=== PATIENT | male | born 1930 | race African-American/Black ===

== ENCOUNTER 2016-07-15 13:49 | Emergency (ER) | payer MEDICARE ==
[2016-07-15 15:00] LABS: VENOUS BLOOD BASE EXCESS -4.7 mmol/L; VENOUS BLOOD HCO3 20.7 mmol/L (20-32); VENOUS BLOOD PCO2 39.6 mmHg (35-63); VENOUS BLOOD PH 7.34 (7.30-7.42)
[2016-07-15 15:01] LABS: ABSOLUTE BASOPHILS # (AUTO) 0.1 10^3/uL (0.0-0.2); ABSOLUTE EOSINOPHILS # (AUTO) 0.1 10^3/uL (0.0-0.6); ABSOLUTE LYMPHOCYTES (AUTO) 1.6 10^3/uL (0.5-4.7); ABSOLUTE MONOCYTES (AUTO) 0.9 10^3/uL (0.1-1.4); ABSOLUTE NEUT (AUTO) 9.6 10^3/uL (1.7-8.2); BASOPHILS % (AUTO) 0.9 % (0-2); EOSINOPHILS % (AUTO) 0.7 % (0-6); HEMATOCRIT 24.7 % (37.9-51.0); HEMOGLOBIN 8.2 g/dL (13.5-17.0); HGB HCT DIFFERENCE -0.1; LYMPHOCYTES % (AUTO) 12.8 % (13-45); MEAN CORPUSCULAR HEMOGLOBIN 32.8 pg (27.0-33.4); MEAN CORPUSCULAR HGB CONC 33.2 g/dL (32.0-36.0); MEAN CORPUSCULAR VOLUME 99 fl (80-97); MONOCYTES % (AUTO) 7.7 % (3-13); RED CELL DISTRIBUTION WIDTH 16.5 % (11.5-14.0); SEGMENTED NEUTROPHILS % (AUTO) 77.9 % (42-78); WHITE BLOOD COUNT 12.3 10^3/uL (4.0-10.5)
[2016-07-15] MEDS ORDERED: IPRATROPIUM/ALBUTEROL 0.5-2.5 MG/3 ML AMPUL NEB ONE (15:07)
--- NOTE | 2016-07-15 15:07 | ER Document Report ---
[id number] Mode of Arrival: Medic Information source: Patient, Dr. Office Notes: 85-year-old male presents with complaints of intermittent productive cough over the past 3 days with generalized weakness. Patient denies any fevers or chills nausea vomiting or diarrhea. Patient denies any other concerns. He does note some wheezing which has resolved prior to my evaluation after breathing treatments TRAVEL OUTSIDE OF THE [place] IN LAST 30 DAYS: No - HPI Onset: Other - Three-day duration Onset/Duration: Persistent Quality of pain: No pain Severity: Mild Pain Level: 1 Associated symptoms: Body/muscle aches, Productive cough, Shortness of breath Exacerbated by: Denies Relieved by: Denies Similar symptoms previously: Yes Recently seen / treated by doctor: Yes - Related Data Allergies/Adverse Reactions: No Known Allergies Allergy (Unverified 11/16/15 22:22) Past Medical History - Social History Smoking Status: Never Smoker Cigarette use (# per day): No Chew tobacco use (# tins/day): No Smoking Education Provided: No Family History: CAD, Hyperlipidemia, Hypertension - Past Medical History Cardiac Medical History: Reports: Hx Atrial Fibrillation, Hx Hypertension Pulmonary Medical History: Reports: Hx COPD Endocrine Medical History: Reports: Hx Hypothyroidism Renal/ Medical History: Reports: Hx Benign Prostatic Hyperplasia GI Medical History: Reports: Hx Colonoscopy, Hx Endoscopy Musculoskeltal Medical History: Reports Hx Arthritis, Reports Hx Gout, Reports Hx Musculoskeletal Deformity, Reports Hx Musculoskeletal Trauma Traumatic Medical History: Reports: Hx Fractures - Foot Past Surgical History: Reports: Hx Abdominal Surgery - Hernia Repair, Hx Appendectomy, Hx Inguinal Hernia, Hx Orthopedic Surgery - R foot, Hx Tonsillectomy - Immunizations Hx Diphtheria, Pertussis, Tetanus Vaccination: Yes Hx Pneumococcal Vaccination: 05/20/06 Review of Systems - Review of Systems Notes: PHYSICAL EXAMINATION: GENERAL: Well-appearing, well-nourished and in no acute distress. HEAD: Atraumatic, normocephalic. EYES: Pupils equal round and reactive to light, extraocular movements intact, sclera anicteric, conjunctiva are normal. ENT: Nares patent, oropharynx clear without exudates. Moist mucous membranes. NECK: Normal range of motion, supple without lymphadenopathy LUNGS: Breath sounds clear to auscultation bilaterally and equal. No wheezes rales or rhonchi. No respiratory distress noted viral HEART: Regular rate and rhythm without murmurs ABDOMEN: Soft, nontender, nondistended abdomen. No guarding, no rebound. No masses appreciated. Musculoskeletal: Normal range of motion, no pitting or edema. No cyanosis. NEUROLOGICAL: Cranial nerves grossly intact. Normal speech, normal gait. Normal sensory, motor exams PSYCH: Normal mood, normal affect. SKIN: Warm, Dry, normal turgor, no rashes or lesions noted. Physical Exam - Vital signs Vitals: Temp Pulse Resp BP Pulse Ox 98.3 F 78 16 157/67 H 98 07/15/16 14:17 07/15/16 14:17 07/15/16 14:17 07/15/16 14:17 07/15/16 14:17 Course - Re-evaluation Re-evalutation: 07/15/16 15:07 Patient looks quite well in no respiratory distress, 07/15/16 16:18 pt ambulated in no distress, satting 100% will dc home with agreement of family 07/15/16 16:18 This is an 85-year-old gentleman who presented with concerns for pneumonia. Patient's chest x-ray is consistent with pneumonia, he has had normal vital signs throughout his visit, lab work notes chronic kidney disease mild anemia mild leukocytosis. Patient looks well. He was given breathing treatment prior to my evaluation and notes significant improvement in his breathing brother and [id number]: The room and they state they will return immediately if he does not feel well. I provided them with my card and phone number for the emergency department. Patient otherwise in no distress. Since patient is doing well I will give him the chance to go home as he wishes to be discharged, however if he does not do well I will immediately admit this patient if pain returns 07/15/16 19:54 After performing a Medical Screening Examination, I estimate there is LOW risk for ACUTE CORONARY SYNDROME, RESPIRATORY FAILURE, SEPSIS OR MENINGITIS, thus I consider the discharge disposition reasonable. The patient and I have discussed the diagnosis and risks, and we agree with discharging home with close follow- up. We also discussed returning to the Emergency Department immediately if new or worsening symptoms occur. We have discussed the symptoms which are most concerning (e.g., changing or worsening pain, trouble swallowing or breathing, neck stiffness, fever) that necessitate immediate return. 07/15/16 19:55 07/15/16 19:56 - Vital Signs Vital signs: Temp Pulse Resp BP Pulse Ox 98.3 F 78 15 162/60 H 99 07/15/16 16:47 07/15/16 14:17 07/15/16 16:01 07/15/16 16:47 07/15/16 16:47 - Laboratory Result Diagrams: 07/15/16 14:40 07/15/16 14:40 Laboratory results interpreted by me: 07/15/16 07/15/16 07/15/16 14:40 14:40 14:40 WBC 12.3 H RBC 2.50 L Hgb 8.2 L Hct 24.7 L MCV 99 H RDW 16.5 H Lymphocytes % 12.8 L Absolute Neutrophils 9.6 H PT 36.1 H Potassium 5.3 H Chloride 110 H BUN 39 H Creatinine 2.45 H Est GFR ( Amer) 30 L Est GFR (Non-Af Amer) 25 L Total Bilirubin 2.5 H Urine Protein Urine Ascorbic Acid 07/15/16 15:30 WBC RBC Hgb Hct MCV RDW Lymphocytes % Absolute Neutrophils PT Potassium Chloride BUN Creatinine Est GFR ( Amer) Est GFR (Non-Af Amer) Total Bilirubin Urine Protein 30 H Urine Ascorbic Acid 20 H - Diagnostic Test Radiology reviewed: Image reviewed, Reports reviewed Discharge - Discharge Clinical Impression: Cough Pneumonia Qualifiers: Pneumonia type: due to unspecified organism Laterality: right Lung location: lower lobe of lung Qualified Code(s): J18.1 - Lobar pneumonia, unspecified organism Condition: Stable Disposition: HOME, SELF-CARE Instructions: Pneumonia ([facility]) Additional Instructions: Return immediately if there are any concerns Prescriptions: Benzonatate [Tessalon Perle 100 mg Capsule] 100 mg PO Q8HP PRN #40 cap PRN Reason: Levofloxacin [Levaquin 750 mg Tablet] 750 mg PO DAILY #5 tablet Referrals: BILLY APARICIO DO [Primary Care Provider] - Follow up in 3-5 days
[2016-07-15 15:12] LABS: PROTHROMBIN TIME 36.1 SEC (11.4-15.4)
[2016-07-15 15:16] LABS: ALANINE AMINOTRANSFERASE 46 U/L (21-72); ALKALINE PHOSPHATASE 77 U/L (38-126); ANION GAP 12 (5-19); ASPARTATE AMINO TRANSFERASE 40 U/L (17-59); BILIRUBIN,TOTAL 2.5 mg/dL (0.2-1.3); BLOOD UREA NITROGEN 39 mg/dL (7-20); CALCIUM 9.6 mg/dL (8.4-10.2); CARBON DIOXIDE 22 mmol/L (22-30); CHLORIDE 110 mmol/L (98-107); CREATININE RESULT 2.45 mg/dL (0.52-1.25); GLUCOSE 93 mg/dL (75-110); POTASSIUM 5.3 mmol/L (3.6-5.0); SODIUM 143.6 mmol/L (137-145); TOTAL PROTEIN 7.7 g/dL (6.3-8.2)
[2016-07-15 15:52] LABS: APPEARANCE,URINE SLIGHTLY-CLOUDY; BILIRUBIN,URINE NEGATIVE (NEGATIVE); GLUCOSE, URINE NEGATIVE (NEGATIVE); KETONES,URINE NEGATIVE (NEGATIVE); LEUKOCYTE ESTERASE,URINE NEGATIVE (NEGATIVE); NITRITE,URINE NEGATIVE (NEGATIVE); PROTEIN,URINE 30 mg/dL (NEGATIVE); URINE SPECIFIC GRAVITY 1.013; UROBILINOGEN,URINE NEGATIVE mg/dL (<2.0)
[2016-07-15] MEDS ORDERED: LEVOFLOXACIN 750 MG TABLET PO ONE (15:58)
[2016-07-15] MEDS ORDERED: ALBUTEROL SULFATE HFA (90 MCG/PUFF) 8 GM MDI (1 MDI/ER DISP) IH PRN (16:19)
[2016-07-15] MEDS ORDERED: BENZONATATE 100 MG CAPSULE PO ONE (16:27)
[2016-07-15 16:48] VITALS: BP 162/60
--- NOTE | 2016-07-15 17:41 | EKG REPORT ---
SEVERITY:- ABNORMAL ECG - SINUS RHYTHM PROBABLE LEFT ATRIAL ABNORMALITY LVH WITH SECONDARY REPOLARIZATION ABNORMALITY : Confirmed by: Aydee Boston MD 15-Jul-2016 17:40:51
== END 2016-07-15 16:48 | disposition home or self-care (01) ==
LOC: ER 13:49
DX: J18.1 Lobar pneumonia, unspecified organism (principal); R05 Cough; R53.1 Weakness
CPT/HCPCS: 93005; 94640; 99284; 36415; 87040; 87086; 82962; 85025; 85610; 80053; 81001; 82803; 83605; 71010; 93010; A9270 ×3; J3490; J7620

== ENCOUNTER → 2016-10-22 | Outpatient (CLI) | payer MEDICARE ==
[2016-10-22 16:49] LABS: HEMATOCRIT 28.7 % (37.9-51.0); HEMOGLOBIN 9.8 g/dL (13.5-17.0); HGB HCT DIFFERENCE 0.7; MEAN CORPUSCULAR HEMOGLOBIN 32.7 pg (27.0-33.4); MEAN CORPUSCULAR VOLUME 96 fl (80-97); RED BLOOD COUNT 2.99 10^6/uL (4.35-5.55); RED CELL DISTRIBUTION WIDTH 17.8 % (11.5-14.0); WHITE BLOOD COUNT 9.5 10^3/uL (4.0-10.5)
[2016-10-22 17:18] LABS: ANION GAP 12 (5-19); BLOOD UREA NITROGEN 30 mg/dL (7-20); CALCIUM 9.3 mg/dL (8.4-10.2); CARBON DIOXIDE 20 mmol/L (22-30); CHLORIDE 110 mmol/L (98-107); CREATININE RESULT 1.97 mg/dL (0.52-1.25); GLUCOSE 99 mg/dL (75-110); POTASSIUM 5.1 mmol/L (3.6-5.0)
[2016-10-23 17:15] LABS: APPEARANCE,URINE SLIGHTLY-CLOUDY; BILIRUBIN,URINE NEGATIVE (NEGATIVE); GLUCOSE, URINE NEGATIVE (NEGATIVE); KETONES,URINE NEGATIVE (NEGATIVE); LEUKOCYTE ESTERASE,URINE NEGATIVE (NEGATIVE); NITRITE,URINE NEGATIVE (NEGATIVE); PROTEIN,URINE NEGATIVE (NEGATIVE); URINE SPECIFIC GRAVITY 1.011; UROBILINOGEN,URINE NEGATIVE mg/dL (<2.0)
== END ==
LOC: OD 16:07
PROVIDERS: ATTEND Internal Medicine Nephrology
DX: I12.9 Hypertensive chronic kidney disease with stage 1 through stage 4 chronic kidney disease, or unspecified chronic kidney disease (principal); N18.3 Chronic kidney disease, stage 3 (moderate); R60.9 Edema, unspecified; E11.9 Type 2 diabetes mellitus without complications; E87.5 Hyperkalemia
CPT/HCPCS: 36415; 80048; 81001; 85027

== ENCOUNTER → 2017-05-22 | Outpatient (CLI) | payer MEDICARE ==
[2017-05-22 09:04] LABS: ALANINE AMINOTRANSFERASE 27 U/L (21-72); ALKALINE PHOSPHATASE 73 U/L (38-126); ASPARTATE AMINO TRANSFERASE 25 U/L (17-59); BILIRUBIN,DIRECT 0.3 mg/dL (0.0-0.4); BILIRUBIN,TOTAL 0.5 mg/dL (0.2-1.3); CHOLESTEROL 131.25 mg/dL (0-200); TOTAL PROTEIN 7.3 g/dL (6.3-8.2); TRIGLYCERIDES 80 mg/dL (<150)
[2017-05-22 09:15] LABS: DIRECT LDL 63 mg/dL (<100)
== END ==
LOC: OD 08:11
PROVIDERS: ATTEND Specialist
DX: I27.20 Pulmonary hypertension, unspecified (principal); I27.9 Pulmonary heart disease, unspecified; I34.0 Nonrheumatic mitral (valve) insufficiency; E03.9 Hypothyroidism, unspecified; E78.5 Hyperlipidemia, unspecified; I36.1 Nonrheumatic tricuspid (valve) insufficiency; I48.2 Chronic atrial fibrillation; R09.89 Other specified symptoms and signs involving the circulatory and respiratory systems; R06.02 Shortness of breath; R06.00 Dyspnea, unspecified; I35.0 Nonrheumatic aortic (valve) stenosis; I12.9 Hypertensive chronic kidney disease with stage 1 through stage 4 chronic kidney disease, or unspecified chronic kidney disease; N18.3 Chronic kidney disease, stage 3 (moderate); I35.1 Nonrheumatic aortic (valve) insufficiency; Z79.899 Other long term (current) drug therapy
CPT/HCPCS: 36415; 80061; 80076

== ENCOUNTER → 2017-06-05 | Outpatient (CLI) | payer MEDICARE ==
--- NOTE | 2017-06-05 19:55 | XCELERA REPORT ---
[address] [address] Transthoracic Echocardiogram Report Name: IOANA FELICIANO Age: 86 yrs Gender: Male : 1930 Patient Status: Outpatient Patient Location: Study Date: 06/05/2017 03:09 PM Height: 72 in Weight: 180 lb BSA: 2.0 m2 Procedure: A two-dimensional transthoracic echocardiogram with color flow Doppler was performed. The study was technically limited with all images being suboptimal in quality. Reason For Study: SOB History: Shortness of breath. Ordering Physician: AYDEE ROSENBAUM Performed By: Latisha Brown Interpretation Summary The left ventricle is normal in size. There is mild concentric left ventricular hypertrophy. LV EF is > than 60% Left ventricular systolic function is normal. Doppler measurements suggest normal left ventricular diastolic function The left ventricular wall motion is normal. There is no thrombus. The right ventricle is normal in size and function. The left atrial size is normal. There is no evidence of mitral valve prolapse. There is no vegetation seen on the mitral valve. There is mild mitral stenosis There is a mild amount of mitral regurgitation There is no aortic valvular vegetation. There is severe aortic stenosis There is a peak gradient of 92 mm of Hg. There is a moderate amount of aortic regurgitation There is no LVOT obstruction. AV mean gradient 54 mm of Hg. There is a mild amount of tricuspid regurgitation There is no tricuspid stenosis. There is mild pulmonary hypertension by echo RVSP is 42 to 47 mm of Hg , with RA mean of 5 to 19. There is a trace amount of pulmonic regurgitation There is no pulmonic valvular stenosis. The aortic root is normal size. There is no pericardial effusion. MMode/2D Measurements & Calculations RVDd: 3.9 cm LVIDd: 5.1 cmFS: 33.2 % Ao root diam: 2.6 cm IVSd: 1.3 cm LVIDs: 3.4 cmEDV(Teich): 121.8 ml LVPWd: 1.3 cmESV(Teich): 46.9 ml Ao root area: 5.4 cm2 EF(Teich): 61.5 % LA dimension: 3.3 cm LVOT diam: 2.1 cm LVOT area: 3.6 cm2 Doppler Measurements & Calculations MV E max conor: MV P1/2t max conor: Ao V2 max: AI max conor: 181.0 cm/sec 179.6 cm/sec 478.9 cm/sec 397.4 cm/sec MV A max conor: MV P1/2t: 109.7 msec Ao max PG: AI max P.6 cm/sec MVA(P1/2t): 2.0 cm2 91.8 mmHg 63.3 mmHg MV E/A: 1.4 MV dec slope: Ao V2 mean: AI dec slope: 479.4 cm/sec2 345.2 cm/sec 236.3 cm/sec2 Ao mean PG: AI P1/2t: 53.5 mmHg 492.5 msec Ao V2 VTI: 122.2 cm BUNNY(I,D): 1.1 cm2 BUNNY(V,D): 1.0 cm2 LV V1 max PG: SV(LVOT): 138.4 ml PA V2 max: PI end-d conor: 7.5 mmHg 100.2 cm/sec 135.7 cm/sec LV V1 mean PG: PA max P.1 mmHg 4.0 mmHg LV V1 max: 136.4 cm/sec LV V1 mean: 95.3 cm/sec LV V1 VTI: 38.9 cm TR max conor: 301.1 cm/sec TR max P.3 mmHg Left Ventricle The left ventricle is normal in size. There is mild concentric left ventricular hypertrophy. LV EF is > than 60%. Left ventricular systolic function is normal. Doppler measurements suggest normal left ventricular diastolic function. The left ventricular wall motion is normal. There is no thrombus. Right Ventricle The right ventricle is normal in size and function. Atria The right atrium is normal. The left atrial size is normal. Mitral Valve There is mild mitral leaflet calcification. There is mild mitral annular calcification. There is no evidence of mitral valve prolapse. There is no vegetation seen on the mitral valve. There is mild mitral stenosis. There is a mild amount of mitral regurgitation. Aortic Valve There is no aortic valvular vegetation. There is severe aortic stenosis. There is a peak gradient of 92 mm of Hg. There is no LVOT obstruction. AV mean gradient 54 mm of Hg. There is a moderate amount of aortic regurgitation. Tricuspid Valve There is no tricuspid stenosis. There is a mild amount of tricuspid regurgitation. There is mild pulmonary hypertension by echo. RVSP is 42 to 47 mm of Hg , with RA mean of 5 to 19. Pulmonic Valve There is no pulmonic valvular stenosis. There is a trace amount of pulmonic regurgitation. Great Vessels The aortic root is normal size. Effusions There is no pericardial effusion. : AYDEE ROSENBAUM > Aydee Rosenbaum
== END ==
LOC: SP 14:54
PROVIDERS: ATTEND Specialist
DX: R06.02 Shortness of breath (principal)
CPT/HCPCS: 93306

== ENCOUNTER → 2017-06-14 | Outpatient (CLI) | payer MEDICARE ==
[2017-06-14 10:56] LABS: HEMATOCRIT 31.2 % (37.9-51.0); HEMOGLOBIN 10.5 g/dL (13.5-17.0); MEAN CORPUSCULAR HEMOGLOBIN 33.4 pg (27.0-33.4); MEAN CORPUSCULAR HGB CONC 33.8 g/dL (32.0-36.0); MEAN CORPUSCULAR VOLUME 99 fl (80-97); PLATELET COUNT 217 10^3/uL (150-450); RED BLOOD COUNT 3.15 10^6/uL (4.35-5.55); RED CELL DISTRIBUTION WIDTH 17.1 % (11.5-14.0); WHITE BLOOD COUNT 8.2 10^3/uL (4.0-10.5)
[2017-06-14 11:07] LABS: APPEARANCE,URINE CLEAR; BILIRUBIN,URINE NEGATIVE (NEGATIVE); COLOR,URINE YELLOW; GLUCOSE, URINE NEGATIVE (NEGATIVE); KETONES,URINE NEGATIVE (NEGATIVE); LEUKOCYTE ESTERASE,URINE NEGATIVE (NEGATIVE); NITRITE,URINE NEGATIVE (NEGATIVE); PROTEIN,URINE NEGATIVE (NEGATIVE); URINE SPECIFIC GRAVITY 1.009; UROBILINOGEN,URINE NEGATIVE mg/dL (<2.0)
[2017-06-14 11:28] LABS: ANION GAP 11 (5-19); BLOOD UREA NITROGEN 41 mg/dL (7-20); CALCIUM 9.4 mg/dL (8.4-10.2); CARBON DIOXIDE 22 mmol/L (22-30); CHLORIDE 108 mmol/L (98-107); GLUCOSE 99 mg/dL (75-110); POTASSIUM 5.7 mmol/L (3.6-5.0); SODIUM 140.7 mmol/L (137-145)
== END ==
LOC: OD 10:12
PROVIDERS: ATTEND Physician Assistant Medical
DX: I12.9 Hypertensive chronic kidney disease with stage 1 through stage 4 chronic kidney disease, or unspecified chronic kidney disease (principal); N18.3 Chronic kidney disease, stage 3 (moderate); D64.9 Anemia, unspecified; I50.9 Heart failure, unspecified
CPT/HCPCS: 36415; 80048; 81001; 85027

== ENCOUNTER → 2017-06-17 | Outpatient (CLI) | payer MEDICARE | LOC: OD 08:35 | PROVIDERS: ATTEND Physician Assistant Medical | DX: E87.5 Hyperkalemia (principal) | CPT/HCPCS: 36415; 84132 ==

== ENCOUNTER → 2017-07-12 | Outpatient (CLI) | payer MEDICARE ==
[2017-07-12 09:06] LABS: HEMATOCRIT 28.2 % (37.9-51.0); MEAN CORPUSCULAR HEMOGLOBIN 34.5 pg (27.0-33.4); MEAN CORPUSCULAR HGB CONC 35.4 g/dL (32.0-36.0); MEAN CORPUSCULAR VOLUME 97 fl (80-97); PLATELET COUNT 206 10^3/uL (150-450); RED BLOOD COUNT 2.89 10^6/uL (4.35-5.55); RED CELL DISTRIBUTION WIDTH 16.9 % (11.5-14.0); WHITE BLOOD COUNT 8.5 10^3/uL (4.0-10.5)
[2017-07-12 09:37] LABS: ALANINE AMINOTRANSFERASE 22 U/L (21-72); ALBUMIN 4.1 g/dL (3.5-5.0); ALKALINE PHOSPHATASE 57 U/L (38-126); ANION GAP 8 (5-19); ASPARTATE AMINO TRANSFERASE 26 U/L (17-59); BILIRUBIN,DIRECT 0.4 mg/dL (0.0-0.4); BILIRUBIN,TOTAL 0.9 mg/dL (0.2-1.3); BLOOD UREA NITROGEN 38 mg/dL (7-20); CALCIUM 9.3 mg/dL (8.4-10.2); CARBON DIOXIDE 22 mmol/L (22-30); CHLORIDE 109 mmol/L (98-107); GLUCOSE 95 mg/dL (75-110); IRON(TIBC) 81.7 ug/dL (49-181); PHOSPHORUS 3.3 mg/dL (2.5-4.5); POTASSIUM 5.5 mmol/L (3.6-5.0); SODIUM 138.8 mmol/L (137-145); TOTAL PROTEIN 7.4 g/dL (6.3-8.2); URIC ACID 6.5 mg/dL (3.5-8.5)
[2017-07-15 16:39] LABS: A/G RATIO 1.2 (0.7-1.7); ALBUMIN 2 3.8 g/dL (2.9-4.4); ALPHA-2-GLOBULIN 2 0.6 g/dL (0.4-1.0); BETA GLOBULINS 0.9 g/dL (0.7-1.3); GAMMA GLOBULIN 1.6 g/dL (0.4-1.8); GLOBULIN TOTAL 3.3 g/dL (2.2-3.9); MONOCLONAL SPIKE Not Observed g/dL (Not Observed); PROTEIN TOTAL SERUM 7.1 g/dL (6.0-8.5)
== END ==
LOC: OD 08:19
PROVIDERS: ATTEND Internal Medicine Nephrology
DX: I13.0 Hypertensive heart and chronic kidney disease with heart failure and stage 1 through stage 4 chronic kidney disease, or unspecified chronic kidney disease (principal); I50.9 Heart failure, unspecified; N18.3 Chronic kidney disease, stage 3 (moderate); D64.9 Anemia, unspecified; E87.5 Hyperkalemia
CPT/HCPCS: 36415; 80053; 82728; 83540; 83550; 83970; 84100; 84165; 84443; 84550; 85027

== ENCOUNTER → 2017-07-19 | Outpatient (CLI) | payer MEDICARE | LOC: OD 12:44 | PROVIDERS: ATTEND Internal Medicine Nephrology | DX: N18.3 Chronic kidney disease, stage 3 (moderate) (principal); E87.5 Hyperkalemia | CPT/HCPCS: 36415; 84132 ==

== ENCOUNTER → 2017-07-25 | Outpatient (CLI) | payer MEDICARE | LOC: OD 13:06 | PROVIDERS: ATTEND Internal Medicine Nephrology | DX: E87.5 Hyperkalemia (principal) | CPT/HCPCS: 36415; 84132 ==

== ENCOUNTER → 2017-08-28 | Outpatient (CLI) | payer MEDICARE ==
[2017-08-28 14:20] LABS: HEMATOCRIT 27.9 % (37.9-51.0); HEMOGLOBIN 9.6 g/dL (13.5-17.0); MEAN CORPUSCULAR HEMOGLOBIN 33.4 pg (27.0-33.4); MEAN CORPUSCULAR HGB CONC 34.3 g/dL (32.0-36.0); MEAN CORPUSCULAR VOLUME 98 fl (80-97); PLATELET COUNT 207 10^3/uL (150-450); RED BLOOD COUNT 2.86 10^6/uL (4.35-5.55); RED CELL DISTRIBUTION WIDTH 17.4 % (11.5-14.0); WHITE BLOOD COUNT 9.3 10^3/uL (4.0-10.5)
[2017-08-28 14:44] LABS: ANION GAP 10 (5-19); BLOOD UREA NITROGEN 42 mg/dL (7-20); CALCIUM 9.1 mg/dL (8.4-10.2); CARBON DIOXIDE 23 mmol/L (22-30); CHLORIDE 106 mmol/L (98-107); GLUCOSE 88 mg/dL (75-110); PHOSPHORUS 3.4 mg/dL (2.5-4.5); SODIUM 138.7 mmol/L (137-145); URIC ACID 4.9 mg/dL (3.5-8.5)
== END ==
LOC: OD 13:46
PROVIDERS: ATTEND Internal Medicine Nephrology
DX: N18.3 Chronic kidney disease, stage 3 (moderate) (principal); E87.5 Hyperkalemia; I50.9 Heart failure, unspecified; M10.00 Idiopathic gout, unspecified site
CPT/HCPCS: 36415; 80048; 83970; 84100; 84550; 85027

== ENCOUNTER → 2017-09-05 | Outpatient (CLI) | payer MEDICARE ==
--- NOTE | 2017-09-05 17:03 | RADIOLOGY REPORT (SQ) ---
EXAM DESCRIPTION: CHEST PA/LATERAL COMPLETED DATE/TIME: 09/05/2017 4:54 pm REASON FOR STUDY: HEART FAILURE, UNSPECIFIED COMPARISON: June 2016 EXAM PARAMETERS: NUMBER OF VIEWS: two views TECHNIQUE: Digital Frontal and Lateral radiographic views of the chest acquired. RADIATION DOSE: NA LIMITATIONS: none FINDINGS: LUNGS AND PLEURA: No consolidations or pleural effusions are identified. Prominent fairly diffuse bilateral interstitial changes are identified which presumably are chronic in nature however the possibility of an acute interstitial pneumonitis or interstitial edema cannot be excluded. MEDIASTINUM AND HILAR STRUCTURES: No masses or contour abnormalities. HEART AND VASCULAR STRUCTURES: Heart normal size. No evidence for failure. BONES: No acute findings. HARDWARE: None in the chest. OTHER: No other significant finding. IMPRESSION: No consolidations or pleural effusions are identified. Prominent interstitial changes a s noted above which presumably are chronic in nature although the possibility of an acute process can not be excluded. Clinical correlation is recommended. Other findings as noted above. TECHNICAL DOCUMENTATION: JOB ID: [id number] [employer]- All Rights Reserved Reading location - IP/workstation name: [email or web address]
== END ==
LOC: OD 16:40
PROVIDERS: ATTEND Internal Medicine Nephrology
DX: I13.0 Hypertensive heart and chronic kidney disease with heart failure and stage 1 through stage 4 chronic kidney disease, or unspecified chronic kidney disease (principal); N18.3 Chronic kidney disease, stage 3 (moderate); I50.9 Heart failure, unspecified; R06.02 Shortness of breath; D64.9 Anemia, unspecified
CPT/HCPCS: 71046

== ENCOUNTER → 2017-09-11 | Outpatient (CLI) | payer MEDICARE ==
[2017-09-11 15:50] LABS: HEMATOCRIT 29.9 % (37.9-51.0); HEMOGLOBIN 10.1 g/dL (13.5-17.0); MEAN CORPUSCULAR HGB CONC 33.8 g/dL (32.0-36.0); MEAN CORPUSCULAR VOLUME 98 fl (80-97); PLATELET COUNT 230 10^3/uL (150-450); RED BLOOD COUNT 3.06 10^6/uL (4.35-5.55); RED CELL DISTRIBUTION WIDTH 17.5 % (11.5-14.0); WHITE BLOOD COUNT 8.5 10^3/uL (4.0-10.5)
[2017-09-11 16:08] LABS: ANION GAP 15 (5-19); BLOOD UREA NITROGEN 46 mg/dL (7-20); CALCIUM 9.1 mg/dL (8.4-10.2); CARBON DIOXIDE 27 mmol/L (22-30); CHLORIDE 102 mmol/L (98-107); GLUCOSE 98 mg/dL (75-110); POTASSIUM 4.4 mmol/L (3.6-5.0); SODIUM 143.5 mmol/L (137-145)
== END ==
LOC: OD 14:32
PROVIDERS: ATTEND Internal Medicine Nephrology
DX: I12.9 Hypertensive chronic kidney disease with stage 1 through stage 4 chronic kidney disease, or unspecified chronic kidney disease (principal); N18.3 Chronic kidney disease, stage 3 (moderate); E87.5 Hyperkalemia; D64.9 Anemia, unspecified
CPT/HCPCS: 36415; 80048; 83735; 85027

== ENCOUNTER → 2017-09-27 | Outpatient (CLI) | payer MEDICARE ==
[2017-09-27 15:31] LABS: HEMATOCRIT 28.4 % (37.9-51.0); HEMOGLOBIN 9.9 g/dL (13.5-17.0); MEAN CORPUSCULAR HEMOGLOBIN 34.1 pg (27.0-33.4); MEAN CORPUSCULAR VOLUME 98 fl (80-97); PLATELET COUNT 203 10^3/uL (150-450); RED BLOOD COUNT 2.91 10^6/uL (4.35-5.55); RED CELL DISTRIBUTION WIDTH 16.9 % (11.5-14.0); WHITE BLOOD COUNT 8.7 10^3/uL (4.0-10.5)
[2017-09-27 15:53] LABS: ANION GAP 11 (5-19); BLOOD UREA NITROGEN 51 mg/dL (7-20); CALCIUM 9.7 mg/dL (8.4-10.2); CARBON DIOXIDE 29 mmol/L (22-30); CHLORIDE 102 mmol/L (98-107); GLUCOSE 119 mg/dL (75-110); PHOSPHORUS 3.4 mg/dL (2.5-4.5); POTASSIUM 4.4 mmol/L (3.6-5.0); SODIUM 142.1 mmol/L (137-145)
== END ==
LOC: OD 14:39
PROVIDERS: ATTEND Internal Medicine Nephrology
DX: N18.3 Chronic kidney disease, stage 3 (moderate) (principal); I50.9 Heart failure, unspecified; E87.5 Hyperkalemia
CPT/HCPCS: 36415; 80048; 83735; 83970; 84100; 85027

== ENCOUNTER → 2017-11-08 | Outpatient (CLI) | payer MEDICARE ==
[2017-11-08 11:32] LABS: HEMATOCRIT 29.3 % (37.9-51.0); HEMOGLOBIN 10.2 g/dL (13.5-17.0); MEAN CORPUSCULAR HEMOGLOBIN 34.5 pg (27.0-33.4); MEAN CORPUSCULAR HGB CONC 34.7 g/dL (32.0-36.0); MEAN CORPUSCULAR VOLUME 99 fl (80-97); PLATELET COUNT 189 10^3/uL (150-450); RED BLOOD COUNT 2.95 10^6/uL (4.35-5.55); RED CELL DISTRIBUTION WIDTH 17.3 % (11.5-14.0); WHITE BLOOD COUNT 7.4 10^3/uL (4.0-10.5)
[2017-11-08 11:47] LABS: ALBUMIN 4.1 g/dL (3.5-5.0); ASPARTATE AMINO TRANSFERASE 23 U/L (17-59); BILIRUBIN,DIRECT 0.4 mg/dL (0.0-0.4); BILIRUBIN,TOTAL 0.6 mg/dL (0.2-1.3); BLOOD UREA NITROGEN 46 mg/dL (7-20); CARBON DIOXIDE 23 mmol/L (22-30); CHLORIDE 109 mmol/L (98-107); CHOLESTEROL 144.91 mg/dL (0-200); GLUCOSE 98 mg/dL (75-110); NEONATAL BILIRUBIN RESULT 0.2 mg/dL (0.1-1.1); TOTAL PROTEIN 7.2 g/dL (6.3-8.2); TRIGLYCERIDES 111 mg/dL (<150)
[2017-11-08 11:48] LABS: ALANINE AMINOTRANSFERASE 22 U/L (21-72); ALKALINE PHOSPHATASE 58 U/L (38-126); CALCIUM 9.5 mg/dL (8.4-10.2); POTASSIUM 4.3 mmol/L (3.6-5.0)
[2017-11-08 11:49] LABS: ANION GAP 12 (5-19); SODIUM 144.3 mmol/L (137-145)
[2017-11-08 11:58] LABS: DIRECT LDL 71 mg/dL (<100)
[2017-11-08 12:03] LABS: FREE T4 (FREE THYROXINE) 1.01 ng/dL (0.78-2.19)
[2017-11-08 12:26] LABS: CALCIUM 9.5 mg/dL (8.4-10.2)
[2017-11-08 12:27] LABS: ANION GAP 12 (5-19); BLOOD UREA NITROGEN 46 mg/dL (7-20); CARBON DIOXIDE 23 mmol/L (22-30); CHLORIDE 109 mmol/L (98-107); GLUCOSE 98 mg/dL (75-110); PHOSPHORUS 3.8 mg/dL (2.5-4.5); POTASSIUM 4.3 mmol/L (3.6-5.0); SODIUM 144.3 mmol/L (137-145)
[2017-11-08 12:40] LABS: IRON(TIBC) 28.7 ug/dL (49-181)
== END ==
LOC: OD 10:53
PROVIDERS: ATTEND Internal Medicine Nephrology
DX: I13.0 Hypertensive heart and chronic kidney disease with heart failure and stage 1 through stage 4 chronic kidney disease, or unspecified chronic kidney disease (principal); N18.3 Chronic kidney disease, stage 3 (moderate); I50.9 Heart failure, unspecified; D64.9 Anemia, unspecified; E78.2 Mixed hyperlipidemia; E06.3 Autoimmune thyroiditis
CPT/HCPCS: 36415; 80048; 80053; 80061; 82728; 83540; 83550; 83970; 84100; 84439; 84443; 85027

== ENCOUNTER → 2018-01-02 | Outpatient (CLI) | payer MEDICARE ==
[2018-01-02 10:27] LABS: HEMATOCRIT 30.3 % (37.9-51.0); HEMOGLOBIN 10.2 g/dL (13.5-17.0); MEAN CORPUSCULAR HEMOGLOBIN 33.7 pg (27.0-33.4); MEAN CORPUSCULAR HGB CONC 33.8 g/dL (32.0-36.0); MEAN CORPUSCULAR VOLUME 100 fl (80-97); PLATELET COUNT 228 10^3/uL (150-450); RED BLOOD COUNT 3.04 10^6/uL (4.35-5.55); RED CELL DISTRIBUTION WIDTH 18.9 % (11.5-14.0); WHITE BLOOD COUNT 10.1 10^3/uL (4.0-10.5)
[2018-01-02 11:20] LABS: ANION GAP 16 (5-19); BLOOD UREA NITROGEN 57 mg/dL (7-20); CALCIUM 8.8 mg/dL (8.4-10.2); CARBON DIOXIDE 18 mmol/L (22-30); CHLORIDE 110 mmol/L (98-107); GLUCOSE 92 mg/dL (75-110); POTASSIUM 4.5 mmol/L (3.6-5.0); SODIUM 143.8 mmol/L (137-145)
== END ==
LOC: OD 09:38
PROVIDERS: ATTEND Internal Medicine Nephrology
DX: N18.3 Chronic kidney disease, stage 3 (moderate) (principal); I50.9 Heart failure, unspecified
CPT/HCPCS: 36415; 80048; 83735; 85027

== ENCOUNTER → 2018-03-04 | Outpatient (CLI) | payer MEDICARE ==
[2018-03-04 11:47] LABS: HEMATOCRIT 33.7 % (37.9-51.0); HEMOGLOBIN 11.3 g/dL (13.5-17.0); MEAN CORPUSCULAR HEMOGLOBIN 32.9 pg (27.0-33.4); MEAN CORPUSCULAR HGB CONC 33.4 g/dL (32.0-36.0); MEAN CORPUSCULAR VOLUME 98 fl (80-97); PLATELET COUNT 211 10^3/uL (150-450); RED BLOOD COUNT 3.43 10^6/uL (4.35-5.55); RED CELL DISTRIBUTION WIDTH 20.4 % (11.5-14.0); WHITE BLOOD COUNT 11.3 10^3/uL (4.0-10.5)
[2018-03-04 12:03] LABS: ANION GAP 10 (5-19); BLOOD UREA NITROGEN 35 mg/dL (7-20); CALCIUM 9.4 mg/dL (8.4-10.2); CARBON DIOXIDE 21 mmol/L (22-30); CHLORIDE 111 mmol/L (98-107); GLUCOSE 102 mg/dL (75-110); PHOSPHORUS 4.2 mg/dL (2.5-4.5); POTASSIUM 5.2 mmol/L (3.6-5.0); SODIUM 142.3 mmol/L (137-145)
== END ==
LOC: OD 10:46
PROVIDERS: ATTEND Internal Medicine Nephrology
DX: I13.0 Hypertensive heart and chronic kidney disease with heart failure and stage 1 through stage 4 chronic kidney disease, or unspecified chronic kidney disease (principal); N18.4 Chronic kidney disease, stage 4 (severe); I50.9 Heart failure, unspecified; D64.9 Anemia, unspecified
CPT/HCPCS: 36415; 80048; 83735; 83970; 84100; 85027

== ENCOUNTER 2018-06-07 12:52 | Emergency (ER) | payer MEDICARE ==
--- NOTE | 2018-06-07 13:26 | ER Document Report ---
ED Medical Screen (RME) - General Chief Complaint: Hip Pain Stated Complaint: FALL-HIP/LEG PAIN Time Seen by Provider: 06/07/18 13:24 Notes: Patient tripped injuring his house and fell on his left hip. Ever since, he is not been able to bear weight on the hip. Denies any other injuries such as head or neck, chest, or abdomen. History of some surgical procedure for aortic stenosis performed at [facility]. On aspirin but no other blood thinners. TRAVEL OUTSIDE OF THE [place] IN LAST 30 DAYS: No - Related Data Allergies/Adverse Reactions: No Known Allergies Allergy (Unverified 11/16/15 22:22) Past Medical History - Social History Chew tobacco use (# tins/day): No Frequency of alcohol use: None Drug Abuse: None - Past Medical History Cardiac Medical History: Reports: Hx Atrial Fibrillation, Hx Hypertension Pulmonary Medical History: Reports: Hx COPD Endocrine Medical History: Reports: Hx Hypothyroidism Renal/ Medical History: Reports: Hx Benign Prostatic Hyperplasia. Denies: Hx Peritoneal Dialysis GI Medical History: Reports: Hx Colonoscopy, Hx Endoscopy Musculoskeltal Medical History: Reports Hx Arthritis, Reports Hx Gout, Reports Hx Musculoskeletal Deformity, Reports Hx Musculoskeletal Trauma Traumatic Medical History: Reports: Hx Fractures - Foot Past Surgical History: Reports: Hx Abdominal Surgery - Hernia Repair, Hx Appendectomy, Hx Cardiac Surgery - aortic vavle replacement., Hx Inguinal Hernia, Hx Orthopedic Surgery - R foot, Hx Tonsillectomy - Immunizations Hx Diphtheria, Pertussis, Tetanus Vaccination: Yes Physical Exam - Vital signs Vitals: Temp Pulse Resp BP Pulse Ox 97.6 F 56 L 18 158/55 H 98 06/07/18 13:11 06/07/18 13:11 06/07/18 13:11 06/07/18 13:11 06/07/18 13:11 Course - Vital Signs Vital signs: Temp Pulse Resp BP Pulse Ox 97.6 F 56 L 18 158/55 H 98 06/07/18 13:11 06/07/18 13:11 06/07/18 13:11 06/07/18 13:11 06/07/18 13:11 Doctor's Discharge - Discharge Referrals: Morris CHRISTIANSON MD [Primary Care Provider] - Follow up as needed
--- NOTE | 2018-06-07 14:03 | RADIOLOGY REPORT (SQ) ---
EXAM DESCRIPTION: HIP LEFT AP/LATERAL COMPLETED DATE/TIME: 06/07/2018 1:43 pm REASON FOR STUDY: Fell on left hip 2 days ago. COMPARISON: None. NUMBER OF VIEWS: Two views. TECHNIQUE: AP pelvis and additional frog-leg view of the left hip. LIMITATIONS: None. FINDINGS: MINERALIZATION: Normal. LEFT HIP: No fracture or dislocation. No worrisome bone lesions. RIGHT HIP: No fracture or dislocation. No worrisome bone lesions. PUBIS AND ISCHIUM: No fracture. PELVIS: No fracture. SACRUM: No fracture or dislocation. No worrisome bone lesions. LOWER LUMBAR SPINE: No fracture or dislocation. No worrisome bone lesions. No significant disc disea se. SOFT TISSUES: No findings. OTHER: No other significant finding. IMPRESSION: NEGATIVE STUDY OF THE LEFT HIP AND PELVIS. NO RADIOGRAPHIC EVIDENCE OF ACUTE INJURY. TECHNICAL DOCUMENTATION: JOB ID: [id number] [employer]- All Rights Reserved Reading location - IP/workstation name: [email or web address]
[2018-06-07] MEDS ORDERED: METHYLPREDNISOLONE ACETATE INJ 40 MG/1 ML ML IM ONE (14:29)
[2018-06-07] MEDS ORDERED: ACETAMINOPHEN 325 MG TABLET PO ONE (14:29)
--- NOTE | 2018-06-07 14:34 | ER Document Report ---
ED General - General Chief Complaint: Hip Pain Stated Complaint: FALL-HIP/LEG PAIN Time Seen by Provider: 06/07/18 13:24 Notes: Patient is a 87-year-old male that presents to the emergency department for chief complaint of left hip pain after fall. He states that he tripped and fell this past , while he was at home, this was in his garage going to the door, and he landed on his left side. Denies head or neck injury. Denies numbness, weakness or tingling. Denies having any headache at this time. He is mainly complaining of pain in the left hip laterally, which she describes as a 4 out of 10, but can be worse with ambulating, at rest, it is not causing him any pain. He denies having any lightheadedness, chest pain, shortness of breath, rib pain or arm pain. Past Medical History: CKD, anemia Past Surgical History: TAVR Social History: Denies tobacco, alcohol or drug use Family History: Reviewed and noncontributory for presenting illness Allergies: Reviewed, see documented allergy list. REVIEW OF SYSTEMS: Other than noted above, the 12 point review of systems was reviewed with the patient and were negative, all pertinent findings are included in the HPI. PHYSICAL EXAMINATION: Vital signs reviewed, nursing noted reviewed. GENERAL: Elderly male, well-appearing, well-nourished and in no acute distress. HEAD: Atraumatic, normocephalic. EYES: Eyes appear normal, extraocular movements intact, sclera anicteric, conjunctiva are normal. ENT: nares patent, oropharynx clear without exudates. Moist mucous membranes. NECK: Normal range of motion, supple without lymphadenopathy LUNGS: Breath sounds clear to auscultation bilaterally and equal. No wheezes rales or rhonchi. HEART: Heart rate mildly bradycardic, regular rhythm with 1/6 systolic murmur ABDOMEN: Soft, nontender, normoactive bowel sounds. No rebound, guarding, or rigidity. No masses appreciated. EXTREMITIES: Patient has mild tenderness over the left trochanteric bursa, no hematoma or ecchymosis noted, no gross deformities. Negative logrolling, patient has good range of motion of the hip, knee and ankle. No other injuries or tenderness noted, the rest the extremity exam is grossly unremarkable, nontender, good range of motion, no pitting or edema. NEUROLOGICAL: No focal neurological deficits. Moves all extremities spontaneously Motor and sensory grossly intact on exam. PSYCH: Normal mood, normal affect. SKIN: Warm, Dry, normal turgor, no rashes or lesions noted on exposed skin TRAVEL OUTSIDE OF THE [place] IN LAST 30 DAYS: No - Related Data Allergies/Adverse Reactions: No Known Allergies Allergy (Unverified 11/16/15 22:22) Past Medical History - Social History Smoking Status: Former Smoker Chew tobacco use (# tins/day): No Frequency of alcohol use: None Drug Abuse: None Family History: CAD, Hyperlipidemia, Hypertension Patient has suicidal ideation: No Patient has homicidal ideation: No - Past Medical History Cardiac Medical History: Reports: Hx Atrial Fibrillation, Hx Hypertension Pulmonary Medical History: Reports: Hx COPD Endocrine Medical History: Reports: Hx Hypothyroidism Renal/ Medical History: Reports: Hx Benign Prostatic Hyperplasia. Denies: Hx Peritoneal Dialysis GI Medical History: Reports: Hx Colonoscopy, Hx Endoscopy Musculoskeletal Medical History: Reports Hx Arthritis, Reports Hx Gout, Reports Hx Musculoskeletal Deformity, Reports Hx Musculoskeletal Trauma Traumatic Medical History: Reports: Hx Fractures - Foot Past Surgical History: Reports: Hx Abdominal Surgery - Hernia Repair, Hx Appendectomy, Hx Cardiac Surgery - aortic vavle replacement., Hx Inguinal Hernia, Hx Orthopedic Surgery - R foot, Hx Tonsillectomy - Immunizations Hx Diphtheria, Pertussis, Tetanus Vaccination: Yes Hx Pneumococcal Vaccination: 05/20/06 Physical Exam - Vital signs Vitals: Temp Pulse Resp BP Pulse Ox 97.6 F 56 L 18 158/55 H 98 06/07/18 13:11 06/07/18 13:11 06/07/18 13:11 06/07/18 13:11 06/07/18 13:11 Course - Re-evaluation Re-evalutation: Patient seen and examined, vital signs reviewed, patient appears well on my exam, he did have tenderness over the left trochanteric bursa, will treat him with Depo-Medrol IM injection, advised warm or cool compresses, and Tylenol for pain control. His x-rays were reviewed and were negative for any acute fracture or bony injury, I personally reviewed them myself as well. Advised him if his symptoms are not much improving that he could either return to the emergency department, or follow-up with orthopedic surgery which she was agreeable to. Avoiding NSAIDs in this patient, as he has a history of chronic kidney disease. - Vital Signs Vital signs: Temp Pulse Resp BP Pulse Ox 97.6 F 56 L 18 158/55 H 98 06/07/18 13:11 06/07/18 13:11 06/07/18 13:11 06/07/18 13:11 06/07/18 13:11 Discharge - Discharge Clinical Impression: Left hip pain Condition: Stable Disposition: HOME, SELF-CARE Instructions: Bursitis ([facility]) Additional Instructions: Please take Tylenol 1000 mg every 8 hours at home for pain, and use a warm or cool compress for 20 minutes on and 20 minutes off to help alleviate some pain, continue to use your walker, and follow-up with orthopedic surgery if your symptoms are not improving over the next several days, as you may need physical therapy. Referrals: Morris CHRISTIANSON MD [Primary Care Provider] - Follow up as needed MENA ALLEN MD [ACTIVE STAFF] - Follow up in 3-5 days
[2018-06-07 15:51] VITALS: BP 179/67
== END 2018-06-07 15:36 | disposition home or self-care (01) ==
LOC: ER 12:52
DX: M25.552 Pain in left hip (principal); W01.0XXA Fall on same level from slipping, tripping and stumbling without subsequent striking against object, initial encounter; Z87.891 Personal history of nicotine dependence; I10 Essential (primary) hypertension; J44.9 Chronic obstructive pulmonary disease, unspecified
CPT/HCPCS: 99283; 96372; 73502; A9270; J1020

== ENCOUNTER → 2018-06-20 | Outpatient (CLI) | payer MEDICARE ==
[2018-06-20 15:03] LABS: ABSOLUTE BASOPHILS # (AUTO) 0.1 10^3/uL (0.0-0.2); ABSOLUTE EOSINOPHILS # (AUTO) 0.1 10^3/uL (0.0-0.6); ABSOLUTE LYMPHOCYTES (AUTO) 1.7 10^3/uL (0.5-4.7); ABSOLUTE MONOCYTES (AUTO) 0.6 10^3/uL (0.1-1.4); ABSOLUTE NEUT (AUTO) 9.4 10^3/uL (1.7-8.2); APPEARANCE,URINE SLIGHTLY-CLOUDY; BASOPHILS % (AUTO) 1.2 % (0-2); BILIRUBIN,URINE NEGATIVE (NEGATIVE); COLOR,URINE YELLOW; EOSINOPHILS % (AUTO) 0.5 % (0-6); GLUCOSE, URINE NEGATIVE (NEGATIVE); HEMATOCRIT 31.8 % (37.9-51.0); HEMOGLOBIN 10.8 g/dL (13.5-17.0); KETONES,URINE NEGATIVE (NEGATIVE); LEUKOCYTE ESTERASE,URINE NEGATIVE (NEGATIVE); LYMPHOCYTES % (AUTO) 14.1 % (13-45); MEAN CORPUSCULAR HEMOGLOBIN 33.2 pg (27.0-33.4); MEAN CORPUSCULAR HGB CONC 33.9 g/dL (32.0-36.0); MEAN CORPUSCULAR VOLUME 98 fl (80-97); MONOCYTES % (AUTO) 4.9 % (3-13); NITRITE,URINE NEGATIVE (NEGATIVE); PLATELET COUNT 214 10^3/uL (150-450); PROTEIN,URINE 100 mg/dL (NEGATIVE); RED BLOOD COUNT 3.24 10^6/uL (4.35-5.55); RED CELL DISTRIBUTION WIDTH 19.4 % (11.5-14.0); SEGMENTED NEUTROPHILS % (AUTO) 79.3 % (42-78); TOTAL CELLS COUNTED % (AUTO) 100 %; URINE SPECIFIC GRAVITY 1.017; UROBILINOGEN,URINE NEGATIVE mg/dL (<2.0); WHITE BLOOD COUNT 11.9 10^3/uL (4.0-10.5)
[2018-06-20 15:18] LABS: ANION GAP 9 (5-19); BLOOD UREA NITROGEN 45 mg/dL (7-20); CALCIUM 9.6 mg/dL (8.4-10.2); CARBON DIOXIDE 25 mmol/L (22-30); CHLORIDE 109 mmol/L (98-107); GLUCOSE 120 mg/dL (75-110); PHOSPHORUS 3.2 mg/dL (2.5-4.5); POTASSIUM 5.2 mmol/L (3.6-5.0); SODIUM 143.1 mmol/L (137-145)
== END ==
LOC: OD 14:22
PROVIDERS: ATTEND Internal Medicine Nephrology
DX: I13.0 Hypertensive heart and chronic kidney disease with heart failure and stage 1 through stage 4 chronic kidney disease, or unspecified chronic kidney disease (principal); N18.3 Chronic kidney disease, stage 3 (moderate); I50.9 Heart failure, unspecified; E87.5 Hyperkalemia
CPT/HCPCS: 36415; 80048; 81001; 83970; 84100; 85025

== ENCOUNTER 2018-07-09 20:23 | Inpatient (IN) | payer MEDICARE ==
--- NOTE | 2018-07-09 20:31 | ER Document Report ---
ED Neuro Symptoms/Deficit - General Chief Complaint: Weakness Stated Complaint: STROKE SYMPTOMS Time Seen by Provider: 07/09/18 20:30 Primary Care Provider: Morris CHRISTIANSON MD [Primary Care Provider] - Follow up as needed Mode of Arrival: Medic Information source: Patient, Emergency Med Personnel Notes: HISTORY OF PRESENT ILLNESS: Patient is a 87-year-old male with a past medical history of atrial fibrillation not currently anticoagulated, diabetes, hypertension, and multiple other chronic conditions who presents with acute difficulty speaking with left-sided weakness starting at approximately 1930 p.m. Symptoms had already improved by the time the patient arrived in the emergency department by EMS. Patient denies confusion or weakness, no head injuries, no vision changes, no chest pain or shortness of breath, no fevers or chills. Location: Left-sided Onset: Sudden at approximately 1930, now improving Provocation: Unknown Quality: "Weak" Radiation: None Severity: Mild to moderate Timing: Improving and nearly resolved REVIEW OF SYSTEMS: CONSTITUTIONAL : Denies fever or chills, no sweats. Denies recent illness. EENT: Denies eye, ear, throat, or mouth pain or symptoms. Denies nasal or sinus congestion. CARDIOVASCULAR: Denies chest pain. RESPIRATORY: Denies cough, cold, or chest congestion. Denies shortness of breath, difficulty breathing, or wheezing. GASTROINTESTINAL: Denies abdominal pain. Denies nausea, vomiting, or diarrhea. Denies constipation. GENITOURINARY: Denies difficulty urinating, painful urination, burning, freque ncy, or blood in urine. MUSCULOSKELETAL: Denies neck or back pain or joint pain or swelling. SKIN: Denies rash or skin lesions. HEMATOLOGIC : Denies easy bruising or bleeding. LYMPHATIC: Denies swollen, enlarged glands. NEUROLOGICAL: Positive for left-sided weakness. Denies altered mental status or loss of consciousness. Denies headache. Denies problems with gait. Denies sensory loss. PSYCHIATRIC: Denies anxiety or stress or depression. All other systems reviewed and negative. PHYSICAL EXAMINATION: GENERAL: Well-appearing, well-nourished and in no acute distress. HEAD: Atraumatic, normocephalic. No scalp deformity, depression, or crepitance. EYES: Pupils are 2mm and equal/round/reactive to light, extraocular movements intact, sclera anicteric, conjunctiva are normal. ENT: Nares patent bilaterally, oropharynx clear without exudates or palatal petechia. Moist mucous membranes. No tonsil hypertrophy. NECK: Normal range of motion, supple without lymphadenopathy. LUNGS: Breath sounds present, equal, and clear to auscultation bilaterally. No wheezes, rales, or rhonchi. HEART: Regular rate, irregularly irregular rhythm. No murmurs, rubs, or gallops. 2+ peripheral pulses. Normal capillary refill. ABDOMEN: Soft, nontender, nondistended. Normoactive bowel sounds. No guarding, no rebound. No masses appreciated. BACK: Normal contour, no midline tenderness. Rectal exam deferred. GENITAL: Deferred. EXTREMITIES: Normal range of motion, no pitting or edema. No cyanosis. NEUROLOGICAL: No focal neurological deficits. Moves all extremities spontaneously and on command. Face is symmetric, tongue is midline, equal 5/5 strength in bilateral upper and lower extremities, no pronator drift. NIH stroke score of 1 for slight left lower extremity touchdown before 10 seconds was up. PSYCH: Normal mood, normal affect. No suicidal thoughts/ideations. No homocidal thoughts/ideations. No hallucinations. SKIN: Warm, dry, normal turgor, no rashes or lesions noted. ASSESSMENT AND PLAN: This patient is a 87-year-old male who presents with acute left-sided weakness now improving that could be TIA versus stroke versus UTI. 1. Will obtain code stroke labs and admit to the hospital. 2. 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 TRAVEL OUTSIDE OF THE [place] IN LAST 30 DAYS: No - Related Data Allergies/Adverse Reactions: No Known Allergies Allergy (Unverified 11/16/15 22:22) Past Medical History - General Information source: Patient, Emergency Med Personnel - Social History Smoking Status: Former Smoker Chew tobacco use (# tins/day): No Frequency of alcohol use: None Drug Abuse: None Lives with: Family Family History: CAD, Hyperlipidemia, Hypertension - Past Medical History Cardiac Medical History: Reports: Hx Atrial Fibrillation, Hx Hypertension Pulmonary Medical History: Reports: Hx COPD EENT Medical History: Reports: None Neurological Medical History: Reports: None Endocrine Medical History: Reports: Hx Hypothyroidism Renal/ Medical History: Reports: Hx Benign Prostatic Hyperplasia. Denies: Hx Peritoneal Dialysis Malignancy Medical History: Reports None GI Medical History: Reports: Hx Colonoscopy, Hx Endoscopy Musculoskeletal Medical History: Reports Hx Arthritis, Reports Hx Gout, Reports Hx Musculoskeletal Deformity, Reports Hx Musculoskeletal Trauma Skin Medical History: Reports None Psychiatric Medical History: Reports: None Traumatic Medical History: Reports: Hx Fractures - Foot Infectious Medical History: Reports: None Past Surgical History: Reports: Hx Abdominal Surgery - Hernia Repair, Hx Appendectomy, Hx Cardiac Surgery - aortic vavle replacement., Hx Inguinal Hernia, Hx Orthopedic Surgery - R foot, Hx Tonsillectomy - Immunizations Immunizations up to date: Yes Hx Diphtheria, Pertussis, Tetanus Vaccination: Yes History of Influenza Vaccine for 02/2017 - 07/2017 Season: Yes Hx Pneumococcal Vaccination: 05/20/06 Course - Re-evaluation Re-evalutation: 07/10/18 00:48 CT head official read is still pending but preliminary does not show acute infarct. Labs are remarkable for chronic renal failure and mildly elevated troponin. He will be admitted to the hospitalist. - Laboratory Result Diagrams: 07/09/18 20:48 07/09/18 20:48 - Diagnostic Test Radiology reviewed: Image reviewed, Reports reviewed - EKG Interpretation by Me EKG shows normal: Sinus rhythm Rate: Normal Rhythm: NSR Hutchinson/QRS: No: Right axis deviation, Left axis deviation, RBBB, LBBB, IVCD, LAHB/LAFB, LPHB/LPFB, Bifasicular block Voltage: No: Increased voltage, Consistant with LVH, Decreased voltage, Thro ughout, Limb leads P Waves: No: JASMINE, LAE, Absent, AV Dissociation, Other Heart block present: No: 1st Degree, Mobitz 1, Mobitz 2, CHB (3rd degree block) When compared to previous EKG there are: Previous EKG unavailable - Consults Dr. Peña Time consulted: 01:39 - will admit Consulted provider: will come to ER ED NIH Stroke Scale - NIH Stroke Scale *: 1. NIH scale should be completed with appropriate accompanying assessment tools. *: 2. The NIH should reflect what the patient is capable of doing and should not be coached by the clinician. 1a. Level of Consciousness: 0=Alert;keenly responsive -: 1=Drowsy -: 2=Obtunded -: 3=Coma/unresponsive or reflex to noxious stimuli. 1a. Responses: 0 1b. Orientation Questions: a. What month is it? -: b. How old are you? -: 0=Answers both questions correctly. -: 1=Answers one question correctly or patient is intubated or has orotracheal trauma. -: 2=Answers neither question correctly. 1b. Responses: 0 1c. Response to commands: a. Open and close eyes? -: b. Vo[employer] Network Technician and release hand? -: Credit is given despite weakness. Demonstration of task is permitted. Substitute command if hands cannot be used. -: 0=Performs both tasks correctly -: 1=Performs one task correctly -: 2=Performs neither task correctly 1c. Responses: 0 2. Gaze: Establish eye contact and instruct patient to "Follow my finger" -: 0=Normal -: 1=Partial gaze palsy. Gaze is abnormal in one or both eyes, but where forced deviation or total gaze paresis is not present. -: 2=Forced deviation or total gaze paresis. 2. Responses: 0 3. Visual Kwan: Sees fingers in all four quadrants. -: 0=No visual loss. -: 1=Partial hemianopsia. -: 2=Complete hemianopsia. -: 3=Bilateral hemianopsia (including Cortical blindness) 3. Responses: 0 4. Facial Movement: Instruct patient to: -: a. Show me your teeth -: b. Raise your eyebrows -: c. Close your eyes -: d. Smile -: 0=Normal symmetrical movement -: 1=Minor paralysis (flattened nasolabial fold, asymmetry on smiling). -: 2=Partial paralysis (total or near total paralysis of lower face). -: 3=Complete paralysis of upper and lower face 4. Responses: 0 5. Motor functions (left arm): Alternate sides and extend each arm with palms down (90 degrees if sitting or 45 degrees for supine). -: 0=No drift;limb holds for full 10 seconds. -: 1=Drift; limb holds but drifts down before full 10 seconds, but does not hit bed. -: 2=Some effort against gravity; limb cannot get to or maintain position. -: 3=No effort against gravity; limb falls. -: 4=No movement. -: UN=Amputation, joint fusion, explain in comments. 5. Responses (left arm): 0 5. Motor Functions (right arm): Alternate sides and extend each arm with palms down (90 degrees if sitting or 45 degrees for supine). -: 0=No drift;limb holds for full 10 seconds. -: 1=Drift; limb holds but drifts down before full 10 seconds, but does not hit bed. -: 2=Some effort against gravity; limb cannot get to or maintain position. -: 3=No effort against gravity; limb falls. -: 4=No movement. -: UN=Amputation, joint fusion, explain in comments. 5. Responses (right arm): 0 6. Motor Functions (left leg): With patient lying supine, alternate sides and extend each leg (30 degrees always while supine). -: 0=No drift, leg holds position for full 5 seconds -: 1=Drift; leg falls before full 5 seconds but does not hit bed. -: 2=Some effort against gravity, leg falls to bed but some effort against gravity. -: 3=No effort against gravity, leg falls to bed immediately. -: 4=No movement. -: UN=Amputation, joint fusion; explain in comments. 6. Responses (left leg): 1 6. Motor Functions (right leg): With patient lying supine, alternate sides and extend each leg (30 degrees always while supine). -: 0=No drift, leg holds position for full 5 seconds -: 1=Drift; leg falls before full 5 seconds but does not hit bed. -: 2=Some effort against gravity, leg falls to bed but some effort against gravity. -: 3=No effort against gravity, leg falls to bed immediately. -: 4=No movement. -: UN=Amputation, joint fusion; explain in comments. 6. Responses (right leg): 0 7. Limb Ataxia: With eyes open instruct patient to: -: a. "Touch your finger to your nose". -: b. "Touch your heel to your teague" -: 0=Absent -: 1=Present in one limb. -: 2=Present in two limbs. -: UN=Amputation or joint fusion; explain in comments. 7. Responses: 0 8. Sensory: Test sensation using pinprick or noxious stimuli. Test as many body parts as possible. -: 0=Normal;no sensory loss -: 1=Mile to moderate sensory loss (patient feels pin prick but is less sharp on affected side). -: 2=Severe or total sensory loss. 8. Responses: 0 9. Best Language: Instruct patient to: -: a. "Describe what you see in this picture." -: b. "Name the items in this picture." -: c. "Read these sentences." -: 0=No aphasia, normal -: 1=Mild to moderate aphasia. -: 2=Severe aphasia -: 3=Mute, global aphasia, no usable speech or auditory comprehension. 9. Responses: 0 10. Articulation, Dysarthia: Instruct patient to: -: "Read these words" or "Repeat these words" -: 0=Normal -: 1=Mild to moderate; patient may slur some words but can be understood without difficulty. -: 2=Severe; patients speech so slurred as to be unintelligible in the absence of dysphasia. -: UN=Intubated or other physical barrier, explain in comments. 10. Responses: 0 11. Extinction or inattention: 0=No abnormality -: 1= Visual, tactile, auditory, spatial, or personal inattention or extinction to bilateral simulation in one or the sensory modalities. -: 2=Profound wilfredo-inattention or wilfredo-inattention to more than one modality; does not recognize own hand. 11. Responses: 0 Total Score: 1 Discharge - Discharge Clinical Impression: Transient ischemic attack (TIA) Condition: Stable Disposition: ADMITTED INPATIENT Admitting Provider: Hospitalist Unit Admitted: Medical Floor Referrals: Morris CHRISTIANSON MD [Primary Care Provider] - Follow up as needed
--- NOTE | 2018-07-09 20:58 | RADIOLOGY REPORT (SQ) ---
EXAM DESCRIPTION: XR CHEST 1 VIEW COMPLETED DATE/TME: 07/09/2018 00:00 CLINICAL HISTORY: 87 years, Male, STROKE SX COMPARISON: 09/05/2017 chest NUMBER OF VIEWS: 1 TECHNIQUE: Portable chest LIMITATIONS: None. FINDINGS: Heart size is normal. Elevation of the right hemidiaphragm. Mild atheromatous change thoracic aorta. Lungs are clear. No pneumothorax IMPRESSION: No acute cardiopulmonary process copyright 2010 [facility]- All Rights Reserved
[2018-07-09 21:52] LABS: ABSOLUTE BASOPHILS # (AUTO) 0.1 10^3/uL (0.0-0.2); ABSOLUTE EOSINOPHILS # (AUTO) 0.1 10^3/uL (0.0-0.6); ABSOLUTE LYMPHOCYTES (AUTO) 1.8 10^3/uL (0.5-4.7); ABSOLUTE MONOCYTES (AUTO) 0.5 10^3/uL (0.1-1.4); ABSOLUTE NEUT (AUTO) 5.9 10^3/uL (1.7-8.2); BASOPHILS % (AUTO) 1.6 % (0-2); EOSINOPHILS % (AUTO) 1.2 % (0-6); HEMATOCRIT 29.2 % (37.9-51.0); LYMPHOCYTES % (AUTO) 21.4 % (13-45); MEAN CORPUSCULAR HEMOGLOBIN 34.7 pg (27.0-33.4); MEAN CORPUSCULAR HGB CONC 34.3 g/dL (32.0-36.0); MEAN CORPUSCULAR VOLUME 101 fl (80-97); PLATELET COUNT 209 10^3/uL (150-450); RED BLOOD COUNT 2.89 10^6/uL (4.35-5.55); RED CELL DISTRIBUTION WIDTH 20.4 % (11.5-14.0); SEGMENTED NEUTROPHILS % (AUTO) 69.8 % (42-78); TOTAL CELLS COUNTED % (AUTO) 100 %; WHITE BLOOD COUNT 8.5 10^3/uL (4.0-10.5)
[2018-07-09 21:56] LABS: PROTHROMBIN TIME 13.7 SEC (11.4-15.4)
[2018-07-09 21:57] LABS: ALANINE AMINOTRANSFERASE 24 U/L (21-72); ALBUMIN 4.3 g/dL (3.5-5.0); ALKALINE PHOSPHATASE 81 U/L (38-126); ANION GAP 8 (5-19); ASPARTATE AMINO TRANSFERASE 47 U/L (17-59); BILIRUBIN,DIRECT 0.3 mg/dL (0.0-0.4); BILIRUBIN,TOTAL 0.8 mg/dL (0.2-1.3); BLOOD UREA NITROGEN 30 mg/dL (7-20); CALCIUM 9.1 mg/dL (8.4-10.2); CARBON DIOXIDE 27 mmol/L (22-30); CHLORIDE 106 mmol/L (98-107); CREATINE KINASE 180 U/L (55-170); GLUCOSE 86 mg/dL (75-110); PARTIAL THROMBOPLASTIN TIME 31.9 SEC (23.5-35.8); POTASSIUM 5.1 mmol/L (3.6-5.0); TOTAL PROTEIN 7.4 g/dL (6.3-8.2)
[2018-07-09 22:00] LABS: ALCOHOL < 10 mg/dL (NONE DETECTED)
[2018-07-09 22:13] LABS: TROPONIN I 0.078 ng/mL
[2018-07-09 22:13] LABS: APPEARANCE,URINE CLEAR; BILIRUBIN,URINE NEGATIVE (NEGATIVE); COLOR,URINE YELLOW; GLUCOSE, URINE NEGATIVE (NEGATIVE); KETONES,URINE NEGATIVE (NEGATIVE); LEUKOCYTE ESTERASE,URINE NEGATIVE (NEGATIVE); NITRITE,URINE NEGATIVE (NEGATIVE); PROTEIN,URINE 30 mg/dL (NEGATIVE); URINE SPECIFIC GRAVITY 1.008; UROBILINOGEN,URINE NEGATIVE mg/dL (<2.0)
[2018-07-10] MEDS ORDERED: ONDANSETRON HCL INJ/PF 4 MG/2 ML SDV IV PRN (02:00)
[2018-07-10] MEDS ORDERED: MAGNESIUM HYDROXIDE SUSP 30 ML UDCUP PO PRN (02:00)
[2018-07-10] MEDS ORDERED: MAG HYDROX/AL HYDROX/SIMETH SUSP 30 ML UDCUP PO PRN (02:00)
[2018-07-10] MEDS ORDERED: ONDANSETRON 4 MG TAB.RAPDIS PO PRN (02:00)
[2018-07-10] MEDS ORDERED: ALBUTEROL SULFATE HFA (90 MCG/PUFF) 200 PUFF/8.5 GM MDI IH PRN (02:06)
[2018-07-10] MEDS: HEPARIN SOD (PORCINE) 5,000 UNIT/ML 1 ML SYRINGE SUBCUT SCH ×3 (05:25→22:06)
[2018-07-10] MEDS: HYDROCODONE/ACETAMINOPHEN 5-325 MG TABLET PO SCH ×3 (05:26→17:36)
[2018-07-10 05:29] LABS: CHOLESTEROL 148.49 mg/dL (0-200); TRIGLYCERIDES 65 mg/dL (<150)
[2018-07-10 05:39] LABS: DIRECT LDL 73 mg/dL (<100)
--- NOTE | 2018-07-10 06:14 | PDOC H&P ---
History of Present Illness Admission Date/PCP: 07/10/18 02:02 Morris CHRISTIANSON MD Patient complains of: Left-sided weakness with dysphasia History of Present Illness: IOANA FELICIANO is a 87 year old male who presented to the emergency room with a history of left-sided weakness and dysphasia beginning at 7:30 PM on the day prior to admission. Patient acknowledges that he had sudden onset of moderate weakness of his left arm and leg as well as mild facial drooping and moderate difficulty with his speech in that he could not express the word or words he wis hed to say correctly and as such was demonstrating severe stuttering or was just not able to complete sentences. He denies feeling as though he were confused as he knew exactly what he wanted to say and he understood exactly what was being said to him. He denies any other accompanying symptoms and had not experienced a loss of consciousness or recent head injury. The patient admits that his sym ptoms resolved gradually beginning approximately 15 minutes after onset and within an hour of the onset they had resolved completely. He denies prior similar symptoms and has not identified any aggravating or ameliorating factors for his acute weakness and dysphasia. He admits a history of chronic atrial fibrillation and he was recently taken off anticoagulant medications due to his age and risk factors. In the emergency room he was found to have a negative CT scan of the head but due to his chronic renal failure he did have a slightly elevated troponin I and as such emergency room doctor wanted to have him stay for serial cardiac enzymes to rule out a potential silent myocardial infarction despite the patient's normal EKG and unchanged level of troponin on repeat evaluation. Past Medical History Cardiac Medical History: Reports: Atrial Fibrillation, Hypertension Pulmonary Medical History: Reports: Chronic Obstructive Pulmonary Disease (COPD) Denies: Asthma EENT Medical History: Reports: None Neurological Medical History: Denies: Hemorrhagic CVA, Ischemic CVA, Seizures Endocrine Medical History: Reports: Hypothyroidism Denies: Diabetes Mellitus Type 1, Diabetes Mellitus Type 2, Hyperthyroidism Renal/ Medical History: Reports: Chronic Kidney Disease Denies: Nephrolithiasis Malignancy Medical History: Reports: None GI Medical History: Denies: Cirrhosis, Hepatitis Musculoskeltal Medical History: Reports: Arthritis, Gout Skin Medical History: Reports: None Psychiatric Medical History: 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 Denies: Alcohol Dependency, Substance Abuse Traumatic Medical History: Reports: None Hematology: Reports: Anemia - Chronic due to kidney disease, Bleeding Tendencies - Had had bleeding tendencies when taking anticoagulants Infectious Medical History: Reports: None Past Surgical History Past Surgical History: Reports: Appendectomy, Orthopedic Surgery - R foot, Tonsillectomy Social History Information Source: Patient Lives with: Family Smoking Status: Former Smoker Frequency of Alcohol Use: Rare Hx Recreational Drug Use: No Drugs: None Hx Prescription Drug Abuse: No - Advance Directive Resuscitation Status: Full Code Surrogate healthcare decision maker:: Spouse Family History Family History: CAD, Hyperlipidemia, Hypertension, Malignancy Parental Family History Reviewed: Yes Children Family History Reviewed: No Sibling(s) Family History Reviewed.: Yes Medication/Allergy Home Medications: Albuterol Sulfate [Proair HFA Inhalation Aerosol 8.5 gm MDI] 1 puff IH Q4 PRN 11/17/15 Allopurinol [Zyloprim 100 mg Tablet] 200 mg PO DAILY 07/10/18 Aspirin [Aspirin 81 mg Chewable Tablet] 1 tab PO DAILY 07/10/18 Calcitriol [Rocaltrol 0.25 mcg Capsule] 0.25 mcg PO ASDIR 07/10/18 Clonidine HCl [Catapres 0.1 mg Tablet] 0.1 mg PO QPM 07/10/18 Colchicine 1 cap PO ASDIR PRN 07/10/18 Furosemide [Lasix 40 mg Tablet] 40 mg PO QAM 07/10/18 Levothyroxine Sodium [Synthroid 0.075 mg Tablet] 1 tab PO DAILY 07/10/18 Multivitamin/Iron/Folic Acid [Centrum Complete Multivit Tab] 1 tab PO DAILY 07/10/18 Tamsulosin HCl [Flomax 0.4 mg Cap.sr] 0.4 mg PO QPM 07/10/18 Telmisartan 20 mg PO DAILY 07/10/18 Vitamin B Complex/Folic Acid [B-Complex Tablet] 1 tab PO DAILY 07/10/18 Allergies/Adverse Reactions: No Known Allergies Allergy (Unverified 11/16/15 22:22) Review of Systems Constitutional: ABSENT: chills, fever(s), headache(s) Eyes: ABSENT: visual disturbances, other - Eye pain Ears: ABSENT: hearing changes, other - Ear pain Nose, Mouth, and Throat: ABSENT: mouth pain, sore throat Cardiovascular: ABSENT: chest pain, palpitations Respiratory: ABSENT: cough, dyspnea Gastrointestinal: ABSENT: abdominal pain, constipation, diarrhea, nausea, vomiting Genitourinary: ABSENT: dysuria, hematuria Musculoskeletal: ABSENT: deformity, joint swelling Integumentary: ABSENT: pruritus, rash Neurological: PRESENT: as per HPI, abnormal speech, focal weakness. ABSENT: confusion, convulsions, memory loss, numbness, syncope, tremor(s), vertigo Psychiatric: ABSENT: anxiety, depression Endocrine: ABSENT: cold intolerance, heat intolerance Hematologic/Lymphatic: ABSENT: easy bleeding, easy bruising Physical Exam Vital Signs: Temp Pulse Resp BP Pulse Ox 97.9 F 71 13 166/73 H 97 07/09/18 21:17 07/09/18 23:32 07/10/18 01:31 07/10/18 01:31 07/10/18 01:31 Intake & Output 07/08/18 07/09/18 07/10/18 23:59 23:59 23:59 Output Total 250 Balance -250 Weight 82.1 kg General appearance: PRESENT: no acute distress, cooperative Head exam: PRESENT: atraumatic, normocephalic Eye exam: PRESENT: conjunctiva pink, EOMI. ABSENT: scleral icterus Ear exam: PRESENT: TM's normal bilaterally. ABSENT: bleeding, drainage Mouth exam: PRESENT: dry mucosa, neck supple Neck exam: ABSENT: thyromegaly, tracheal deviation Respiratory exam: PRESENT: clear to auscultation mook, symmetrical, unlabored Cardiovascular exam: PRESENT: RRR. ABSENT: clicks, gallop, rubs Pulses: PRESENT: normal radial pulses, normal dorsalis pedis pul Vascular exam: PRESENT: normal capillary refill. ABSENT: pallor GI/Abdominal exam: PRESENT: normal bowel sounds, soft Rectal exam: PRESENT: deferred Extremities exam: ABSENT: joint swelling, pedal edema Musculoskeletal exam: PRESENT: full ROM, normal inspection. ABSENT: tenderness Neurological exam: PRESENT: alert, awake, oriented to person, oriented to place, oriented to time, oriented to situation, CN II-XII grossly intact. ABSENT: motor sensory deficit Psychiatric exam: PRESENT: appropriate affect, normal mood Skin exam: PRESENT: dry, intact, warm. ABSENT: jaundice, rash, urticaria Results Laboratory Results: 07/09/18 20:48 07/09/18 20:48 07/09/18 07/09/18 07/09/18 20:48 20:48 21:58 WBC 8.5 RBC 2.89 L Hgb 10.0 L Hct 29.2 L MCV 101 H MCH 34.7 H MCHC 34.3 RDW 20.4 H Plt Count 209 Seg Neutrophils % 69.8 Lymphocytes % 21.4 Monocytes % 6.0 Eosinophils % 1.2 Basophils % 1.6 Absolute Neutrophils 5.9 Absolute Lymphocytes 1.8 Absolute Monocytes 0.5 Absolute Eosinophils 0.1 Absolute Basophils 0.1 Sodium 141.0 Potassium 5.1 H Chloride 106 Carbon Dioxide 27 Anion Gap 8 BUN 30 H Creatinine 2.38 H Est GFR ( Amer) 31 L Est GFR (Non-Af Amer) 26 L Glucose 86 Lactic Acid 0.6 L Calcium 9.1 Total Bilirubin 0.8 AST 47 ALT 24 Alkaline Phosphatase 81 Total Protein 7.4 Albumin 4.3 Urine Color Urine Appearance Urine pH Ur Specific Fowler Urine Protein Urine Glucose (UA) Urine Ketones Urine Blood Urine Nitrite Ur Leukocyte Esterase Urine WBC (Auto) Urine RBC (Auto) 07/09/18 21:58 WBC RBC Hgb Hct MCV MCH MCHC RDW Plt Count Seg Neutrophils % Lymphocytes % Monocytes % Eosinophils % Basophils % Absolute Neutrophils Absolute Lymphocytes Absolute Monocytes Absolute Eosinophils Absolute Basophils Sodium Potassium Chloride Carbon Dioxide Anion Gap BUN Creatinine Est GFR ( Amer) Est GFR (Non-Af Amer) Glucose Lactic Acid Calcium Total Bilirubin AST ALT Alkaline Phosphatase Total Protein Albumin Urine Color YELLOW Urine Appearance CLEAR Urine pH 7.0 Ur Specific Fowler 1.008 Urine Protein 30 H Urine Glucose (UA) NEGATIVE Urine Ketones NEGATIVE Urine Blood NEGATIVE Urine Nitrite NEGATIVE Ur Leukocyte Esterase NEGATIVE Urine WBC (Auto) 0 Urine RBC (Auto) 0 07/09/18 07/09/18 20:48 20:48 Creatine Kinase 180 H Troponin I 0.078 NT-Pro-B Natriuret Pep 218 Impressions: Chest X-Ray 07/09/18 00:00 IMPRESSION: No acute cardiopulmonary process copyright 2010 [employer]- All Rights Reserved Assessment & Plan - Diagnosis (1) Transient ischemic attack (TIA) Is this a current diagnosis for this admission?: Yes Plan: Patient's attack is resolved and as such he will be observed on inpatient observation status with neuro checks and vital signs recorded frequently. He will be continued on his current medication for prevention of embolic stroke and will not be started back on anticoagulants as his risk on them would still be greater than his chance of developing a stroke. (2) CKD (chronic kidney disease), stage III Is this a current diagnosis for this admission?: Yes Plan: Patient's chronic kidney disease will be considered in any therapeutic decision made or investigation performed. (3) Hypothyroid Qualifiers: Hypothyroidism type: unspecified Qualified Code(s): E03.9 - Hypothyroidism, unspecified Is this a current diagnosis for this admission?: Yes Plan: Patient will be continued on his current dose of thyroid replacement and a thyroid profile will be obtained to evaluate efficacy of therapy. (4) Atrial fibrillation Qualifiers: Atrial fibrillation type: chronic Qualified Code(s): I48.2 - Chronic atrial fibrillation Is this a current diagnosis for this admission?: Yes Plan: Patient be continued on his current cardiac regiment for control of his atrial fibrillation rate and rhythm. - Time Time Spent: 30 to 50 Minutes Critical Time spent with patient: Less than 15 minutes Medications reviewed and adjusted accordingly: Yes Anticipated discharge: Home - Inpatient Certification Based on my medical assessment, after consideration of the patient's comorbidities, presenting symptoms, or acuity I expect that the services needed warrant INPATIENT care.: No I certify that my determination is in accordance with my understanding of Medicare's requirements for reasonable and necessary INPATIENT services [42 CFR 412.3e].: No Medical Necessity: Need Close Monitoring Due to Risk of Patient Decompensation, Need For Continuous Telemetry Monitoring, Need for Neurological Checks
[2018-07-10 06:45] LABS: FREE T3 3.43 pg/mL (2.77-5.27); FREE T4 (FREE THYROXINE) 0.84 ng/dL (0.78-2.19)
[2018-07-10 06:59] LABS: THYROID STIMULATING HORMONE 13.6 uIU/mL (0.47-4.68)
--- NOTE | 2018-07-10 07:42 | EKG REPORT ---
SEVERITY:- ABNORMAL ECG - SINUS RHYTHM FIRST DEGREE AV BLOCK PROBABLE LEFT ATRIAL ABNORMALITY LVH WITH SECONDARY REPOLARIZATION ABNORMALITY ANTERIOR INFARCT, OLD : Confirmed by: Espinoza Lo MD 10-Jul-2018 07:41:41
--- NOTE | 2018-07-10 08:26 | RADIOLOGY REPORT (SQ) ---
EXAM DESCRIPTION: CT HEAD WITHOUT COMPLETED DATE/TIME: 07/09/2018 8:37 pm REASON FOR STUDY: STROKE SYMPTOMS, LEFT SIDE WEAKNESS COMPARISON: CT brain 12/10/2007 TECHNIQUE: Axial images acquired through the brain without intravenous contrast. Images reviewed wi th bone, brain and subdural windows. Additional sagittal and coronal reconstructions were generated. Images stored on PACS. All CT scanners at this facility use dose modulation, iterative reconstruction, and/or weight based d osing when appropriate to reduce radiation dose to as low as reasonably achievable (ALARA). [facility]: Dose Right [facility]: CareDose [facility]: Dose Right [facility]: Teradose 4D [facility]: ChorPpay RADIATION DOSE: 53 mGy. LIMITATIONS: None. FINDINGS: VENTRICLES: Normal size and contour. CEREBRUM: No masses. No hemorrhage. No midline shift. No evidence for acute infarction. Diffuse lo w attenuation from small vessel ischemic change throughout the bifrontal and biparietal white matter. Old lacunar infarcts in the bilateral basal ganglia. CEREBELLUM: No masses. No hemorrhage. No alteration of density. No evidence for acute infarction. EXTRAAXIAL SPACES: No fluid collections. No masses. ORBITS AND GLOBE: No intra- or extraconal masses. Normal contour of globe without masses. CALVARIUM: No fracture. PARANASAL SINUSES: No fluid or mucosal thickening. SOFT TISSUES: No mass or hematoma. OTHER: No other significant finding. 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 EVIDENCE OF ACUTE STROKE: NO. COMMENT: Quality ID # [id number]: Final reports with documentation of one or more dose reduction techniques (e.g., Automated exposure control, adjustment of the mA and/or kV according to patient size, use of iterative reconstruction technique) TECHNICAL DOCUMENTATION: JOB ID: [id number] [employer]- All Rights Reserved Reading location - IP/workstation name: MANAGER CRITICAL CARE UNITFORMERLY [email or web address]
--- NOTE | 2018-07-10 09:27 | RADIOLOGY REPORT (SQ) ---
EXAM DESCRIPTION: MRI HEAD WITHOUT; MRA HEAD WITHOUT COMPLETED DATE/TIME: 07/10/2018 9:06 am; 07/10/2018 9:07 am REASON FOR STUDY: TIA difficulty speaking, slurred speech, left-sided weakness COMPARISON: CT brain 07/09/2018 MRI brain 03/07/2009 TECHNIQUE: Multiplanar imaging includes non-contrasted T1, T2, FLAIR, and diffusion with ADC map seq uences. Images stored on PACS. [place] MRA exam was performed with 3D [id number] acquisition. Source data and maximum intensity projected multiplanar images were reviewed, and saved to pac's. LIMITATIONS: None. FINDINGS: ANATOMY: No developmental anomalies. Normal vascular flow voids. Pituitary fossa normal. CSF SPACES: Normal in size and contour. No hemorrhage. CEREBRUM AND POSTERIOR FOSSA: No MR evidence of acute ischemic change, acute intracranial hemorrhage, mass effect, or midline shift. Extensive increased FLAIR/T2 signal throughout the mid elaine and bilateral hemispheric white matter fr om chronic small vessel ischemic change, similar compared to 2008. Old lacunar infarcts in the left thalamus and bilateral basal ganglia. Internal auditory canals, cerebello-pontine angles, mastoids normal. DIFFUSION IMAGING: Negative for acute or sub-acute infarction. ORBITS: No masses. Globes normal. PARANASAL SINUSES: No fluid levels. Mucosa normal. [place] MRA: No [place] stenosis, vascular malformation or aneurysm. IMPRESSION: No MR evidence of acute ischemic change, acute intracranial hemorrhage, mass effect, or midline shift Extensive small vessel ischemic change in the hemispheric white matter and elaine with old lacunar infa rcts in the left thalamus and bilateral basal ganglia. Unremarkable [place] MRA exam EVIDENCE OF ACUTE STROKE: NO. TECHNICAL DOCUMENTATION: JOB ID: [id number]- All Rights Reserved Reading location - IP/workstation name: [email or web address]
--- NOTE | 2018-07-10 09:27 | RADIOLOGY REPORT (SQ) ---
EXAM DESCRIPTION: MRI HEAD WITHOUT; MRA HEAD WITHOUT COMPLETED DATE/TIME: 07/10/2018 9:06 am; 07/10/2018 9:07 am REASON FOR STUDY: TIA difficulty speaking, slurred speech, left-sided weakness COMPARISON: CT brain 07/09/2018 MRI brain 03/07/2009 TECHNIQUE: Multiplanar imaging includes non-contrasted T1, T2, FLAIR, and diffusion with ADC map seq uences. Images stored on PACS. [place] MRA exam was performed with 3D [id number] acquisition. Source data and maximum intensity projected multiplanar images were reviewed, and saved to pac's. LIMITATIONS: None. FINDINGS: ANATOMY: No developmental anomalies. Normal vascular flow voids. Pituitary fossa normal. CSF SPACES: Normal in size and contour. No hemorrhage. CEREBRUM AND POSTERIOR FOSSA: No MR evidence of acute ischemic change, acute intracranial hemorrhage, mass effect, or midline shift. Extensive increased FLAIR/T2 signal throughout the mid elaine and bilateral hemispheric white matter fr om chronic small vessel ischemic change, similar compared to 2008. Old lacunar infarcts in the left thalamus and bilateral basal ganglia. Internal auditory canals, cerebello-pontine angles, mastoids normal. DIFFUSION IMAGING: Negative for acute or sub-acute infarction. ORBITS: No masses. Globes normal. PARANASAL SINUSES: No fluid levels. Mucosa normal. [place] MRA: No [place] stenosis, vascular malformation or aneurysm. IMPRESSION: No MR evidence of acute ischemic change, acute intracranial hemorrhage, mass effect, or midline shift Extensive small vessel ischemic change in the hemispheric white matter and elaine with old lacunar infa rcts in the left thalamus and bilateral basal ganglia. Unremarkable [place] MRA exam EVIDENCE OF ACUTE STROKE: NO. TECHNICAL DOCUMENTATION: JOB ID: [email or web address]- All Rights Reserved Reading location - IP/workstation name: [email or web address]
[2018-07-10] MEDS ORDERED: CARVEDILOL 6.25 MG TABLET PO SCH ×2 (10:00→22:00)
[2018-07-10] MEDS ORDERED: LEVOTHYROXINE SODIUM 0.05 MG TABLET PO SCH ×2 (10:00)
[2018-07-10] MEDS ORDERED: ALLOPURINOL 300 MG TABLET PO SCH (10:00)
[2018-07-10] MEDS ORDERED: VALSARTAN 80 MG TABLET PO SCH (10:00)
[2018-07-10] MEDS ORDERED: FUROSEMIDE 20 MG TABLET PO SCH (10:00)
[2018-07-10] MEDS: DOCUSATE SODIUM 100 MG CAPSULE PO SCH ×2 (10:51→17:34)
[2018-07-10] MEDS: FAMOTIDINE 20 MG TABLET PO SCH ×2 (10:51→22:06)
[2018-07-10] MEDS ORDERED: ALLOPURINOL 100 MG TABLET PO SCH (13:00)
--- NOTE | 2018-07-10 15:19 | RADIOLOGY REPORT (SQ) ---
EXAM DESCRIPTION: CAROTID DOPPLER COMPLETED DATE/TIME: 07/10/2018 10:25 am REASON FOR STUDY: TIA COMPARISON: None. TECHNIQUE: Grayscale ultrasound, Doppler velocity and spectra, and color Doppler images acquired of the extra-cranial carotid and vertebral arteries. Images stored on PACS. LIMITATIONS: None. FINDINGS: RIGHT CAROTID CCA Velocities: Within normal limits. ICA Velocities Peak systolic 75 cm/s. End diastolic 15 cm/s. Proximal ICA/CCA peak systolic ratio 1.22. Spectra normal. No significant plaque. LEFT CAROTID CCA Velocities: Within normal limits. ICA Velocities Peak systolic 95 cm/s. End diastolic 18 cm/s. Proximal ICA/CCA peak systolic ratio 1.79. There is some moderate plaque in the carotid bulb. In the proximal internal carotid. VERTEBRAL ARTERIES: Antegrade flow. Normal waveforms. SUBCLAVIAN ARTERIES: No finding. OTHER: No other significant finding. IMPRESSION: NO HEMODYNAMICALLY SIGNIFICANT STENOSIS. COMMENT: Quality ID #[id number]: Velocity criteria are extrapolated from the diameter data as defined by t he Society of Radiologists in Ultrasound Consensus Conference. Radiology 2003: 229; 340-346. TECHNICAL DOCUMENTATION: JOB ID: [id number] [employer]- All Rights Reserved Reading location - IP/workstation name: [email or web address]
[2018-07-10] MEDS ORDERED: (PENDING PHARMACY ID) (Telmisartan [Telmisartan] 20 MG) PO SCH (16:00)
[2018-07-10] MEDS ORDERED: LOSARTAN POTASSIUM 25 MG TABLET PO SCH (16:30)
[2018-07-10] MEDS: TAMSULOSIN HCL 0.4 MG CAP.SR.24H PO SCH (17:34)
--- NOTE | 2018-07-10 18:29 | XCELERA REPORT ---
[address] [address] Transthoracic Echocardiogram Report Name: IOANA FELICIANO Age: 87 yrs Gender: Male : 1930 Patient Status: Inpatient Patient Location: [address] [place], [place] [address]A Study Date: 07/10/2018 10:06 AM Height: 72 in Weight: 180 lb BSA: 2.0 m2 Procedure: A two-dimensional transthoracic echocardiogram with color flow and Doppler was performed. The study was technically difficult with many images being suboptimal in quality. Reason For Study: TIA History: TIA. Ordering Physician: LOLITA GRIDER Performed By: Jessie Alvarez Interpretation Summary There is no obvious cardiac source of embolus noted on this transthoracic echocardiogram. Follow-up with a ELISSA is suggested if cardiac source is still suspected. The left ventricle is normal in size. There is mild concentric left ventricular hypertrophy. LV EF is 60% Left ventricular systolic function is normal. Doppler measurements suggest impaired left ventricular relaxation, which is associated with grade I/IV or mild diastolic dysfunction The left ventricular wall motion is normal. There is no thrombus. The right ventricle is normal in size and function. The right atrium is normal. The left atrium is moderately dilated. The interatrial septum is intact with no evidence for an atrial septal defect. There is mild mitral annular calcification. There is no evidence of mitral valve prolapse. There is no vegetation seen on the mitral valve. There is no mitral valve stenosis. There is a mild to moderate amount of mitral regurgitation There is no aortic valvular vegetation. There is no aortic valve stenosis There is aortic sclerosis without aortic stenosis. There is no LVOT obstruction. No aortic regurgitation is present. There is no tricuspid stenosis. There is a trace amount of tricuspid regurgitation There is mild pulmonary hypertension by echo RVSP is 34 mm of Hg , with RA mean of 10. There is no pulmonic valvular stenosis. There is no pulmonic valvular regurgitation. The aortic root is not well visualized but is probably normal size. The inferior vena cava was not visualized There is no pericardial effusion. There is no obvious cardiac source of embolus noted on this transthoracic echocardiogram. Follow-up with a ELISSA is suggested if cardiac source is still suspected MMode/2D Measurements & Calculations RVDd: 3.9 cm LVIDd: 4.3 cm FS: 29.0 % Ao root diam: 2.5 cm IVSd: 0.81 cm LVIDs: 3.1 cm EDV(Teich): 85.3 mlAo root area: LVPWd: 1.3 cm ESV(Teich): 37.6 ml4.9 cm2 EF(Teich): 55.9 % LVOT diam: 1.9 cmEDV(MOD-sp4): SV(MOD-sp4): LVOT area: 127.6 ml 69.5 ml ESV(MOD-sp4): 58.1 ml 2.8 cm2 EF(MOD-sp4): 54.5 % Doppler Measurements & Calculations MV E max conor: MV dec slope: Ao V2 max: LV V1 max P.6 cm/sec 165.7 cm/sec 6.1 mmHg MV A max conor: 368.9 cm/sec2 Ao max PG: LV V1 mean P.4 cm/sec MV dec time: 11.0 mmHg 3.0 mmHg MV E/A: 0.56 0.19 sec Ao V2 mean: LV V1 max: 112.0 cm/sec 123.7 cm/sec Ao mean PG: LV V1 mean: 5.7 mmHg 82.0 cm/sec Ao V2 VTI: 35.2 cm LV V1 VTI: 26.9 cm BUNNY(I,D): 2.1 cm2 LV dP/dt: BUNNY(V,D): 2.1 cm2 803.4 mmHg/s SV(LVOT): 75.3 ml PA V2 max: TR max conor: 86.4 cm/sec 244.5 cm/sec PA max P.0 mmHg TR max P.9 mmHg Left Ventricle The left ventricle is normal in size. There is mild concentric left ventricular hypertrophy. LV EF is 60%. Left ventricular systolic function is normal. Doppler measurements suggest impaired left ventricular relaxation, which is associated with grade I/IV or mild diastolic dysfunction. The left ventricular wall motion is normal. There is no thrombus. Right Ventricle The right ventricle is normal in size and function. Atria The right atrium is normal. The left atrium is moderately dilated. The interatrial septum is intact with no evidence for an atrial septal defect. Mitral Valve There is mild mitral annular calcification. There is no evidence of mitral valve prolapse. There is no vegetation seen on the mitral valve. There is no mitral valve stenosis. There is a mild to moderate amount of mitral regurgitation. Aortic Valve There is no aortic valvular vegetation. There is no aortic valve stenosis. There is aortic sclerosis without aortic stenosis. There is no LVOT obstruction. No aortic regurgitation is present. Tricuspid Valve There is no tricuspid stenosis. There is a trace amount of tricuspid regurgitation. There is mild pulmonary hypertension by echo. RVSP is 34 mm of Hg , with RA mean of 10. Pulmonic Valve There is no pulmonic valvular stenosis. There is no pulmonic valvular regurgitation. Great Vessels The aortic root is not well visualized but is probably normal size. The inferior vena cava was not visualized. Effusions There is no pericardial effusion. : LOLITA GRIDER > Aydee [place]
[2018-07-10] MEDS: ATORVASTATIN CALCIUM 40 MG TABLET PO SCH (22:05)
[2018-07-11] MEDS: LEVOTHYROXINE SODIUM 0.075 MG TABLET PO SCH (05:13)
[2018-07-11] MEDS: HEPARIN SOD (PORCINE) 5,000 UNIT/ML 1 ML SYRINGE SUBCUT SCH ×3 (05:14→21:09)
[2018-07-11] MEDS ORDERED: LOSARTAN POTASSIUM 50 MG TABLET PO SCH (10:00)
[2018-07-11] MEDS ORDERED: ONDANSETRON 4 MG TAB.RAPDIS PO PRN (10:00)
[2018-07-11] MEDS ORDERED: ONDANSETRON HCL INJ/PF 4 MG/2 ML SDV IV PRN (10:00)
[2018-07-11] MEDS: CALCITRIOL 0.25 MCG CAPSULE PO SCH (10:03)
[2018-07-11] MEDS: DOCUSATE SODIUM 100 MG CAPSULE PO SCH ×2 (10:04→18:58)
[2018-07-11] MEDS: ALLOPURINOL 100 MG TABLET PO SCH (10:05)
[2018-07-11] MEDS ORDERED: ALLOPURINOL 100 MG TABLET PO SCH (11:30)
--- NOTE | 2018-07-11 14:36 | PDOC PROGRESS REPORT ---
Subjective Progress Note for:: 07/11/18 Subjective:: IOANA FELICIANO is a 87 year old male who presented to the emergency room with a history of left-sided weakness and dysphasia beginning at 7:30 PM on the day prior to admission. Patient acknowledges that he had sudden onset of moderate weakness of his left arm and leg as well as mild facial drooping and moderate difficulty with his speech in that he could not express the word or words he wished to say correctly and as such was demonstrating severe stuttering or was just not able to complete sentences. He denies feeling as though he were confused as he knew exactly what he wanted to say and he understood exactly what was being said to him. He denies any other accompanying symptoms and had not experienced a loss of consciousness or recent head injury. The patient admits that his symptoms resolved gradually beginning approximately 15 minutes after onset and within an hour of the onset they had resolved completely. He denies prior similar symptoms and has not identified any aggravating or ameliorating factors for his acute weakness and dysphasia. He admits a history of chronic atrial fibrillation and he was recently taken off anticoagulant medications due to his age and risk factors. In the emergency room he was found to have a negative CT scan of the head but due to his chronic renal failure he did have a slightly elevated troponin I and as such emergency room doctor wanted to have him stay for serial cardiac enzymes to rule out a potential silent myocardial infarction despite the patient's normal EKG and unchanged level of troponin on repeat evaluation 07/11/2018. No acute events overnight. Patient denies any fever, chills, nausea, vomiting, diarrhea, constipation, lightheadedness, focal neurological deficit. Was evaluated by physical therapy today to ambulate 100 feet and is stating, unsafe, knee buckling, normal based gait pattern with constant cues given to stand upright. Mentation was [id number] patient condition is for patient to be discharged to SNF. 07/10/2018. MRI brain no MR evidence of acute ischemic changes acute intracranial hemorrhage mass-effect or midline shift. 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 Negative for acute stroke. Doppler no hemodynamically significant stenosis. 2D echo left ventricular ejection fraction more than 60%. No thrombus. Reason For Visit: ELEVATED TROPONIN LEVEL,ACUTE TIA RESOLVED Physical Exam Vital Signs: Temp Pulse Resp BP Pulse Ox 97.7 F 52 L 18 178/58 H 97 07/11/18 08:34 07/11/18 08:34 07/11/18 08:34 07/11/18 08:34 07/11/18 08:34 Intake & Output 07/10/18 07/11/18 07/12/18 06:59 06:59 06:59 Intake Total 1284 Output Total 250 350 Balance -250 934 Weight 79.2 kg 79.2 kg General appearance: PRESENT: no acute distress, well-developed, well-nourished Head exam: PRESENT: atraumatic, normocephalic Neck exam: ABSENT: carotid bruit, JVD, lymphadenopathy, thyromegaly Respiratory exam: PRESENT: clear to auscultation mook. ABSENT: rales, rhonchi, wheezes Cardiovascular exam: PRESENT: RRR. ABSENT: diastolic murmur, rubs, systolic murmur GI/Abdominal exam: PRESENT: normal bowel sounds, soft. ABSENT: distended, guarding, mass, organolmegaly, rebound, tenderness Extremities exam: PRESENT: full ROM. ABSENT: calf tenderness, clubbing, pedal edema Neurological exam: PRESENT: alert, awake, oriented to person, oriented to place, oriented to time, oriented to situation, abnormal gait, CN II-XII grossly intact. 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 EVIDENCE OF ACUTE STROKE: NO. 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 Unremarkable [place] MRA exam EVIDENCE OF ACUTE STROKE: NO. Carotid Doppler Study 07/10/18 00:00 IMPRESSION: NO HEMODYNAMICALLY SIGNIFICANT STENOSIS. 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 Unremarkable [place] MRA exam EVIDENCE OF ACUTE STROKE: NO. Assessment & Plan - Diagnosis (1) Transient ischemic attack (TIA) Is this a current diagnosis for this admission?: Yes Plan: No new focal neurological deficit except for chronic unsteady gait and loss of balance likely residual deficits from previous lacunar infarct. Statins, aspirin, optimize blood pressure. PT OT ST. 07/10/2018. MRI brain no MR evidence of acute ischemic changes acute intracranial hemorrhage mass-effect or midline shift. 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 Negative for acute stroke. 07/10/2018: Doppler no hemodynamically significant stenosis. 07/10/2018: 2D echo left ventricular ejection fraction more than 60%. No thrombus. (2) HTN (hypertension) Is this a current diagnosis for this admission?: Yes Plan: Not optimized. SBP 150-178. Continue Lasix, Cozaar, clonidine. Adjust meds as needed. (3) Atrial fibrillation Qualifiers: Atrial fibrillation type: chronic Qualified Code(s): I48.2 - Chronic atrial fibrillation Is this a current diagnosis for this admission?: Yes Plan: History of A. fib. Not anticoagulated due to unsteady gait and loss of balance. (4) CKD (chronic kidney disease), stage III Is this a current diagnosis for this admission?: Yes Plan: Nonoliguric. Creatinine stable. Monitor electrolytes and volume status. Out patient nephrology follow-up. (5) Hypothyroid Qualifiers: Hypothyroidism type: unspecified Qualified Code(s): E03.9 - Hypothyroidism, unspecified Is this a current diagnosis for this admission?: Yes Plan: Restart home meds. (6) Physical deconditioning Is this a current diagnosis for this admission?: Yes Plan: Likely due to chronic lacunar infarct with residual deficits. Continue PT while inpatient. Pending transfer to SNF
[2018-07-11] MEDS ORDERED: CLONIDINE HCL 0.1 MG TABLET PO SCH (18:00)
[2018-07-11] MEDS: TAMSULOSIN HCL 0.4 MG CAP.SR.24H PO SCH (18:58)
[2018-07-11] MEDS: ATORVASTATIN CALCIUM 40 MG TABLET PO SCH (21:11)
[2018-07-11] MEDS: FAMOTIDINE 20 MG TABLET PO SCH (21:11)
[2018-07-12] MEDS: LEVOTHYROXINE SODIUM 0.075 MG TABLET PO SCH (05:24)
[2018-07-12] MEDS: HEPARIN SOD (PORCINE) 5,000 UNIT/ML 1 ML SYRINGE SUBCUT SCH ×3 (05:25→21:17)
[2018-07-12 06:33] LABS: ABSOLUTE BASOPHILS # (AUTO) 0.1 10^3/uL (0.0-0.2); ABSOLUTE EOSINOPHILS # (AUTO) 0.1 10^3/uL (0.0-0.6); ABSOLUTE LYMPHOCYTES (AUTO) 1.8 10^3/uL (0.5-4.7); ABSOLUTE MONOCYTES (AUTO) 0.6 10^3/uL (0.1-1.4); ABSOLUTE NEUT (AUTO) 5.1 10^3/uL (1.7-8.2); BASOPHILS % (AUTO) 1.2 % (0-2); EOSINOPHILS % (AUTO) 1.1 % (0-6); HEMATOCRIT 30.5 % (37.9-51.0); HEMOGLOBIN 10.4 g/dL (13.5-17.0); LYMPHOCYTES % (AUTO) 23.7 % (13-45); MEAN CORPUSCULAR HEMOGLOBIN 34.6 pg (27.0-33.4); MEAN CORPUSCULAR HGB CONC 34.2 g/dL (32.0-36.0); MEAN CORPUSCULAR VOLUME 101 fl (80-97); MONOCYTES % (AUTO) 7.2 % (3-13); PLATELET COUNT 163 10^3/uL (150-450); RED BLOOD COUNT 3.02 10^6/uL (4.35-5.55); RED CELL DISTRIBUTION WIDTH 20.7 % (11.5-14.0); SEGMENTED NEUTROPHILS % (AUTO) 66.8 % (42-78); TOTAL CELLS COUNTED % (AUTO) 100 %; WHITE BLOOD COUNT 7.7 10^3/uL (4.0-10.5)
[2018-07-12 06:55] LABS: ALANINE AMINOTRANSFERASE 32 U/L (21-72); ALBUMIN 4.2 g/dL (3.5-5.0); ALKALINE PHOSPHATASE 67 U/L (38-126); ANION GAP 9 (5-19); ASPARTATE AMINO TRANSFERASE 50 U/L (17-59); BILIRUBIN,DIRECT 0.3 mg/dL (0.0-0.4); BILIRUBIN,TOTAL 0.9 mg/dL (0.2-1.3); BLOOD UREA NITROGEN 36 mg/dL (7-20); CALCIUM 9.3 mg/dL (8.4-10.2); CARBON DIOXIDE 23 mmol/L (22-30); CHLORIDE 109 mmol/L (98-107); GLUCOSE 89 mg/dL (75-110); POTASSIUM 5.3 mmol/L (3.6-5.0); SODIUM 140.9 mmol/L (137-145); TOTAL PROTEIN 7.3 g/dL (6.3-8.2)
--- NOTE | 2018-07-12 08:41 | PDOC PROGRESS REPORT ---
Subjective Progress Note for:: 07/12/18 Subjective:: IOANA FELICIANO is a 87 year old male who presented to the emergency room with a history of left-sided weakness and dysphasia beginning at 7:30 PM on the day prior to admission. Patient acknowledges that he had sudden onset of moderate weakness of his left arm and leg as well as mild facial drooping and moderate difficulty with his speech in that he could not express the word or words he wished to say correctly and as such was demonstrating severe stuttering or was just not able to complete sentences. He denies feeling as though he were confused as he knew exactly what he wanted to say and he understood exactly what was being said to him. He denies any other accompanying symptoms and had not experienced a loss of consciousness or recent head injury. The patient admits that his symptoms resolved gradually beginning approximately 15 minutes after onset and within an hour of the onset they had resolved completely. He denies prior similar symptoms and has not identified any aggravating or ameliorating factors for his acute weakness and dysphasia. He admits a history of chronic atrial fibrillation and he was recently taken off anticoagulant medications due to his age and risk factors. In the emergency room he was found to have a negative CT scan of the head but due to his chronic renal failure he did have a slightly elevated troponin I and as such emergency room doctor wanted to have him stay for serial cardiac enzymes to rule out a potential silent myocardial infarction despite the patient's normal EKG and unchanged level of troponin on repeat evaluation 07/11/2018. No acute events overnight. Patient denies any fever, chills, nausea, vomiting, diarrhea, constipation, lightheadedness, focal neurological deficit. Was evaluated by physical therapy today to ambulate 100 feet and is stating, unsafe, knee buckling, normal based gait pattern with constant cues given to stand upright. Mentation was [id number] patient condition is for patient to be discharged to SNF. 07/10/2018. MRI brain no MR evidence of acute ischemic changes acute intracranial hemorrhage mass-effect or midline shift. 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 Negative for acute stroke. Doppler no hemodynamically significant stenosis. 2D echo left ventricular ejection fraction more than 60%. No thrombus. 07/12/2018. No acute events overnight. Patient denies any lightheadedness, focal neurological deficit, fever, chills, nausea, vomiting, diarrhea, constipation or any urinary symptoms. Patient still has unsteady gait and bilateral upper extremity resting and intention tremor. Reason For Visit: ELEVATED TROPONIN LEVEL,ACUTE TIA RESOLVED Physical Exam Vital Signs: Temp Pulse Resp BP Pulse Ox 97.6 F 71 20 191/93 H 100 07/12/18 07:59 07/12/18 07:59 07/12/18 07:59 07/12/18 07:59 07/12/18 07:59 Intake & Output 07/11/18 07/12/18 07/13/18 06:59 06:59 06:59 Intake Total 1284 811 Output Total 350 1050 Balance 934 -239 Weight 79.2 kg 78.8 kg General appearance: PRESENT: no acute distress, well-developed, well-nourished Head exam: PRESENT: atraumatic, normocephalic Neck exam: ABSENT: carotid bruit, JVD, lymphadenopathy, thyromegaly Respiratory exam: PRESENT: clear to auscultation mook. ABSENT: rales, rhonchi, wheezes Cardiovascular exam: PRESENT: RRR. ABSENT: diastolic murmur, rubs, systolic murmur GI/Abdominal exam: PRESENT: normal bowel sounds, soft. ABSENT: distended, guarding, mass, organolmegaly, rebound, tenderness Extremities exam: PRESENT: full ROM. ABSENT: calf tenderness, clubbing, pedal edema Neurological exam: PRESENT: alert, awake, oriented to person, oriented to place, oriented to time, oriented to situation, CN II-XII grossly intact, other - Unsteady gait, bilateral upper extremity resting and intention tremor. Bilateral upper extremity cogwheel rigidity in the elbows.. ABSENT: motor sensory deficit Results Laboratory Results: 07/12/18 05:28 07/12/18 05:28 07/12/18 07/12/18 05:28 05:28 WBC 7.7 RBC 3.02 L Hgb 10.4 L Hct 30.5 L MCV 101 H MCH 34.6 H MCHC 34.2 RDW 20.7 H Plt Count 163 Seg Neutrophils % 66.8 Lymphocytes % 23.7 Monocytes % 7.2 Eosinophils % 1.1 Basophils % 1.2 Absolute Neutrophils 5.1 Absolute Lymphocytes 1.8 Absolute Monocytes 0.6 Absolute Eosinophils 0.1 Absolute Basophils 0.1 Sodium 140.9 Potassium 5.3 H Chloride 109 H Carbon Dioxide 23 Anion Gap 9 BUN 36 H Creatinine 2.46 H Est GFR ( Amer) 30 L Est GFR (Non-Af Amer) 25 L Glucose 89 Calcium 9.3 Magnesium 2.2 Total Bilirubin 0.9 AST 50 ALT 32 Alkaline Phosphatase 67 Total Protein 7.3 Albumin 4.2 07/09/18 07/09/18 07/10/18 20:48 20:48 02:55 Creatine Kinase 180 H Troponin I 0.078 0.073 NT-Pro-B Natriuret Pep 218 07/10/18 10:44 Creatine Kinase Troponin I 0.079 NT-Pro-B Natriuret Pep Impressions: Chest X-Ray 07/09/18 00:00 IMPRESSION: No acute cardiopulmonary process copyright 2010 [employer]- All Rights Reserved Head CT 07/09/18 00:00 IMPRESSION: Chronic white matter disease with old lacunar infarcts in the bilateral basal ganglia. EVIDENCE OF ACUTE STROKE: NO. 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 Unremarkable [place] [facility] [place] MRA exam EVIDENCE OF ACUTE STROKE: NO. Carotid Doppler Study 07/10/18 00:00 IMPRESSION: NO HEMODYNAMICALLY SIGNIFICANT STENOSIS. 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 Unremarkable [place] [facility] [place] MRA exam EVIDENCE OF ACUTE STROKE: NO. Assessment & Plan - Diagnosis (1) Transient ischemic attack (TIA) Is this a current diagnosis for this admission?: Yes Plan: No new focal neurological deficit except for chronic unsteady gait and loss of balance likely residual deficits from previous lacunar infarct. Statins, aspirin, optimize blood pressure. PT OT ST. 07/10/2018. MRI brain no MR evidence of acute ischemic changes acute intracranial hemorrhage mass-effect or midline shift. 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 Negative for acute stroke. 07/10/2018: Doppler no hemodynamically significant stenosis. 07/10/2018: 2D echo left ventricular ejection fraction more than 60%. No thrombus. (2) HTN (hypertension) Is this a current diagnosis for this admission?: Yes Plan: Not optimized. SBP 150-178. DC Cozaar due to hyperkalemia and worsening kidney function. DC clonidine swtich to BB for underlying A.fib. Increase amlodipine to 10 mg daily. Hydralazine 50 mg every 8. Furosemide 40 mg p.o. daily. Monitor vitals adjust meds as needed. (3) Atrial fibrillation Qualifiers: Atrial fibrillation type: chronic Qualified Code(s): I48.2 - Chronic atrial fibrillation Is this a current diagnosis for this admission?: Yes Plan: History of A. fib. Not anticoagulated due to unsteady gait and loss of balance. (4) CKD (chronic kidney disease), stage III Is this a current diagnosis for this admission?: Yes Plan: Nonoliguric. Creatinine stable. Hyperkalemia. Monitor electrolytes and volume status. Outpatient nephrology follow-up. (5) Hypothyroid Qualifiers: Hypothyroidism type: unspecified Qualified Code(s): E03.9 - Hypothyroidism, unspecified Is this a current diagnosis for this admission?: Yes Plan: Restart home meds. (6) Physical deconditioning Is this a current diagnosis for this admission?: Yes Plan: Likely due to chronic lacunar infarct with residual deficits. Continue PT while inpatient. Pending transfer to SNF/rehab. (7) Tremor Is this a current diagnosis for this admission?: Yes Plan: Multifactorial. Likely essential tremor, neurodegenerative disorder such as Parkinson disease, residual neurological deficit due to history of lacunar infarct. Patient has unsteady shuffling gait, cogwheel rigidity bilateral upper extremity elbow joints, he also has intention and resting tremor raises question of Parkinson disease. We will continue levodopa/carbidopa and benztropine at this point. Reevaluate patient tomorrow. (8) Hyperkalemia Is this a current diagnosis for this admission?: Yes Plan: Hyperkalemia protocol. DC Cozaar. [place]. BMP tomorrow.
[2018-07-12] MEDS ORDERED: LEVALBUTEROL HCL NEB 1.25 MG/3 ML AMPUL NEB ONE ×2 (08:49→10:30)
[2018-07-12] MEDS ORDERED: AMLODIPINE BESYLATE 5 MG TABLET PO SCH (10:00)
[2018-07-12] MEDS ORDERED: PROPRANOLOL HCL 40 MG TABLET PO SCH (10:00)
[2018-07-12] MEDS ORDERED: CALCIUM GLUCONATE 1000 MG/10 ML INJ IV ONE (10:30)
[2018-07-12] MEDS: AMLODIPINE BESYLATE 5 MG TABLET PO SCH (11:09)
[2018-07-12] MEDS: FUROSEMIDE 40 MG TABLET PO SCH (11:09)
[2018-07-12] MEDS: ALLOPURINOL 100 MG TABLET PO SCH (11:09)
[2018-07-12] MEDS: CARBIDOPA/LEVODOPA 10-100 MG TABLET PO SCH ×2 (11:09→21:18)
[2018-07-12] MEDS: DOCUSATE SODIUM 100 MG CAPSULE PO SCH ×2 (11:10→18:41)
[2018-07-12] MEDS ORDERED: HYDRALAZINE HCL 50 MG TABLET PO SCH (14:00)
[2018-07-12] MEDS: TAMSULOSIN HCL 0.4 MG CAP.SR.24H PO SCH (18:41)
[2018-07-12] MEDS: PATIROMER 8.4 GM SUSP PACKET PO SCH (18:41)
--- NOTE | 2018-07-12 20:15 | RADIOLOGY REPORT (SQ) ---
EXAM DESCRIPTION: CT HEAD WITHOUT IV CONTRAST COMPLETED DATE/TME: 07/12/2018 00:00 CLINICAL HISTORY: 87 years, Male, r/o bleed. left side numbness-tia? COMPARISON: MRI brain 07/10/2018. CT brain 07/09/2018. TECHNIQUE: 197 Images stored on PACS. All CT scanners at this facility use dose modulation, iterative reconstruction, and/or weight based dosing when appropriate to reduce radiation dose to as low as reasonably achievable (ALARA). [facility]: Dose Right [facility]: CareDose [facility]: Dose Right [facility]: Teradose 4D [facility]: [employer] LIMITATIONS: None. FINDINGS: The globes are intact. The paranasal sinuses and mastoid air cells are well aerated. No displaced or depressed skull fracture. No intra or extra-axial hemorrhage. CT is limited for evaluation of acute infarct. No CT evidence for large or territorial acute infarct. Age-appropriate atrophy. Extensive small vessel ischemic change. No mass or midline shift. IMPRESSION: Age-appropriate atrophy with small vessel ischemic change TECHNICAL DOCUMENTATION: Quality ID # 436: Final reports with documentation of one or more dose reduction techniques (e.g., Automated exposure control, adjustment of the mA and/or kV according to patient size, use of iterative reconstruction technique) copyright 2011 [employer]- All Rights Reserved
[2018-07-12] MEDS ORDERED: CLONIDINE HCL 0.2 MG TABLET PO ONE (20:45)
[2018-07-12] MEDS: HYDROCODONE/ACETAMINOPHEN 5-325 MG TABLET PO PRN (20:45)
[2018-07-12] MEDS: ATORVASTATIN CALCIUM 40 MG TABLET PO SCH (21:17)
[2018-07-12] MEDS: HYDRALAZINE HCL 50 MG TABLET PO SCH (21:17)
[2018-07-12] MEDS: FAMOTIDINE 20 MG TABLET PO SCH (21:17)
[2018-07-12] MEDS ORDERED: BENZTROPINE MESYLATE 1 MG TABLET PO SCH (22:00)
[2018-07-13 06:08] LABS: ABSOLUTE BASOPHILS # (AUTO) 0.1 10^3/uL (0.0-0.2); ABSOLUTE EOSINOPHILS # (AUTO) 0.1 10^3/uL (0.0-0.6); ABSOLUTE LYMPHOCYTES (AUTO) 1.9 10^3/uL (0.5-4.7); ABSOLUTE MONOCYTES (AUTO) 0.6 10^3/uL (0.1-1.4); ABSOLUTE NEUT (AUTO) 5.2 10^3/uL (1.7-8.2); BASOPHILS % (AUTO) 1.1 % (0-2); EOSINOPHILS % (AUTO) 1.3 % (0-6); HEMATOCRIT 30.7 % (37.9-51.0); HEMOGLOBIN 10.3 g/dL (13.5-17.0); LYMPHOCYTES % (AUTO) 24.5 % (13-45); MEAN CORPUSCULAR HGB CONC 33.6 g/dL (32.0-36.0); MEAN CORPUSCULAR VOLUME 101 fl (80-97); MONOCYTES % (AUTO) 7.2 % (3-13); PLATELET COUNT 153 10^3/uL (150-450); RED BLOOD COUNT 3.03 10^6/uL (4.35-5.55); RED CELL DISTRIBUTION WIDTH 20.7 % (11.5-14.0); SEGMENTED NEUTROPHILS % (AUTO) 65.9 % (42-78); TOTAL CELLS COUNTED % (AUTO) 100 %; WHITE BLOOD COUNT 7.8 10^3/uL (4.0-10.5)
[2018-07-13] MEDS: LEVOTHYROXINE SODIUM 0.075 MG TABLET PO SCH (06:14)
[2018-07-13] MEDS: HYDRALAZINE HCL 50 MG TABLET PO SCH ×3 (06:14→22:43)
[2018-07-13] MEDS: HEPARIN SOD (PORCINE) 5,000 UNIT/ML 1 ML SYRINGE SUBCUT SCH ×3 (06:16→22:43)
[2018-07-13 06:32] LABS: ALANINE AMINOTRANSFERASE 13 U/L (21-72); ALKALINE PHOSPHATASE 68 U/L (38-126); ANION GAP 8 (5-19); ASPARTATE AMINO TRANSFERASE 51 U/L (17-59); BILIRUBIN,DIRECT 0.3 mg/dL (0.0-0.4); BILIRUBIN,TOTAL 0.8 mg/dL (0.2-1.3); BLOOD UREA NITROGEN 43 mg/dL (7-20); CALCIUM 9.4 mg/dL (8.4-10.2); CARBON DIOXIDE 24 mmol/L (22-30); CHLORIDE 107 mmol/L (98-107); GLUCOSE 93 mg/dL (75-110); POTASSIUM 5.2 mmol/L (3.6-5.0); SODIUM 139.3 mmol/L (137-145); TOTAL PROTEIN 7.1 g/dL (6.3-8.2)
[2018-07-13] MEDS: ASPIRIN 325 MG TABLET PO SCH (10:11)
[2018-07-13] MEDS: ALLOPURINOL 100 MG TABLET PO SCH (10:11)
[2018-07-13] MEDS: AMLODIPINE BESYLATE 5 MG TABLET PO SCH (10:12)
[2018-07-13] MEDS: CARBIDOPA/LEVODOPA 10-100 MG TABLET PO SCH (10:12)
[2018-07-13] MEDS: DOCUSATE SODIUM 100 MG CAPSULE PO SCH ×2 (10:12→17:58)
[2018-07-13] MEDS: FUROSEMIDE 40 MG TABLET PO SCH (10:12)
--- NOTE | 2018-07-13 10:35 | RADIOLOGY REPORT (SQ) ---
EXAM DESCRIPTION: MRI HEAD WITHOUT COMPLETED DATE/TIME: 07/13/2018 9:47 am REASON FOR STUDY: new onset left sided weakness N18.3 CHRONIC KIDNEY DISEASE, STAGE 3 (MODERATE) N1 8.2 CHRONIC KIDNEY DISEASE, STAGE 2 (MILD) COMPARISON: None. TECHNIQUE: Multiplanar imaging includes non-contrasted T1, T2, FLAIR, and diffusion with ADC map seq uences. Images stored on PACS. LIMITATIONS: Motion. FINDINGS: ANATOMY: No anomalies. Normal vascular flow voids. Pituitary fossa normal. CSF SPACES: Atrophy induced prominence of ventricles and CSF spaces. CEREBRUM: High signal intensity lesions scattered throughout the white matter on FLAIR imaging with d istribution suggesting micro-vascular ischemic changes. No evidence of hemorrhage, mass, or extraaxi al fluid collection. POSTERIOR FOSSA: No signal alteration. No hemorrhage. No edema, masses or mass effect. Internal mehnaz tory canals, cerebello-pontine angles normal. DIFFUSION IMAGING: Negative for acute or sub-acute infarction. ORBITS: No masses. Globes normal. PARANASAL SINUSES: No fluid levels. Mucosa normal. OTHER: No other significant finding. IMPRESSION: ATROPHY AND CHRONIC MICRO-VASCULAR ISCHEMIC CHANGES. OTHERWISE NORMAL MRI OF THE BRAIN W ITHOUT INTRAVENOUS GADOLINIUM CONTRAST. EVIDENCE OF ACUTE STROKE: NO. TECHNICAL DOCUMENTATION: JOB ID: [id number] [employer]- All Rights Reserved Reading location - IP/workstation name: [email or web address]
--- NOTE | 2018-07-13 10:49 | PDOC PROGRESS REPORT ---
Subjective Progress Note for:: 07/13/18 Subjective:: IOANA FELICIANO is a 87 year old male who presented to the emergency room with a history of left-sided weakness and dysphasia beginning at 7:30 PM on the day prior to admission. Patient acknowledges that he had sudden onset of moderate weakness of his left arm and leg as well as mild facial drooping and moderate difficulty with his speech in that he could not express the word or words he wished to say correctly and as such was demonstrating severe stuttering or was just not able to complete sentences. He denies feeling as though he were confused as he knew exactly what he wanted to say and he understood exactly what was being said to him. He denies any other accompanying symptoms and had not experienced a loss of consciousness or recent head injury. The patient admits that his symptoms resolved gradually beginning approximately 15 minutes after onset and within an hour of the onset they had resolved completely. He denies prior similar symptoms and has not identified any aggravating or ameliorating factors for his acute weakness and dysphasia. He admits a history of chronic atrial fibrillation and he was recently taken off anticoagulant medications due to his age and risk factors. In the emergency room he was found to have a negative CT scan of the head but due to his chronic renal failure he did have a slightly elevated troponin I and as such emergency room doctor wanted to have him stay for serial cardiac enzymes to rule out a potential silent myocardial infarction despite the patient's normal EKG and unchanged level of troponin on repeat evaluation 07/11/2018. No acute events overnight. Patient denies any fever, chills, nausea, vomiting, diarrhea, constipation, lightheadedness, focal neurological deficit. Was evaluated by physical therapy today to ambulate 100 feet and is stating, unsafe, knee buckling, normal based gait pattern with constant cues given to stand upright. Mentation was [id number] patient condition is for patient to be discharged to SNF. 07/10/2018. MRI brain no MR evidence of acute ischemic changes acute intracranial hemorrhage mass-effect or midline shift. 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 Negative for acute stroke. Doppler no hemodynamically significant stenosis. 2D echo left ventricular ejection fraction more than 60%. No thrombus. 07/12/2018. No acute events overnight. Patient denies any lightheadedness, focal neurological deficit, fever, chills, nausea, vomiting, diarrhea, constipation or any urinary symptoms. Patient still has unsteady gait and bilateral upper extremity resting and intention tremor. 07/13/2018. Overnight patient has had a mild left facial droop and left hand numbness. Blood pressure was checked and systolic blood pressure was 190-200. Was started on Catapres and CT head was done which did not show any acute abnormalities. This morning on my encounter was saying that he is feels tired otherwise his neurological symptoms had resolved. A repeat MRI head been obtained but pending the final report. His tremors and loss of balance has improved since being started on carbidopa levodopa and benztropine. He is also able to walk about 20-30 feet with the help of front-wheeled walker and nurses assistance gait seems to have improved spasticity very unstable. On my encounter he was alert oriented x3 not in any apparent distress. Reason For Visit: TIA Physical Exam Vital Signs: Temp Pulse Resp BP Pulse Ox 97.3 F 52 L 18 141/55 H 98 07/13/18 07:45 07/13/18 07:45 07/13/18 07:45 07/13/18 07:45 07/13/18 07:45 Intake & Output 07/12/18 07/13/18 07/14/18 06:59 06:59 06:59 Intake Total 811 592 Output Total 1050 825 Balance -239 -233 Weight 78.8 kg 77.5 kg General appearance: PRESENT: no acute distress, well-developed, well-nourished Head exam: PRESENT: atraumatic, normocephalic Respiratory exam: PRESENT: clear to auscultation mook. ABSENT: rales, rhonchi, wheezes Cardiovascular exam: PRESENT: RRR. ABSENT: diastolic murmur, rubs, systolic murmur Neurological exam: PRESENT: alert, altered, awake, oriented to time, oriented to situation, abnormal gait, CN II-XII grossly intact, motor sensory deficit Skin exam: PRESENT: dry, intact, warm. ABSENT: cyanosis, rash Results Laboratory Results: 07/13/18 05:49 07/13/18 05:49 07/13/18 07/13/18 05:49 05:49 WBC 7.8 RBC 3.03 L Hgb 10.3 L Hct 30.7 L MCV 101 H MCH 34.0 H MCHC 33.6 RDW 20.7 H Plt Count 153 Seg Neutrophils % 65.9 Lymphocytes % 24.5 Monocytes % 7.2 Eosinophils % 1.3 Basophils % 1.1 Absolute Neutrophils 5.2 Absolute Lymphocytes 1.9 Absolute Monocytes 0.6 Absolute Eosinophils 0.1 Absolute Basophils 0.1 Sodium 139.3 Potassium 5.2 H Chloride 107 Carbon Dioxide 24 Anion Gap 8 BUN 43 H Creatinine 2.91 H Est GFR ( Amer) 25 L Est GFR (Non-Af Amer) 21 L Glucose 93 Calcium 9.4 Magnesium 2.1 Total Bilirubin 0.8 AST 51 ALT 13 L Alkaline Phosphatase 68 Total Protein 7.1 Albumin 4.0 07/09/18 07/09/18 07/10/18 20:48 20:48 02:55 Creatine Kinase 180 H Troponin I 0.078 0.073 NT-Pro-B Natriuret Pep 218 07/10/18 10:44 Creatine Kinase Troponin I 0.079 NT-Pro-B Natriuret Pep Impressions: Chest X-Ray 07/09/18 00:00 IMPRESSION: No acute cardiopulmonary process copyright 2010 [employer]- All Rights Reserved Brain MRI with MRA 07/10/18 00:00 IMPRESSION: No MR evidence of acute ischemic change, acute intracranial hemorrhage, mass effect, or midline shift Extensive small vessel ischemic change in the hemispheric white matter and elaine with 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 Unremarkable [place] MRA exam EVIDENCE OF ACUTE STROKE: NO. Carotid Doppler Study 07/10/18 00:00 IMPRESSION: NO HEMODYNAMICALLY SIGNIFICANT STENOSIS. Head CT 07/12/18 00:00 IMPRESSION: Age-appropriate atrophy with small vessel ischemic change TECHNICAL DOCUMENTATION: Quality ID # 436: Final reports with documentation of one or more dose reduction techniques (e.g., Automated exposure control, adjustment of the mA and/or kV according to patient size, use of iterative reconstruction technique) copyright 2010 [employer]- All Rights Reserved Head MRI 07/13/18 00:00 IMPRESSION: ATROPHY AND CHRONIC MICRO-VASCULAR ISCHEMIC CHANGES. OTHERWISE NORMAL MRI OF THE BRAIN WITHOUT INTRAVENOUS GADOLINIUM CONTRAST. EVIDENCE OF ACUTE STROKE: NO. Assessment & Plan - Diagnosis (1) Transient ischemic attack (TIA) Is this a current diagnosis for this admission?: Yes Plan: Overnight patient has had a mild left facial droop and left hand numbness. Blood pressure was checked and systolic blood pressure was 190-200. Was started on Catapres and CT head was done which did not show any acute abnormalities. This morning on my encounter was saying that he is feels tired otherwise his neurological symptoms had resolved. A repeat MRI head been obtained but pending the final report. He was also able to walk about 20-30 feet with the help of front-wheeled walker and nurses assistance. His gait seems to have improved as well as his spasticity very unstable being started on carbidopa levodopa. On my encounter he was alert oriented x3 not in any apparent distress. No new focal neurological deficit except for chronic unsteady gait and loss of balance. Continue statins, aspirin, optimize blood pressure. PT OT ST. Pending transfer to rehab. 07/12/2018. CT head age-appropriate atrophy with small vessel ischemic changes. 07/10/2018. MRI brain no MR evidence of acute ischemic changes, acute in tracranial hemorrhage, mass-effect or midline shift. No evidence of acute stroke. 07/10/2018. 2D echo left ventricular ejection fraction 60%. No septal defect. No thrombus. 07/10/2018. ECG first-degree AV block. LVH with secondary repolarization abnormality anterior infarct old. 07/10/2018: Doppler no hemodynamically significant stenosis. 07/10/2018: 2D echo left ventricular ejection fraction more than 60%. No thrombus. 07/09/2018. CT head chronic white matter disease with old infarcts in the bilateral basal ganglia. (2) HTN (hypertension) Is this a current diagnosis for this admission?: Yes Plan: Not optimized. SBP 150-178. DC Cozaar due to hyperkalemia and worsening kidney function. Continue clonidine, amlodipine, hydralazine, Lasix. Adjust meds as needed. He received 1 dose of propranolol for underlying tremor but he became bradycardic and it was stopped. (3) Atrial fibrillation Qualifiers: Atrial fibrillation type: chronic Qualified Code(s): I48.2 - Chronic atrial fibrillation Is this a current diagnosis for this admission?: Yes Plan: History of A. fib. Not anticoagulated due to unsteady gait and loss of balance. (4) CKD (chronic kidney disease), stage III Is this a current diagnosis for this admission?: Yes Plan: Nonoliguric. Creatinine stable. Hyperkalemia. Monitor electrolytes and volume status. Outpatient nephrology follow-up. (5) Hypothyroid Qualifiers: Hypothyroidism type: unspecified Qualified Code(s): E03.9 - Hypothyroidism, unspecified Is this a current diagnosis for this admission?: Yes Plan: Restart home meds. (6) Physical deconditioning Is this a current diagnosis for this admission?: Yes Plan: Likely due to chronic lacunar infarct with residual deficits. Continue PT while inpatient. Pending transfer to SNF/rehab. (7) Tremor Is this a current diagnosis for this admission?: Yes Plan: Multifactorial. Likely essential tremor, neurodegenerative disorder such as Parkinson disease, residual neurological deficit due to history of lacunar infarct. Patient has unsteady shuffling gait, cogwheel rigidity bilateral upper extremity elbow joints, he also has intention and resting tremor raises question of Parkinson disease. Mild improvement since being started on levodopa/carbidopa and benztropine at this point. Continue current treatment. Outpatient neurology follow-up. (8) Hyperkalemia Is this a current diagnosis for this admission?: Yes Plan: Hyperkalemia protocol. KONSTANTIN Lundberg. [facility] tomorrow.
[2018-07-13] MEDS: PATIROMER 8.4 GM SUSP PACKET PO SCH (17:58)
[2018-07-13] MEDS: TAMSULOSIN HCL 0.4 MG CAP.SR.24H PO SCH (17:58)
[2018-07-13] MEDS: FAMOTIDINE 20 MG TABLET PO SCH (22:43)
[2018-07-13] MEDS: ATORVASTATIN CALCIUM 40 MG TABLET PO SCH (22:43)
[2018-07-14] MEDS: HYDRALAZINE HCL 50 MG TABLET PO SCH ×3 (06:09→22:34)
[2018-07-14] MEDS: LEVOTHYROXINE SODIUM 0.075 MG TABLET PO SCH (06:09)
[2018-07-14] MEDS: HEPARIN SOD (PORCINE) 5,000 UNIT/ML 1 ML SYRINGE SUBCUT SCH ×2 (06:09→15:36)
[2018-07-14 07:26] LABS: ANION GAP 9 (5-19); BLOOD UREA NITROGEN 51 mg/dL (7-20); CALCIUM 9.2 mg/dL (8.4-10.2); CARBON DIOXIDE 20 mmol/L (22-30); CHLORIDE 108 mmol/L (98-107); GLUCOSE 88 mg/dL (75-110); SODIUM 137.3 mmol/L (137-145)
[2018-07-14] MEDS: CALCITRIOL 0.25 MCG CAPSULE PO SCH (10:24)
[2018-07-14] MEDS: ASPIRIN 325 MG TABLET PO SCH (10:24)
[2018-07-14] MEDS: PREDNISONE 20 MG TABLET PO SCH (10:24)
[2018-07-14] MEDS: ALLOPURINOL 100 MG TABLET PO SCH (10:24)
[2018-07-14] MEDS: AMLODIPINE BESYLATE 5 MG TABLET PO SCH (10:25)
[2018-07-14] MEDS: DOCUSATE SODIUM 100 MG CAPSULE PO SCH ×2 (10:25→17:19)
--- NOTE | 2018-07-14 12:29 | PDOC PROGRESS REPORT ---
Subjective Progress Note for:: 07/14/18 Subjective:: IOANA FELICIANO is a 87 year old male who presented to the emergency room with a history of left-sided weakness and dysphasia beginning at 7:30 PM on the day prior to admission. Patient acknowledges that he had sudden onset of moderate weakness of his left arm and leg as well as mild facial drooping and moderate difficulty with his speech in that he could not express the word or words he wished to say correctly and as such was demonstrating severe stuttering or was just not able to complete sentences. He denies feeling as though he were confused as he knew exactly what he wanted to say and he understood exactly what was being said to him. He denies any other accompanying symptoms and had not experienced a loss of consciousness or recent head injury. The patient admits that his symptoms resolved gradually beginning approximately 15 minutes after onset and within an hour of the onset they had resolved completely. He denies prior similar symptoms and has not identified any aggravating or ameliorating factors for his acute weakness and dysphasia. He admits a history of chronic atrial fibrillation and he was recently taken off anticoagulant medications due to his age and risk factors. In the emergency room he was found to have a negative CT scan of the head but due to his chronic renal failure he did have a slightly elevated troponin I and as such emergency room doctor wanted to have him stay for serial cardiac enzymes to rule out a potential silent myocardial infarction despite the patient's normal EKG and unchanged level of troponin on repeat evaluation 07/11/2018. No acute events overnight. Patient denies any fever, chills, nausea, vomiting, diarrhea, constipation, lightheadedness, focal neurological deficit. Was evaluated by physical therapy today to ambulate 100 feet and is stating, unsafe, knee buckling, normal based gait pattern with constant cues given to stand upright. Mentation was [id number] patient condition is for patient to be discharged to SNF. 07/10/2018. MRI brain no MR evidence of acute ischemic changes acute intracranial hemorrhage mass-effect or midline shift. 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 Negative for acute stroke. Doppler no hemodynamically significant stenosis. 2D echo left ventricular ejection fraction more than 60%. No thrombus. 07/12/2018. No acute events overnight. Patient denies any lightheadedness, focal neurological deficit, fever, chills, nausea, vomiting, diarrhea, constipation or any urinary symptoms. Patient still has unsteady gait and bilateral upper extremity resting and intention tremor. 07/13/2018. Overnight patient has had a mild left facial droop and left hand numbness. Blood pressure was checked and systolic blood pressure was 190-200. Was started on Catapres and CT head was done which did not show any acute abnormalities. This morning on my encounter was saying that he is feels tired otherwise his neurological symptoms had resolved. A repeat MRI head been obtained but pending the final report. His tremors and loss of balance has improved since being started on carbidopa levodopa and benztropine. He is also able to walk about 20-30 feet with the help of front-wheeled walker and nurses assistance gait seems to have improved spasticity very unstable. On my encounter he was alert oriented x3 not in any apparent distress. Was ready to be transferred to inpatient rehab however he started to have A. fib RVR, transfer had to be held and cardiology consulted. Reason For Visit: TIA Physical Exam Vital Signs: Temp Pulse Resp BP Pulse Ox 98.3 F 76 20 138/54 H 100 07/14/18 07:24 07/14/18 07:24 07/14/18 07:24 07/14/18 07:24 07/14/18 07:24 Intake & Output 07/13/18 07/14/18 07/15/18 06:59 06:59 06:59 Intake Total 592 944 Output Total 825 750 Balance -233 194 Weight 77.5 kg 77.9 kg General appearance: PRESENT: no acute distress, well-developed, well-nourished Head exam: PRESENT: atraumatic, normocephalic Respiratory exam: PRESENT: clear to auscultation mook. ABSENT: rales, rhonchi, wheezes Cardiovascular exam: PRESENT: irregular rhythm. ABSENT: diastolic murmur, rubs, systolic murmur GI/Abdominal exam: PRESENT: normal bowel sounds, soft. ABSENT: distended, g uarding, mass, organolmegaly, rebound, tenderness Neurological exam: PRESENT: alert, awake, oriented to person, oriented to place, oriented to time, oriented to situation, abnormal gait, CN II-XII grossly intact. ABSENT: motor sensory deficit Results Laboratory Results: 07/13/18 05:49 07/14/18 06:16 07/14/18 06:16 Sodium 137.3 Potassium 5.0 Chloride 108 H Carbon Dioxide 20 L Anion Gap 9 BUN 51 H Creatinine 3.39 H Est GFR ( Amer) 21 L Est GFR (Non-Af Amer) 17 L Glucose 88 Calcium 9.2 07/09/18 07/09/18 07/10/18 20:48 20:48 02:55 Creatine Kinase 180 H Troponin I 0.078 0.073 NT-Pro-B Natriuret Pep 218 07/10/18 10:44 Creatine Kinase Troponin I 0.079 NT-Pro-B Natriuret Pep Impressions: Chest X-Ray 07/09/18 00:00 IMPRESSION: No acute cardiopulmonary process copyright 2010 [employer]- All Rights Reserved Brain MRI with MRA 07/10/18 00:00 IMPRESSION: No MR evidence of acute ischemic change, acute intracranial hemorrhage, mass effect, or midline shift Extensive small vessel ischemic change in the hemispheric white matter and elaine with 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 Unremarkable [facility] [place] MRA exam EVIDENCE OF ACUTE STROKE: NO. Carotid Doppler Study 07/10/18 00:00 IMPRESSION: NO HEMODYNAMICALLY SIGNIFICANT STENOSIS. Head CT 07/12/18 00:00 IMPRESSION: Age-appropriate atrophy with small vessel ischemic change TECHNICAL DOCUMENTATION: Quality ID # [id number]: Final reports with documentation of one or more dose reduction techniques (e.g., Automated exposure control, adjustment of the mA and/or kV according to patient size, use of iterative reconstruction technique) copyright 2010 [employer]- All Rights Reserved Head MRI 07/13/18 00:00 IMPRESSION: ATROPHY AND CHRONIC MICRO-VASCULAR ISCHEMIC CHANGES. OTHERWISE NORMAL MRI OF THE BRAIN WITHOUT INTRAVENOUS GADOLINIUM CONTRAST. EVIDENCE OF ACUTE STROKE: NO. Assessment & Plan - Diagnosis (1) Transient ischemic attack (TIA) Is this a current diagnosis for this admission?: Yes Plan: No acute events overnight. Patient alert and oriented x3. Has a aphasia has resolved. Continue statins, aspirin, optimize blood pressure. PT OT ST. Pending transfer to rehab. 07/12/2018. CT head age-appropriate atrophy with small vessel ischemic changes. 07/10/2018. MRI brain no MR evidence of acute ischemic changes, acute intracranial hemorrhage, mass-effect or midline shift. No evidence of acute stroke. 07/10/2018. 2D echo left ventricular ejection fraction 60%. No septal defect. No thrombus. 07/10/2018. ECG first-degree AV block. LVH with secondary repolarization abnormality anterior infarct old. 07/10/2018: Doppler no hemodynamically significant stenosis. 07/10/2018: 2D echo left ventricular ejection fraction more than 60%. No thrombus. 07/09/2018. CT head chronic white matter disease with old infarcts in the bilateral basal ganglia. (2) HTN (hypertension) Is this a current diagnosis for this admission?: Yes Plan: Better not optimized. SBP 130-140s. DC Cozaar due to hyperkalemia and worsening kidney function. Continue clonidine, amlodipine, hydralazine, Lasix. Adjust meds as needed. He received 1 dose of propranolol for underlying tremor but he became bradycardic and it was stopped. (3) Atrial fibrillation Qualifiers: Atrial fibrillation type: chronic Qualified Code(s): I48.2 - Chronic atrial fibrillation Is this a current diagnosis for this admission?: Yes Plan: History of A. fib. Not anticoagulated due to unsteady gait and loss of balance. Patient has been in sinus rhythm since admission but today he was started having A. fib RVR. Neurology consulted for further recommendation. He was started on carvedilol 2 days ago but was stopped due to bradycardia. (4) CKD (chronic kidney disease), stage III Is this a current diagnosis for this admission?: Yes Plan: Nonoliguric. Mild increase in patent and BUN. Will DC Lasix. Electrolytes within normal limits. Monitor electrolytes and volume status. Outpatient nephrology follow-up. (5) Hypothyroid Qualifiers: Hypothyroidism type: unspecified Qualified Code(s): E03.9 - Hypothyroidism, unspecified Is this a current diagnosis for this admission?: Yes Plan: Restart home meds. (6) Physical deconditioning Is this a current diagnosis for this admission?: Yes Plan: Likely due to chronic lacunar infarct with residual deficits. Continue PT while inpatient. Pending transfer to SNF/rehab. (7) Tremor Is this a current diagnosis for this admission?: Yes Plan: Multifactorial. Likely essential tremor, neurodegenerative disorder such as Parkinson disease, residual neurological deficit due to history of lacunar infarct. Patient has unsteady shuffling gait, cogwheel rigidity bilateral upper extremity elbow joints, he also has intention and resting tremor raises question of Parkinson disease. Mild improvement since being started on levodopa/carbidopa and benztropine but had to be DC'd because of worsening neurologic function which I am not sure it was related to levodopa and carbidopa but at this point I believe we should hold until he is seen as outpatient by a neurologist. (8) Hyperkalemia Is this a current diagnosis for this admission?: Yes Plan: Resolved. Hyperkalemia protocol. KONSTANTIN Dahl. KONSTANTIN Lundberg. [facility] tomorrow.
[2018-07-14] MEDS: APIXABAN 2.5 MG TABLET PO SCH (17:19)
[2018-07-14] MEDS: TAMSULOSIN HCL 0.4 MG CAP.SR.24H PO SCH (17:19)
[2018-07-14] MEDS: FAMOTIDINE 20 MG TABLET PO SCH (22:34)
[2018-07-14] MEDS: ATORVASTATIN CALCIUM 40 MG TABLET PO SCH (22:34)
[2018-07-14] MEDS: METOPROLOL SUCCINATE 25 MG TAB.SR.24H PO SCH (22:34)
--- NOTE | 2018-07-14 23:57 | PDOC CONSULTATION ---
Consultation-Blank Consultation: CARDIOLOGY CONSULTATION by Dr. Aydee Madrid on 07/14/2018. Patient seen at 5:30 PM on 07/14/2018. REASON FOR CONSULTATION: Atrial fibrillation. HISTORY of PRESENT ILLNESS: Patient is a 87-year-old Afro-[place] male, with known history of hypertension,: Aortic stenosis status post TAVR in November 2017, history of proximal atrial fibrillation,, COPD, and history of chronic kidney disease admitted with left-sided weakness which is transient along with dysphagia. These resolved completely. The patient's BLOCKER HEATED METAL FORMS workup shows no evidence of acute stroke, and hence there is a TIA. Note that the patient has a history of proximal atrial fibrillation and was on Coumadin prior to his TA VR. Subsequently after the T AVR, the patient was on Eliquis for a short period of time. This was stopped for unknown reason. The patient claims that he was told that because of the T AVR he did not need Eliquis. And hence the patient has been off Eliquis for at least 2 months. The patient although he denies any palpitations, he is not aware of any symptoms when he is in atrial fibrillation. This hospital admission the patient went into atrial fibrillation since his beta-tripp was stopped. Subsequently with the beta-blockers restarted the patient went back into sinus rhythm. Most likely the patient's TIA was secondary to the patient not being on chronic anticoagulation for his paroxysmal atrial fibrillation. The patient now is fully recovered from his TIA symptoms, and is going to rehab, since he has difficulty in walking. This difficulty walking has been a long-standing issue. He denies any chest pain or discomfort. There is no shortness of breath. There is no PND orthopnea. There is no cough or wheezing. There is no leg edema. PAST MEDICAL HISTORY: He has a history of hypertension. He also has a history of COPD and chronic kidney disease. He also has a history of proximal atrial fibrillation and prior to his aortic valve percutaneous replacement he was on Coumadin. He has no prior TIA or CVA symptoms. Except for the one that led to this admission. This TIA has now resolved. He has no history of diabetes mellitus. He has a history of chronic kidney disease stage III. The patient had has had severe aortic stenosis, and also had dyspnea on exertion. It was not clear whether the dyspnea on exertion was secondary to his aortic valve stenosis or his COPD. He was finally referred [facility] me for T AVR. This the patient underwent successfully, and he had no significant coronary artery disease. He has no history of MO or anginal symptoms. There is no prior history of congestive heart failure. There is a history of COPD, but no symptoms of acute exacerbation in a long time. His chronic kidney disease has been stable. He has no prior TIA or CVA symptoms, except for the one that led to this admission. He has no history of syncope. He has no history of anxiety or depression. The patient is very forgetful. Notes that the patient has been off Eliquis for at least 2 months. He also has a history of hypothyroidism. He has a history of arthritis and gout. PAST SURGICAL HISTORY Appendectomy right foot orthopedic surgery, tonsillectomy, cardiac catheterization, and T AVR. SOCIAL HISTORY: History of smoking in the past has not smoked for a long time. No history of EtOH abuse. ALLERGIES: No known allergies. FAMILY history: Is positive for coronary artery disease, hypertension, malignancy, and hyperlipidemia. Review SYSTEMS: CONSTITUTIONAL: Denies any fever chills or rigors. Complains of generalized fatigue and weakness. HEAD: Denies headaches or head injury. EYES: No history of amblyopia diplopia. No history of amaurosis fugax. EARS: No history of hearing loss. No history of tinnitus. No history of recurrent ear infections. No vertigo. NOSE: No history of nosebleeds. No history of hayfever. MOUTH: No history of altered taste sensation. No history of ulcers in the mouth. NOSE BLEEDING FROM THE GUMS. Throat: No history of odynophagia or dysphagia. No recurrent sore throats. SKIN: No history of pruritus. No history of yellowish discoloration of the skin. No history of psoriasis. No history of skin cancer. NECK: No history of neck pain. No history of swelling in the neck. No goiter. LUNGS: History of COPD. No recent symptoms of wheezing cough or sputum production. No history of sleep apnea. No history of pulmonary embolism. No history of hemoptysis or pleuritic chest pain. CARDIAC: History of hypertension present history of hyperlipidemia present. History of aortic stenosis status post T AVR. He states after this procedure his shortness of breath is much improved a lot. He has no syncope. He has a history of proximal atrial fibrillation. His Eliquis was stopped about 2 months ago. This led to the patient's TIA. There is no history of PND orthopnea or leg edema. RENAL: History of chronic kidney disease stage III No history of 6 uterine symptoms a UTI. No history of hematuria pyuria or dysuria. ENDOCRINE: No history of diabetes mellitus. No he no history of polydipsia polyuria. History of hypothyroidism on replacement. No history of heat or cold intolerance. MUSCULOSKELETAL: History of arthritis present. NO HISTORY OF COLLAGEN VASCULAR DISEASE. GI: No history of GERD. No history of GI bleed. No history of fatty food intolerance. No history of altered bowel movements. No history of abdominal pain no history of jaundice or hepatitis. No history of ascites. METABOLIC: History of hyperlipidemia present. No history of obesity. History of gout present. BLOCKER HEATED METAL FORMS: There is the first episode of TIA. No prior history of TIAs or CVA. No history of headaches migraines or seizures. History of chronic gait imbalance. PSYCHIATRIC: No history of anxiety or depression. No history of suicidal ideation. No history of homicidal ideation. VASCULAR: No history of calf or buttock claudication. No history of DVT. HEMATOLOGICAL: History of chronic anemia present this was due to his chronic kidney disease. No history of bleeding diathesis. No history of clotting disorders. PHYSICAL EXAMINATION: The patient is well-built and well-nourished. At present in no acute distress. Selected Entries 07/14/18 15:04 Temperature 98.5 F Temperature Oral Source Pulse Rate 83 Respiratory 20 Rate Blood Pressure 128/64 H Blood Pressure 85 Mean BP Location Left Arm BP Position Sitting O2 Sat by Pulse 100 Oximetry Oxygen Delivery Room Air Method HEAD: Is atraumatic normocephalic. EYES: Pupils are equal round regular reactive to light accommodation. Extraocular movements are normal. There is no conjunctival pallor. THERE IS NO SCLERAL ICTERUS. Ears: Tympanic membranes are intact. External auditory canals are clear. NOSE: There is no deviated nasal septum. There is no inflammation of the nasal mucous membrane. MOUTH: Mucous membranes of mouth are moist tongue is moist. There is no ulcers. There is no bleeding from the gums. THROAT: There is no redness of the oropharynx. There is no exudates. SKIN: There is no petechia or ecchymosis. There is no skin lesions or skin rashes. NECK: Is supple. There is no JVD. Carotids are equal there is no bruit there is no lymphadenopathy. There is no goiter. There is no accessory muscles of respiration use. Trachea central. LUNGS: There is diminished air entry and prolonged expiration, without any rhonchi rales or wheezing. ON percussion there is hyperresonance. There is no chest wall tenderness on palpation. HEART: S1-S2 is heard. At present S1 is of normal intensity. There is no S3 gallop. There is no S4 gallop. There is systolic murmur left sternal border and the apex. There is no evidence of any significant aortic stenosis or aortic regurgitation murmur. No significant mitral regurgitation murmur. There is no rub. ABDOMEN: Is soft. Nontender. There is no hepatosplenic megaly bowel sounds well heard. EXTREMITIES: Femorals are slightly diminished. There is no femoral bruits. Leg pulses slightly diminished. There is no pedal edema. There is no DVT or cellulitis. There is no calf tenderness. There is no cyanosis or clubbing. Capillary refill is normal. BLOCKER HEATED METAL FORMS: The patient's at present conscious awake alert oriented x3 with no focal deficits. His has normal strength on the left side at present. PSYCHIATRIC: The patient judgment insight are intact his affect is normal. The patient does have some slow mentation. Current Medications Generic Name Dose Route Start Last Admin Trade Name Freq PRN Reason Stop Dose Admin Hydrocodone Bitart/Acetaminophen 1 tab 07/10/18 17:35 07/12/18 20:45 [place] 5-325 Mg Tablet PO 07/17/18 17:34 1 tab Q6HP PRN Administration FOR PAIN Al Hydrox/Mg Hydrox/Simethicone 30 ml 07/10/18 02:00 Maalox Plus Susp 30 Udcup PO 08/09/18 01:59 Q6HP PRN HEARTBURN Allopurinol 200 mg 07/11/18 10:00 07/14/18 10:24 Zyloprim 100 Mg Tablet PO 08/10/18 09:59 200 mg DAILY DONNA Administration Amlodipine Besylate 10 mg 07/12/18 10:00 07/14/18 10:25 Norvasc 5 Mg Tablet PO 08/11/18 09:59 10 mg DAILY DONNA Administration Apixaban 2.5 mg 07/14/18 18:00 07/14/18 17:19 Eliquis 2.5 Mg Tablet PO 08/13/18 17:59 2.5 mg BID DONNA Administration Aspirin 325 mg 07/13/18 10:00 07/14/18 10:24 Aspirin 325 Mg Tablet PO 08/12/18 09:59 325 mg DAILY DONNA Administration Atorvastatin Calcium 40 mg 07/10/18 22:00 07/14/18 22:34 Lipitor 40 Mg Tablet PO 08/09/18 21:59 40 mg QHS DONNA Administration Calcitriol 0.25 mcg 07/11/18 10:00 07/14/18 10:24 Rocaltrol 0.25 Mcg Capsule PO 08/10/18 09:59 0.25 mcg MOFR@1000 DONNA Administration Clonidine HCl 1 each 07/19/18 10:00 Catapres-Tts 3 (0.3 Mg/24 Hr) Transderm Patch TD 08/18/18 09:59 Sa@10 DONNA Docusate Sodium 100 mg 07/10/18 10:00 07/14/18 17:19 Colace 100 Mg Capsule PO 08/09/18 09:59 100 mg BID DONNA Administration Famotidine 20 mg 07/11/18 22:00 07/14/18 22:34 Pepcid 20 Mg Tablet PO 08/10/18 21:59 20 mg QHS DONNA Administration Hydralazine HCl 100 mg 07/14/18 14:00 07/14/18 22:34 Apresoline 50 Mg Tablet PO 08/13/18 13:59 100 mg Q8 DONNA Administration Influenza Virus Vaccine Quadrival 0.5 ml 07/11/18 10:00 Fluarix Adlt Quad Vac 0.5 Ml Syr IM 08/09/18 04:19 .DISCHARGE PRN THIS MED IS NOT "PRN" Levothyroxine Sodium 0.075 mg 07/11/18 06:00 07/14/18 06:09 Synthroid 0.075 Mg Tablet PO 08/10/18 05:59 0.075 mg Q6AM DONNA Administration Magnesium Hydroxide 30 ml 07/10/18 02:00 Milk Of Magnesia 30 Ml Udcup PO 08/09/18 01:59 HSP PRN FOR CONSTIPATION Metoprolol Succinate 25 mg 07/14/18 22:00 07/14/18 22:34 Toprol Xl 25 Mg Tab.Sr PO 08/13/18 21:59 25 mg Q12 DONNA Administration Ondansetron HCl 4 mg 07/11/18 10:00 Zofran Inj/Pf 4 Mg/2 Ml Sdv IV 08/09/18 01:59 Q4HP PRN FOR NAUSEA/VOMITING Ondansetron HCl 4 mg 07/11/18 10:00 Zofran Odt 4 Mg Tablet PO 08/09/18 01:59 Q4HP PRN FOR NAUSEA/VOMITING Prednisone 40 mg 07/14/18 10:00 07/14/18 10:24 Deltasone 20 Mg Tablet PO 08/13/18 09:59 40 mg DAILY DONNA Administration Sodium Chloride 2.5 ml 07/10/18 06:00 07/14/18 22:34 Saline Flush 2.5 Ml Monoject Prefil Syrin IV 08/09/18 05:59 2.5 ml Q8 DONNA Administration Tamsulosin HCl 0.4 mg 07/10/18 18:00 07/14/18 17:19 Flomax 0.4 Mg Cap.Sr PO 08/09/18 17:59 0.4 mg QPM DONNA Administration Discontinued Medications Generic Name Dose Route Start Last Admin Trade Name Freq PRN Reason Stop Dose Admin Hydrocodone Bitart/Acetaminophen 1 tab 07/10/18 06:00 07/10/18 17:36 [place] 5-325 Mg Tablet PO 07/17/18 05:59 Not Given Q6 DONNA Albuterol 1 puff 07/10/18 02:06 Proair Hfa Inhalation Aerosol 8.5 Gm Mdi IH 08/09/18 02:05 Q4 PRN FOR WHEEZING Allopurinol 100 mg 07/10/18 10:00 07/10/18 10:51 Zyloprim 300 Mg Tablet PO 08/09/18 09:59 100 mg DAILY DONNA Administration Allopurinol 100 mg 07/11/18 11:30 Zyloprim 100 Mg Tablet PO 08/10/18 11:29 DAILY DONNA Allopurinol 100 mg 07/10/18 13:00 07/10/18 12:44 Zyloprim 100 Mg Tablet PO 08/09/18 12:59 100 mg DAILY DONNA Administration Amlodipine Besylate 5 mg 07/12/18 10:00 Norvasc 5 Mg Tablet PO 08/11/18 09:59 DAILY DONNA Benztropine Mesylate 1 mg 07/12/18 22:00 07/12/18 21:17 Cogentin 1 Mg Tablet PO 08/11/18 21:59 1 mg QHS DONNA Administration Calcium Gluconate 1,000 mg 07/12/18 10:30 07/12/18 11:08 Calcium Gluconate Inj 1000 Mg/10 Ml IV 07/12/18 10:31 1,000 mg NOW ONE Administration Carbidopa/Levodopa 1 tab 07/12/18 10:00 07/13/18 10:12 Sinemet 10-100 Mg Tablet PO 08/11/18 09:59 1 tab Q12 DONNA Administration Carvedilol 6.25 mg 07/10/18 10:00 07/10/18 10:50 Coreg 6.25 Mg Tablet PO 08/09/18 09:59 6.25 mg Q12 DONNA Administration Carvedilol 12.5 mg 07/10/18 22:00 07/10/18 22:06 Coreg 6.25 Mg Tablet PO 08/09/18 21:59 12.5 mg Q12 DONNA Administration Clonidine 0.1 mg 07/11/18 18:00 07/11/18 18:57 Catapres 0.1 Mg Tablet PO 08/10/18 17:59 0.1 mg QPM DONNA Administration Clonidine 0.3 mg 07/12/18 20:45 07/12/18 20:44 Catapres 0.2 Mg Tablet PO 07/12/18 20:46 0.3 mg NOW ONE Administration Famotidine 20 mg 07/10/18 10:00 07/10/18 22:06 Pepcid 20 Mg Tablet PO 08/09/18 09:59 20 mg Q12 DONNA Administration Furosemide 20 mg 07/10/18 10:00 07/10/18 10:51 Lasix 20 Mg Tablet PO 08/09/18 09:59 Not Given Q2DAYS DONNA Furosemide 40 mg 07/12/18 10:00 07/13/18 10:12 Lasix 40 Mg Tablet PO 08/11/18 09:59 40 mg DAILY DONNA Administration Heparin Sodium (Porcine) 5,000 unit 07/10/18 06:00 07/14/18 15:36 Heparin Inj 5,000 Units/Ml 1 Ml Syringe SUBCUT 08/09/18 05:59 5,000 unit Q8 DONNA Administration Hydralazine HCl 50 mg 07/12/18 14:00 07/12/18 14:07 Apresoline 50 Mg Tablet PO 08/11/18 13:59 50 mg Q8 DONNA Administration Hydralazine HCl 75 mg 07/12/18 22:00 07/14/18 06:09 Apresoline 50 Mg Tablet PO 08/11/18 21:59 75 mg Q8 DONNA Administration Influenza Virus Vaccine Quadrival 0.5 ml 07/10/18 04:20 Fluarix Adlt Quad Vac 0.5 Ml Syr IM 08/09/18 04:19 .DISCHARGE PRN THIS MED IS NOT "PRN" Levalbuterol HCl 1.25 mg 07/12/18 10:30 07/12/18 11:43 Xopenex Neb 1.25 Mg/3 Ml Ampul NEB 07/12/18 10:31 Not Given RTNOW ONE Levalbuterol HCl Confirm 07/12/18 08:49 07/12/18 08:54 Xopenex Neb 1.25 Mg/3 Ml Ampul Administered 07/12/18 08:50 1.25 mg Dose Administration 1.25 mg NEB .STK-MED ONE Levothyroxine Sodium 50 mg 07/10/18 10:00 07/10/18 10:16 Synthroid 0.05 Mg Tablet PO 08/09/18 09:59 Not Given DAILY DONNA Levothyroxine Sodium 0.05 mg 07/10/18 10:00 07/10/18 10:51 Synthroid 0.05 Mg Tablet PO 08/09/18 09:59 0.05 mg DAILY DONNA Administration Losartan Potassium 25 mg 07/10/18 16:30 07/10/18 17:34 Cozaar 25 Mg Tablet PO 08/09/18 16:29 25 mg DAILY DONNA Administration Losartan Potassium 50 mg 07/11/18 10:00 07/11/18 10:11 Cozaar 50 Mg Tablet PO 08/10/18 09:59 50 mg DAILY DONNA Administration Ondansetron HCl 4 mg 07/10/18 02:00 Zofran Inj/Pf 4 Mg/2 Ml Sdv IV 08/09/18 01:59 Q4HP PRN FOR NAUSEA/VOMITING Ondansetron HCl 4 mg 07/10/18 02:00 Zofran Odt 4 Mg Tablet PO 08/09/18 01:59 Q4HP PRN FOR NAUSEA/VOMITING Patiromer 8.4 gm 07/12/18 17:00 07/13/18 17:58 Veltassa 8.4 Gm Susp Packet PO 08/11/18 16:59 8.4 gm WSUPPER DONNA Administration Propranolol HCl 40 mg 07/12/18 10:00 07/12/18 11:10 Inderal 40 Mg Tablet PO 08/11/18 09:59 40 mg Q12 DONNA Administration Valsartan 80 mg 07/10/18 10:00 07/10/18 10:51 Diovan 80 Mg Tablet PO 08/09/18 09:59 80 mg DAILY DONNA Administration Albuterol Sulfate [Proair HFA Inhalation Aerosol 8.5 gm MDI] 1 puff IH Q4 PRN 11/17/15 Allopurinol [Zyloprim 100 mg Tablet] 200 mg PO DAILY 07/10/18 Aspirin [Aspirin 81 mg Chewable Tablet] 1 tab PO DAILY 07/10/18 Calcitriol [Rocaltrol 0.25 mcg Capsule] 0.25 mcg PO MOFR@1000 07/10/18 Clonidine HCl [Catapres 0.1 mg Tablet] 0.1 mg PO QPM 07/10/18 Colchicine 1 cap PO ASDIR PRN 07/10/18 Furosemide [Lasix 40 mg Tablet] 40 mg PO QAM 07/10/18 Levothyroxine Sodium [Synthroid 0.075 mg Tablet] 1 tab PO DAILY 07/10/18 Multivitamin/Iron/Folic Acid [Centrum Complete Multivit Tab] 1 tab PO DAILY 07/10/18 Tamsulosin HCl [Flomax 0.4 mg Cap.sr] 0.4 mg PO QPM 07/10/18 Telmisartan 20 mg PO DAILY 07/10/18 Vitamin B Complex/Folic Acid [B-Complex Tablet] 1 tab PO DAILY 07/10/18 Labs- All tests 24 hr 07/14/18 06:16 Sodium 137.3 Potassium 5.0 Chloride 108 H Carbon Dioxide 20 L Anion Gap 9 BUN 51 H Creatinine 3.39 H Est GFR ( Amer) 21 L Est GFR (Non-Af Amer) 17 L Glucose 88 Calcium 9.2 Chest X-Ray 07/09/18 00:00 IMPRESSION: No acute cardiopulmonary process copyright 2011 [employer]- All Rights Reserved Head CT 07/09/18 00:00 IMPRESSION: Chronic white matter disease with old lacunar infarcts in the bilateral basal ganglia. EVIDENCE OF ACUTE STROKE: NO. Brain MRI with MRA 07/10/18 00:00 IMPRESSION: No MR evidence of acute ischemic change, acute intracranial h emorrhage, mass effect, or midline shift Extensive small vessel ischemic change in the hemispheric white matter and elaine with 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 Unremarkable [place] MRA exam EVIDENCE OF ACUTE STROKE: NO. Carotid Doppler Study 07/10/18 00:00 IMPRESSION: NO HEMODYNAMICALLY SIGNIFICANT STENOSIS. 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 Unremarkable [place] MRA exam EVIDENCE OF ACUTE STROKE: NO. Head CT 07/12/18 00:00 IMPRESSION: Age-appropriate atrophy with small vessel ischemic change TECHNICAL DOCUMENTATION: Quality ID # [id number]: Final reports with documentation of one or more dose reduction techniques (e.g., Automated exposure control, adjustment of the mA and/or kV according to patient size, use of iterative reconstruction technique) copyright 2011 [employer]- All Rights Reserved Head MRI 07/13/18 00:00 IMPRESSION: ATROPHY AND CHRONIC MICRO-VASCULAR ISCHEMIC CHANGES. OTHERWISE NORMAL MRI OF THE BRAIN WITHOUT INTRAVENOUS GADOLINIUM CONTRAST. EVIDENCE OF ACUTE STROKE: NO. Note that the shins troponin I is negative/indeterminate. The patient does not have any significant coronary artery disease. Echo shows that the left ventricle is of normal size. There is mild concentric left ventricular hypertrophy left ventricular wall motion is normal. LV ejection fraction is normal at 60%. There is mild diastolic dysfunction. The left atrium is moderately dilated. There is mild to moderate moderate mitral regurgitation present. There is evidence of aortic valve replacement without aortic stenosis or aortic regurgitation. There is trace amount of tricuspid regurgitation. Right ventricle systolic pressure is mildly elevated at 34 mmHg. There is no pericardial effusion. EKG: Shows a sinus rhythm. First-degree AV block. LVH by voltage. Minor diffuse nonspecific ST-T changes. Probable left atrial enlargement. 1. TIA: Resolved this is most likely is due to the patient being off anticoagulation. Hence would recommend restarting the patient's Eliquis. 2. Paroxysmal atrial fibrillation: Continue the patient's beta-tripp. We will restart the patient's Eliquis at 2.5 mg p.o. twice daily. 3. Status post TA VR: No evidence of restenosis. The valve seems to be working normally. 4. Hypertension: Continue his current antihypertensives. 5. Chronic kidney disease stage IV: Seems to be worse than his baseline of stage III. 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 6. Hypothyroidism: Continue thyroid replacement. 7. Hyperlipidemia: Continue statin Medications reviewed medications adjusted and added. Management plan discussed with the attending physician on the case. Patient cardiac status is stable. M edical decision making is of high complexity. 60 minutes spent on this patient more than 50% of time spent in direct patient care. Cardiac status is stable we will sign off. We will follow the patient in the office, since is a patient of mine. Discussed with the patient and patient's daughter all the above findings including echo, EKG, and x-ray findings.
[2018-07-15] MEDS: LEVOTHYROXINE SODIUM 0.075 MG TABLET PO SCH (06:05)
[2018-07-15] MEDS: HYDRALAZINE HCL 50 MG TABLET PO SCH ×3 (06:05→22:51)
[2018-07-15 06:30] LABS: ABSOLUTE LYMPHOCYTES (AUTO) 1.2 10^3/uL (0.5-4.7); ABSOLUTE MONOCYTES (AUTO) 0.9 10^3/uL (0.1-1.4); ABSOLUTE NEUT (AUTO) 6.3 10^3/uL (1.7-8.2); BASOPHILS % (AUTO) 0.3 % (0-2); EOSINOPHILS % (AUTO) 0.1 % (0-6); HEMATOCRIT 29.2 % (37.9-51.0); LYMPHOCYTES % (AUTO) 14.5 % (13-45); MEAN CORPUSCULAR HEMOGLOBIN 34.3 pg (27.0-33.4); MEAN CORPUSCULAR HGB CONC 34.2 g/dL (32.0-36.0); MEAN CORPUSCULAR VOLUME 100 fl (80-97); MONOCYTES % (AUTO) 10.7 % (3-13); PLATELET COUNT 152 10^3/uL (150-450); RED BLOOD COUNT 2.91 10^6/uL (4.35-5.55); RED CELL DISTRIBUTION WIDTH 20.5 % (11.5-14.0); SEGMENTED NEUTROPHILS % (AUTO) 74.4 % (42-78); TOTAL CELLS COUNTED % (AUTO) 100 %; WHITE BLOOD COUNT 8.5 10^3/uL (4.0-10.5)
[2018-07-15 06:51] LABS: ALANINE AMINOTRANSFERASE 30 U/L (21-72); ALBUMIN 3.9 g/dL (3.5-5.0); ALKALINE PHOSPHATASE 65 U/L (38-126); ANION GAP 10 (5-19); ASPARTATE AMINO TRANSFERASE 40 U/L (17-59); BILIRUBIN,DIRECT 0.3 mg/dL (0.0-0.4); BILIRUBIN,TOTAL 0.7 mg/dL (0.2-1.3); BLOOD UREA NITROGEN 62 mg/dL (7-20); CALCIUM 9.5 mg/dL (8.4-10.2); CARBON DIOXIDE 21 mmol/L (22-30); CHLORIDE 107 mmol/L (98-107); GLUCOSE 125 mg/dL (75-110); POTASSIUM 5.4 mmol/L (3.6-5.0); SODIUM 137.9 mmol/L (137-145); TOTAL PROTEIN 6.9 g/dL (6.3-8.2)
[2018-07-15] MEDS ORDERED: LEVOTHYROXINE SODIUM 0.075 MG TABLET PO SCH (10:00)
[2018-07-15] MEDS ORDERED: VITAMIN B COMPLEX PO SCH (10:00)
[2018-07-15] MEDS ORDERED: FOLIC ACID PO SCH (10:00)
[2018-07-15] MEDS ORDERED: (PENDING PHARMACY ID) (Multivitamin/Iron/Folic Acid [Centrum Complete Multivit Tab] 1 TAB) PO SCH (10:00)
[2018-07-15] MEDS: MULTIVITAMIN TABLET PO SCH (10:39)
[2018-07-15] MEDS: ALLOPURINOL 100 MG TABLET PO SCH (10:39)
[2018-07-15] MEDS: PREDNISONE 20 MG TABLET PO SCH (10:39)
[2018-07-15] MEDS: AMLODIPINE BESYLATE 5 MG TABLET PO SCH (10:40)
[2018-07-15] MEDS: DOCUSATE SODIUM 100 MG CAPSULE PO SCH ×2 (10:40→22:51)
[2018-07-15] MEDS: MULTIVIT-STRESS FORMULA/ZINC TABLET PO SCH (10:40)
[2018-07-15] MEDS: METOPROLOL SUCCINATE 25 MG TAB.SR.24H PO SCH ×2 (10:40→22:52)
[2018-07-15] MEDS: APIXABAN 2.5 MG TABLET PO SCH ×2 (10:41→22:52)
[2018-07-15] MEDS: ASPIRIN 81 MG TABLET, CHEWABLE PO SCH (10:42)
--- NOTE | 2018-07-15 10:59 | PDOC PROGRESS REPORT ---
Subjective Progress Note for:: 07/15/18 Subjective:: IOANA FELICIANO is a 87 year old male who presented to the emergency room with a history of left-sided weakness and dysphasia beginning at 7:30 PM on the day prior to admission. Patient acknowledges that he had sudden onset of moderate weakness of his left arm and leg as well as mild facial drooping and moderate difficulty with his speech in that he could not express the word or words he wished to say correctly and as such was demonstrating severe stuttering or was just not able to complete sentences. He denies feeling as though he were confused as he knew exactly what he wanted to say and he understood exactly what was being said to him. He denies any other accompanying symptoms and had not experienced a loss of consciousness or recent head injury. The patient admits that his symptoms resolved gradually beginning approximately 15 minutes after onset and within an hour of the onset they had resolved completely. He denies prior similar symptoms and has not identified any aggravating or ameliorating factors for his acute weakness and dysphasia. He admits a history of chronic atrial fibrillation and he was recently taken off anticoagulant medications due to his age and risk factors. In the emergency room he was found to have a negative CT scan of the head but due to his chronic renal failure he did have a slightly elevated troponin I and as such emergency room doctor wanted to have him stay for serial cardiac enzymes to rule out a potential silent myocardial infarction despite the patient's normal EKG and unchanged level of troponin on r epeat evaluation 07/11/2018. No acute events overnight. Patient denies any fever, chills, nausea, vomiting, diarrhea, constipation, lightheadedness, focal neurological deficit. Was evaluated by physical therapy today to ambulate 100 feet and is stating, unsafe, knee buckling, normal based gait pattern with constant cues given to stand upright. Mentation was [id number] patient condition is for patient to be discharged to SNF. 07/10/2018. MRI brain no MR evidence of acute ischemic changes acute intracranial hemorrhage mass-effect or midline shift. 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 Negative for acute stroke. Doppler no hemodynamically significant stenosis. 2D echo left ventricular ejection fraction more than 60%. No thrombus. 07/12/2018. No acute events overnight. Patient denies any lightheadedness, focal neurological deficit, fever, chills, nausea, vomiting, diarrhea, constipation or any urinary symptoms. Patient still has unsteady gait and bilateral upper extremity resting and intention tremor. 07/13/2018. Overnight patient has had a mild left facial droop and left hand numbness. Blood pressure was checked and systolic blood pressure was 190-200. Was started on Catapres and CT head was done which did not show any acute abnormalities. This morning on my encounter was saying that he is feels tired otherwise his neurological symptoms had resolved. A repeat MRI head been obtained but pending the final report. His tremors and loss of balance has im proved since being started on carbidopa levodopa and benztropine. He is also able to walk about 20-30 feet with the help of front-wheeled walker and nurses assistance gait seems to have improved spasticity very unstable. On my encounter he was alert oriented x3 not in any apparent distress. Was ready to be transferred to inpatient rehab however he started to have A. fib RVR, transfer had to be held and cardiology consulted. 07/15/2018-patient is comfortably in the bed looking at the menu. No complaints. Communicating okay. He was started on Rogelio 2.5 mg p.o. twice daily for atrial fibrillation. Potassium level came back up 5.4. Started back on Veltassa. We are going to check the labs again tomorrow. MRI done on 2018- for acute strokes. No acute events in the last 24 hours. Patient is afebrile. Reason For Visit: TIA Physical Exam Vital Signs: Temp Pulse Resp BP Pulse Ox 97.4 F 71 16 144/59 H 99 07/15/18 08:13 07/15/18 08:13 07/15/18 08:13 07/15/18 08:13 07/15/18 08:13 Intake & Output 07/14/18 07/15/18 07/16/18 06:59 06:59 06:59 Intake Total 944 1071 Output Total 750 425 Balance 194 646 Weight 77.9 kg 77.9 kg General appearance: PRESENT: no acute distress Head exam: PRESENT: atraumatic Eye exam: PRESENT: PERRLA Neck exam: ABSENT: carotid bruit, JVD, lymphadenopathy, thyromegaly Respiratory exam: PRESENT: clear to auscultation mook. ABSENT: rales, rhonchi, wheezes Cardiovascular exam: PRESENT: irregular rhythm, systolic murmur, tachycardia GI/Abdominal exam: PRESENT: normal bowel sounds, soft. ABSENT: distended, guarding, mass, organolmegaly, rebound, tenderness Extremities exam: PRESENT: full ROM. ABSENT: calf tenderness, clubbing, pedal edema Neurological exam: PRESENT: alert, awake, oriented to person, oriented to place, oriented to time, oriented to situation, CN II-XII grossly intact. ABSENT: motor sensory deficit Psychiatric exam: PRESENT: appropriate affect, normal mood. ABSENT: homicidal ideation, suicidal ideation Results Laboratory Results: 07/15/18 05:46 07/15/18 05:46 07/15/18 07/15/18 05:46 05:46 WBC 8.5 RBC 2.91 L Hgb 10.0 L Hct 29.2 L MCV 100 H MCH 34.3 H MCHC 34.2 RDW 20.5 H Plt Count 152 Seg Neutrophils % 74.4 Lymphocytes % 14.5 Monocytes % 10.7 Eosinophils % 0.1 Basophils % 0.3 Absolute Neutrophils 6.3 Absolute Lymphocytes 1.2 Absolute Monocytes 0.9 Absolute Eosinophils 0.0 Absolute Basophils 0.0 Sodium 137.9 Potassium 5.4 H Chloride 107 Carbon Dioxide 21 L Anion Gap 10 BUN 62 H Creatinine 3.88 H Est GFR ( Amer) 18 L Est GFR (Non-Af Amer) 15 L Glucose 125 H Calcium 9.5 Magnesium 2.1 Total Bilirubin 0.7 AST 40 ALT 30 Alkaline Phosphatase 65 Total Protein 6.9 Albumin 3.9 07/09/18 07/09/18 07/10/18 20:48 20:48 02:55 Creatine Kinase 180 H Troponin I 0.078 0.073 NT-Pro-B Natriuret Pep 218 07/10/18 10:44 Creatine Kinase Troponin I 0.079 NT-Pro-B Natriuret Pep Impressions: Chest X-Ray 07/09/18 00:00 IMPRESSION: No acute cardiopulmonary process copyright 2011 [employer]- All Rights Reserved Brain MRI with MRA 07/10/18 00:00 IMPRESSION: No MR evidence of acute ischemic change, acute intracranial hemorrhage, mass effect, or midline shift Extensive small vessel ischemic change in the hemispheric white matter and elaine with 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 Unremarkable [place] [facility] [place] MRA exam EVIDENCE OF ACUTE STROKE: NO. Carotid Doppler Study 07/10/18 00:00 IMPRESSION: NO HEMODYNAMICALLY SIGNIFICANT STENOSIS. Head CT 07/12/18 00:00 IMPRESSION: Age-appropriate atrophy with small vessel ischemic change TECHNICAL DOCUMENTATION: Quality ID # 436: Final reports with documentation of one or more dose reduction techniques (e.g., Automated exposure control, adjustment of the mA and/or kV according to patient size, use of iterative reconstruction technique) copyright 2011 [employer]- All Rights Reserved Head MRI 07/13/18 00:00 IMPRESSION: ATROPHY AND CHRONIC MICRO-VASCULAR ISCHEMIC CHANGES. OTHERWISE NORMAL MRI OF THE BRAIN WITHOUT INTRAVENOUS GADOLINIUM CONTRAST. EVIDENCE OF ACUTE STROKE: NO. Assessment & Plan - Diagnosis (1) Transient ischemic attack (TIA) Is this a current diagnosis for this admission?: Yes Plan: No acute events overnight. Patient alert and oriented x3. Has a aphasia has re solved. Continue statins, aspirin, optimize blood pressure. PT OT ST. Pending transfer to rehab. 07/12/2018. CT head age-appropriate atrophy with small vessel ischemic changes. 07/10/2018. MRI brain no MR evidence of acute ischemic changes, acute intracranial hemorrhage, mass-effect or midline shift. No evidence of acute stroke. 07/10/2018. 2D echo left ventricular ejection fraction 60%. No septal defect. No thrombus. 07/10/2018. ECG first-degree AV block. LVH with secondary repolarization abnormality anterior infarct old. 07/10/2018: Doppler no hemodynamically significant stenosis. 07/10/2018: 2D echo left ventricular ejection fraction more than 60%. No thrombus. 07/09/2018. CT head chronic white matter disease with old infarcts in the bilateral basal ganglia. 07/15/2018-CT head was negative for acute changes. MRI of the brain was negative for acute changes. Transient ischemic attack is resolved. No neurological symptoms are noticed. pt comfortably in the bed communicating okay. (2) HTN (hypertension) Is this a current diagnosis for this admission?: Yes Plan: Better not optimized. SBP 130-140s. DC Cozaar due to hyperkalemia and worsening kidney function. Continue clonidine, amlodipine, hydralazine, Lasix. Adjust meds as needed. He received 1 dose of propranolol for underlying tremor but he became bradycardic and it was stopped. 07/15/2018-patient blood pressure today is 144/60 with a heart rate of 71. Blood pressure is relatively controlled. Patient is presently on amlodipine 10 mg daily, clonidine patch TTS, hydralazine 100 mg p.o. every 8 hours, metoprolol 25 mg p.o. every 12 hours. Plan is to continue the present management. Lasix is discontinued. (3) Atrial fibrillation Qualifiers: Atrial fibrillation type: chronic Qualified Code(s): I48.2 - Chronic atrial fibrillation Is this a current diagnosis for this admission?: Yes Plan: Better not optimized. SBP 130-140s. DC Cozaar due to hyperkalemia and worsening kidney function. Continue clonidine, amlodipine, hydralazine, Lasix. Adjust meds as needed. He received 1 dose of propranolol for underlying tremor but he became bradycardic and it was stopped. 07/15/2018-patient has history of atrial fibrillation which was chronic cardiology consult was done patient was started on Eliquis 2.5 mg p.o. daily. Patient is also on metoprolol 25 mg p.o. every 12 hours. Heart rate today is a 71. Patient still have irregular heartbeat. (4) CKD (chronic kidney disease), stage III Is this a current diagnosis for this admission?: Yes Plan: Nonoliguric. Mild increase in patent and BUN. Will DC Lasix. Electrolytes within normal limits. Monitor electrolytes and volume status. Outpatient nephrology follow-up. 07/15/2018-patient's creatinine today is 3.88 it has a stage III kidney disease. Lasix were discontinued. Blood pressure is stable. Potassium is 5.4 to give a Veltassa today. To recheck his labs again tomorrow. (5) Hyperkalemia Is this a current diagnosis for this admission?: Yes Plan: 07/15/2018-repeat potassium level today is 5.4. Veltassa is restarted today to recheck CMP tomorrow. (6) Physical deconditioning Is this a current diagnosis for this admission?: Yes Plan: 07/15/2018 physical deconditioning most likely secondary to chronic locular infarct with residual deficits. Plan is to continue the physical therapy most likely may go to a fdc facility tomorrow. (7) Tremor Is this a current diagnosis for this admission?: Yes Plan: Multifactorial. Likely essential tremor, neurodegenerative disorder such as Parkinson disease, residual neurological deficit due to history of lacunar infarct. Patient has unsteady shuffling gait, cogwheel rigidity bilateral upper extremity elbow joints, he also has intention and resting tremor raises question of Parkinson disease. Mild improvement since being started on levodopa/carbidopa and benztropine but had to be DC'd because of worsening neurologic function which I am not sure it was related to levodopa and carbidopa but at this point I believe we should hold until he is seen as outpatient by a neurologist. 07/15/2018-patient still have a tremors. Most likely essential tremor. He is on metoprolol 25 mg p.o. twice a day. He may need to see a neurologist as an outpatient for further evaluation. - Time Time Spent with patient: 15-24 minutes Medications reviewed and adjusted accordingly: Yes
[2018-07-15] MEDS ORDERED: PATIROMER 8.4 GM SUSP PACKET PO SCH (17:00)
[2018-07-15] MEDS: PATIROMER 8.4 GM SUSP PACKET PO SCH (19:38)
[2018-07-15] MEDS: ATORVASTATIN CALCIUM 40 MG TABLET PO SCH (22:51)
[2018-07-15] MEDS: TAMSULOSIN HCL 0.4 MG CAP.SR.24H PO SCH (22:51)
[2018-07-15] MEDS: FAMOTIDINE 20 MG TABLET PO SCH (22:52)
[2018-07-16] MEDS: HYDROCODONE/ACETAMINOPHEN 5-325 MG TABLET PO PRN (04:07)
[2018-07-16 05:39] LABS: ABSOLUTE BASOPHILS # (AUTO) 0.1 10^3/uL (0.0-0.2); ABSOLUTE LYMPHOCYTES (AUTO) 1.3 10^3/uL (0.5-4.7); ABSOLUTE MONOCYTES (AUTO) 0.9 10^3/uL (0.1-1.4); ABSOLUTE NEUT (AUTO) 8.4 10^3/uL (1.7-8.2); BASOPHILS % (AUTO) 0.7 % (0-2); HEMATOCRIT 29.5 % (37.9-51.0); HEMOGLOBIN 10.3 g/dL (13.5-17.0); LYMPHOCYTES % (AUTO) 12.6 % (13-45); MEAN CORPUSCULAR HEMOGLOBIN 34.7 pg (27.0-33.4); MEAN CORPUSCULAR HGB CONC 34.9 g/dL (32.0-36.0); MEAN CORPUSCULAR VOLUME 99 fl (80-97); MONOCYTES % (AUTO) 8.6 % (3-13); PLATELET COUNT 168 10^3/uL (150-450); RED BLOOD COUNT 2.97 10^6/uL (4.35-5.55); SEGMENTED NEUTROPHILS % (AUTO) 78.1 % (42-78); TOTAL CELLS COUNTED % (AUTO) 100 %; WHITE BLOOD COUNT 10.7 10^3/uL (4.0-10.5)
[2018-07-16] MEDS: LEVOTHYROXINE SODIUM 0.075 MG TABLET PO SCH (06:21)
[2018-07-16] MEDS: HYDRALAZINE HCL 50 MG TABLET PO SCH ×3 (06:21→21:53)
[2018-07-16 06:34] LABS: ALANINE AMINOTRANSFERASE 47 U/L (21-72); ALKALINE PHOSPHATASE 69 U/L (38-126); ANION GAP 8 (5-19); ASPARTATE AMINO TRANSFERASE 62 U/L (17-59); BILIRUBIN,DIRECT 0.4 mg/dL (0.0-0.4); BILIRUBIN,TOTAL 0.7 mg/dL (0.2-1.3); BLOOD UREA NITROGEN 72 mg/dL (7-20); CALCIUM 9.5 mg/dL (8.4-10.2); CARBON DIOXIDE 21 mmol/L (22-30); CHLORIDE 109 mmol/L (98-107); GLUCOSE 106 mg/dL (75-110); SODIUM 138.4 mmol/L (137-145)
[2018-07-16] MEDS ORDERED: NORMAL SALINE 1000 ML 1,000 ML IV PRN ×2 (08:10→15:55)
[2018-07-16] MEDS ORDERED: SODIUM POLYSTYRENE SULFONATE 15 GM/60 ML PO ONE (09:00)
[2018-07-16] MEDS: AMLODIPINE BESYLATE 5 MG TABLET PO SCH (09:29)
[2018-07-16] MEDS: DOCUSATE SODIUM 100 MG CAPSULE PO SCH ×3 (09:30→21:52)
[2018-07-16] MEDS: METOPROLOL SUCCINATE 25 MG TAB.SR.24H PO SCH ×2 (09:30→21:52)
[2018-07-16] MEDS: PREDNISONE 20 MG TABLET PO SCH (09:30)
[2018-07-16] MEDS: ASPIRIN 81 MG TABLET, CHEWABLE PO SCH (09:30)
[2018-07-16] MEDS: MULTIVIT-STRESS FORMULA/ZINC TABLET PO SCH (09:30)
[2018-07-16] MEDS: MULTIVITAMIN TABLET PO SCH (09:30)
[2018-07-16] MEDS: APIXABAN 2.5 MG TABLET PO SCH ×3 (09:31→21:56)
[2018-07-16] MEDS: TAMSULOSIN HCL 0.4 MG CAP.SR.24H PO SCH ×2 (11:25→21:53)
--- NOTE | 2018-07-16 13:41 | PDOC PROGRESS REPORT ---
Subjective Progress Note for:: 07/16/18 Subjective:: The patient is an 87-year-old male with past medical history of atrial fibrillation, hypertension, COPD, hypothyroidism, CKD, arthritis, gout, tobacco dependency, who was admitted 07/10/2018 for generalized weakness/TIA workup. The patient was seen on morning rounds. He was found resting in bed comfortably on room air. He reports that he is feeling well today and has no questions or concerns. He denies fever, chills, headache, chest pain, palpitations, dyspnea, orthopnea, abdominal pain, nausea, vomiting, diarrhea. No concerns per nursing. Reason For Visit: TIA Physical Exam Vital Signs: Temp Pulse Resp BP Pulse Ox 97.9 F 72 16 126/57 H 98 07/16/18 11:52 07/16/18 11:52 07/16/18 11:52 07/16/18 11:52 07/16/18 11:52 Intake & Output 07/15/18 07/16/18 07/17/18 06:59 06:59 06:59 Intake Total 1071 888 Output Total 425 1300 Balance 646 -412 Weight 77.9 kg 78.2 kg General appearance: PRESENT: no acute distress, well-developed, well-nourished Head exam: PRESENT: atraumatic, normocephalic Eye exam: PRESENT: conjunctiva pink, EOMI, PERRLA. ABSENT: scleral icterus Mouth exam: PRESENT: moist, tongue midline Neck exam: ABSENT: carotid bruit, JVD, lymphadenopathy, thyromegaly Respiratory exam: PRESENT: clear to auscultation mook, symmetrical, unlabored. ABSENT: rales, rhonchi, wheezes Cardiovascular exam: PRESENT: irregular rhythm, systolic murmur. ABSENT: diastolic murmur, rubs Pulses: PRESENT: normal dorsalis pedis pul Vascular exam: PRESENT: normal capillary refill GI/Abdominal exam: PRESENT: normal bowel sounds, soft. ABSENT: distended, guarding, mass, organolmegaly, rebound, tenderness Rectal exam: PRESENT: deferred Extremities exam: PRESENT: full ROM. ABSENT: calf tenderness, clubbing, pedal edema Neurological exam: PRESENT: alert, awake, oriented to person, oriented to place, oriented to time, oriented to situation, CN II-XII grossly intact. ABSENT: motor sensory deficit Psychiatric exam: PRESENT: appropriate affect, normal mood. ABSENT: homicidal ideation, suicidal ideation Skin exam: PRESENT: dry, intact, warm. ABSENT: cyanosis, rash Results Laboratory Results: 07/16/18 05:28 07/16/18 05:28 07/16/18 07/16/18 05:28 05:28 WBC 10.7 H RBC 2.97 L Hgb 10.3 L Hct 29.5 L MCV 99 H MCH 34.7 H MCHC 34.9 RDW 20.0 H Plt Count 168 Seg Neutrophils % 78.1 H Lymphocytes % 12.6 L Monocytes % 8.6 Eosinophils % 0.0 Basophils % 0.7 Absolute Neutrophils 8.4 H Absolute Lymphocytes 1.3 Absolute Monocytes 0.9 Absolute Eosinophils 0.0 Absolute Basophils 0.1 Sodium 138.4 Potassium 6.0 H* Chloride 109 H Carbon Dioxide 21 L Anion Gap 8 BUN 72 H Creatinine 3.47 H Est GFR ( Amer) 20 L Est GFR (Non-Af Amer) 17 L Glucose 106 Calcium 9.5 Magnesium 2.2 Total Bilirubin 0.7 AST 62 H ALT 47 Alkaline Phosphatase 69 Total Protein 7.0 Albumin 4.0 07/09/18 07/09/18 07/10/18 20:48 20:48 02:55 Creatine Kinase 180 H Troponin I 0.078 0.073 NT-Pro-B Natriuret Pep 218 07/10/18 10:44 Creatine Kinase Troponin I 0.079 NT-Pro-B Natriuret Pep Impressions: Chest X-Ray 07/09/18 00:00 IMPRESSION: No acute cardiopulmonary process copyright 2011 [id number]- All Rights Reserved Brain MRI with MRA 07/10/18 00:00 IMPRESSION: No MR evidence of acute ischemic change, acute intracranial hemorrhage, mass effect, or midline shift Extensive small vessel ischemic change in the hemispheric white matter and elaine with 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 Unremarkable [place] MRA exam EVIDENCE OF ACUTE STROKE: NO. Carotid Doppler Study 07/10/18 00:00 IMPRESSION: NO HEMODYNAMICALLY SIGNIFICANT STENOSIS. Head CT 07/12/18 00:00 IMPRESSION: Age-appropriate atrophy with small vessel ischemic change TECHNICAL DOCUMENTATION: Quality ID # 436: Final reports with documentation of one or more dose reduction techniques (e.g., Automated exposure control, adjustment of the mA and/or kV according to patient size, use of iterative reconstruction technique) copyright 2010 [id number]- All Rights Reserved Head MRI 07/13/18 00:00 IMPRESSION: ATROPHY AND CHRONIC MICRO-VASCULAR ISCHEMIC CHANGES. OTHERWISE NORMAL MRI OF THE BRAIN WITHOUT INTRAVENOUS GADOLINIUM CONTRAST. EVIDENCE OF ACUTE STROKE: NO. Assessment & Plan - Diagnosis (1) Transient ischemic attack (TIA) Is this a current diagnosis for this admission?: Yes Plan: TIA has resolved. Patient is alert and oriented x3, intermittently forgetful per nursing. Aphasia has resolved. CT head age-appropriate atrophy with small vessel ischemic changes. MRI brain no MR evidence of acute ischemic changes, acute intracranial hemorrhage, mass-effect or midline shift. No evidence of acute stroke. 2D echo left ventricular ejection fraction 60%. No septal defect. No thrombus. ECG first-degree AV block. LVH with secondary repolarization abnormality anterior infarct old. Doppler no hemodynamically significant stenosis. The patient was admitted to [facility] on continuous cardiac telemetry. He is noted to be in atrial fibrillation and has been started on renally dosed Eliquis. We will continue daily statin and aspirin therapy. PT/OT/ST evaluations have been completed. Patient has a bed offer at [facility]; anticipate d/c tomorrow if hyperkalemia is improved. (2) HTN (hypertension) Is this a current diagnosis for this admission?: Yes Plan: Acceptable blood pressures for age. Cozaar was discontinued secondary to worsening hyperkalemia. Continue amlodipine 10 mg daily, clonidine patch, hydralazine 100 mg every every 8 hours, metoprolol 25 mg every 12 hours. Cardiac diet. (3) Atrial fibrillation Qualifiers: Atrial fibrillation type: chronic Qualified Code(s): I48.2 - Chronic atrial fibrillation Is this a current diagnosis for this admission?: Yes Plan: Pt with hx of chronic atrial fibrilation. Cardiology consulted; appreciate their recommendations. Rate controlled on metoprolol. As started renally dose Eliquis 2.5 mg twice daily. Continue daily aspirin. (4) CKD (chronic kidney disease), stage III Is this a current diagnosis for this admission?: Yes Plan: Nonoliguric. Baseline creatinine of 2.40. Peaked at 3.88 and now trending down but has not entirely returned to baseline. BUN remains elevated, bicarb low at 21, worsened hyperkalemia today. Furosemide was discontinued yesterday. Normal saline times 1 L. Encourage p.o. fluids. Have discontinued the patient's allopurinol; discussed with patient he is aware that this may precipitate a gout flare but wishes to protect his kidneys. We will follow serial chemistries; if does not demonstrate improvement, anticipate nephrology consultation and close outpatient follow-up. (5) Hyperkalemia Is this a current diagnosis for this admission?: Yes Plan: Worsened today; increased to 6.0. Cozaar has been discontinued. Veltassa initiated yesterday. Of note, Lasix was discontinued yesterday secondary to worsening Cr; possibly accounts for some increase in potassium. Kayexalate x1 today. Will monitor serial chemistries. (6) Hypothyroid Qualifiers: Hypothyroidism type: unspecified Qualified Code(s): E03.9 - Hypothyroidism, unspecified Is this a current diagnosis for this admission?: Yes Plan: TSH elevated to 13.6, however, free T4 (0.84) C's and free T3 (3.43) are normal. Continue home dose levothyroxine. (7) Physical deconditioning Is this a current diagnosis for this admission?: Yes Plan: PT/OT evaluations have been completed. Plan to discharge to [facility] for continued rehab. (8) Tremor Is this a current diagnosis for this admission?: Yes Plan: Multifactorial; likely essential tremor, however, neuro degenerative disorder such as Parkinson's disease or residual from history of lacunar infarct is considered. He was briefly tried on levodopa/carbidopa and benzotroponin, these had to be discontinued due to worsening neurological function; previous provider was not convinced that his decreased mental status was directly related to the medication, however, is hesitant to resume an inpatient setting. Continue metoprolol as above for afib/HTN (may provide some benefit) and recomme nd outpatient neurology follow up. - Time Time Spent with patient: 15-24 minutes Medications reviewed and adjusted accordingly: Yes Anticipated discharge: SNF Within: within 24 hours - if hyperkalemia and creatinine are improved
[2018-07-16 15:05] LABS: ANION GAP 14 (5-19); BLOOD UREA NITROGEN 70 mg/dL (7-20); CALCIUM 9.3 mg/dL (8.4-10.2); CARBON DIOXIDE 18 mmol/L (22-30); CHLORIDE 107 mmol/L (98-107); GLUCOSE 108 mg/dL (75-110); SODIUM 138.8 mmol/L (137-145)
[2018-07-16 15:15] LABS: POTASSIUM 4.8 mmol/L (3.6-5.0)
[2018-07-16] MEDS: PATIROMER 8.4 GM SUSP PACKET PO SCH (17:58)
[2018-07-16] MEDS: ATORVASTATIN CALCIUM 40 MG TABLET PO SCH (21:53)
[2018-07-16] MEDS: FAMOTIDINE 20 MG TABLET PO SCH (21:53)
[2018-07-17] MEDS: HYDRALAZINE HCL 50 MG TABLET PO SCH ×2 (05:31→13:08)
[2018-07-17] MEDS: LEVOTHYROXINE SODIUM 0.075 MG TABLET PO SCH (05:31)
[2018-07-17] MEDS: AMLODIPINE BESYLATE 5 MG TABLET PO SCH (09:49)
[2018-07-17] MEDS: DOCUSATE SODIUM 100 MG CAPSULE PO SCH (09:49)
[2018-07-17] MEDS: APIXABAN 2.5 MG TABLET PO SCH (09:50)
[2018-07-17] MEDS: ASPIRIN 81 MG TABLET, CHEWABLE PO SCH (09:50)
[2018-07-17] MEDS: PREDNISONE 20 MG TABLET PO SCH (09:50)
[2018-07-17] MEDS: MULTIVITAMIN TABLET PO SCH (09:50)
[2018-07-17] MEDS: METOPROLOL SUCCINATE 25 MG TAB.SR.24H PO SCH (09:50)
[2018-07-17] MEDS: MULTIVIT-STRESS FORMULA/ZINC TABLET PO SCH (09:50)
--- NOTE | 2018-07-17 12:57 | PDOC TRANSFER SUMMARY ---
General - Admit/Disc Date/PCP Admission Date/Primary Care Provider: 07/11/18 09:25 Morris CHRISTIANSON MD Discharge Date: 07/17/18 - Discharge Diagnosis (1) Transient ischemic attack (TIA) Is this a current diagnosis for this admission?: Yes Summary: TIA has resolved. Patient is alert and oriented x3, intermittently forgetful per nursing. Aphasia has resolved. CT head age-appropriate atrophy with small vessel ischemic changes. MRI brain no MR evidence of acute ischemic changes, acute intracranial hemorrhage, mass-effect or midline shift. No evidence of acute stroke. 2D echo left ventricular ejection fraction 60%. No septal defect. No thrombus. ECG first-degree AV block. LVH with secondary repolarization abnormality anterior infarct old. Doppler no hemodynamically significant stenosis. The patient was admitted to [facility] on continuous cardiac telemetry. He was noted to be in atrial fibrillation (chronic) and has been started on renally dosed Eliquis. Recommend continuing daily statin and aspirin therapy. PT/OT/ST evaluations have been completed; recommend continued skilled physical therapy services. Patient has a bed offer at [facility]. He is discharged in stable condition and maintaining oxygen saturations on room air. (2) HTN (hypertension) Is this a current diagnosis for this admission?: Yes Summary: Acceptable blood pressures for age; 153/58 today. Cozaar previously was discontinued secondary to worsening hyperkalemia. Recommend continuing amlodipine 10 mg daily, clonidine patch, hydralazine 100 mg every every 8 hours, metoprolol 25 mg every 12 hours. (3) Atrial fibrillation Is this a current diagnosis for this admission?: Yes Summary: Pt with hx of chronic atrial fibrilation. Cardiology was consulted consulted; appreciate their recommendations. Recommend continuing metoprolol for rate control. Continue renally dose Eliquis 2.5 mg twice daily. Continue daily aspirin. (4) CKD (chronic kidney disease), stage III Is this a current diagnosis for this admission?: Yes Summary: Nonoliguric. Baseline creatinine of 2.40. Peaked at 3.88 and now trending down (Cr 3.17 today) but has not entirely returned to baseline (Cr 2.50). Furosemide has been discontinued. Have provider gentle IV fluids. Recommend continuing to encourage p.o. fluids. Have discontinued the patient's allopurinol; discussed with patient he is aware that this may precipitate a gout flare but wishes to protect his kidneys Recommend follow up BMP in 3-5 days. (5) Hyperkalemia Is this a current diagnosis for this admission?: Yes Summary: Resolved; potassium 4.8 today. Cozaar has been discontinued. Veltassa initiated yesterday; continue daily. Recommend follow up BMP in 3-5 days. (6) Hypothyroid Is this a current diagnosis for this admission?: Yes Summary: TSH elevated to 13.6, however, free T4 (0.84) and free T3 (3.43) are normal. Continue home dose levothyroxine. (7) Physical deconditioning Is this a current diagnosis for this admission?: Yes Summary: Discharge to [facility] for continued skilled physical therapy. (8) Tremor Is this a current diagnosis for this admission?: Yes Summary: Multifactorial; likely essential tremor, however, neuro degenerative disorder such as Parkinson's disease or residual from history of lacunar infarct is considered. He was briefly tried on levodopa/carbidopa and benzotroponin, these had to be discontinued due to worsening neurological function; previous provider was not convinced that his decreased mental status was directly related to the medication, however, is hesitant to resume an inpatient setting. Continue metoprolol as above for afib/HTN (may provide some benefit) and recommend outpatient neurology follow up. - Additional Information Resuscitation Status: Full Code Discharge Diet: Cardiac, Diabetic Discharge Activity: Activity As Tolerated, Balance Activity w/Rest, Slowly I ncrease Activity, Supervised Activity Prescriptions: Allopurinol [Zyloprim 100 mg Tablet] 100 mg PO DAILY #30 tablet Apixaban [Eliquis 2.5 mg Tablet] 2.5 mg PO Q12 #60 tablet Atorvastatin Calcium [Lipitor 40 mg Tablet] 40 mg PO QHS #30 tablet Clonidine [Catapres-Tts 3 (0.3 mg/24 Hr) Transderm Patch] 1 each TD Sa@10 #10 patch.tdwk Famotidine [Pepcid 20 mg Tablet] 20 mg PO QHS #30 tablet Hydralazine HCl [Apresoline 50 mg Tablet] 100 mg PO Q8 #90 tablet Hydrocodone/Acetaminophen [Rochelle 5-325 mg Tablet] 1 tab PO Q6HP PRN #12 tablet PRN Reason: Metoprolol Succinate [Toprol Xl 25 mg Tab.sr] 25 mg PO Q12 #60 tab.sr.24h Multivit-Stress Formula/Zinc [Zbec Tablet] 1 tab PO DAILY #90 tablet Patiromer Calcium Sorbitex [Veltassa 8.4 gm Susp Packet] 25.2 gm PO QPM #90 packet Home Medications: Albuterol Sulfate [Proair HFA Inhalation Aerosol 8.5 gm MDI] 1 puff IH Q4 PRN 11/17/15 Aspirin [Aspirin 81 mg Chewable Tablet] 1 tab PO DAILY 07/10/18 Calcitriol [Rocaltrol 0.25 mcg Capsule] 0.25 mcg PO MOFR@1000 07/10/18 Levothyroxine Sodium [Synthroid 0.075 mg Tablet] 1 tab PO DAILY 07/10/18 Multivitamin/Iron/Folic Acid [Centrum Complete Multivit Tab] 1 tab PO DAILY 07/10/18 Tamsulosin HCl [Flomax 0.4 mg Cap.sr] 0.4 mg PO QPM 07/10/18 Telmisartan 20 mg PO DAILY 07/10/18 Allopurinol [Zyloprim 100 mg Tablet] 100 mg PO DAILY #30 tablet 07/17/18 Apixaban [Eliquis 2.5 mg Tablet] 2.5 mg PO Q12 #60 tablet 07/17/18 Atorvastatin Calcium [Lipitor 40 mg Tablet] 40 mg PO QHS #30 tablet 07/17/18 Clonidine [Catapres-Tts 3 (0.3 mg/24 Hr) Transderm Patch] 1 each TD Sa@10 #10 patch.tdwk 07/17/18 Famotidine [Pepcid 20 mg Tablet] 20 mg PO QHS #30 tablet 07/17/18 Hydralazine HCl [Apresoline 50 mg Tablet] 100 mg PO Q8 #90 tablet 07/17/18 Hydrocodone/Acetaminophen [Rochelle 5-325 mg Tablet] 1 tab PO Q6HP PRN #12 tablet 07/17/18 Levothyroxine Sodium [Synthroid 0.075 mg Tablet] 0.075 mg PO Q6AM tablet 07/17/18 Mag Hydrox/Al Hydrox/Simeth [Maalox Plus Susp 30 Udcup] 30 ml PO Q6HP PRN udc 07/17/18 Magnesium Hydroxide [Milk of Magnesia 30 ml Udcup] 30 ml PO HSP PRN udc 07/17/18 Metoprolol Succinate [Toprol Xl 25 mg Tab.sr] 25 mg PO Q12 #60 tab.sr.24h 07/17/18 Multivit-Stress Formula/Zinc [Zbec Tablet] 1 tab PO DAILY #90 tablet 07/17/18 Patiromer Calcium Sorbitex [Veltassa 8.4 gm Susp Packet] 25.2 gm PO QPM #90 packet 07/17/18 History of Present Illness Admission Date/PCP: 07/11/18 09:25 Morris CHRISTIANSON MD History of Present Illness: Per H&P by Dr. Peña: IOANA FELICIANO is a 87 year old male who presented to the emergency room with a history of left-sided weakness and dysphasia beginning at 7:30 PM on the day prior to admission. Patient acknowledges that he had sudden onset of moderate weakness of his left arm and leg as well as mild facial drooping and moderate difficulty with his speech in that he could not express the word or words he wished to say correctly and as such was demonstrating severe stuttering or was just not able to complete sentences. He denies feeling as though he were confused as he knew exactly what he wanted to say and he understood exactly what was being said to him. He denies any other accompanying symptoms and had not experienced a loss of consciousness or recent head injury. The patient admits that his symptoms resolved gradually beginning approximately 15 minutes after onset and within an hour of the onset they had resolved completely. He denies prior similar symptoms and has not identified any aggravating or ameliorating factors for his acute weakness and dysphasia. He admits a history of chronic atrial fibrillation and he was recently taken off anticoagulant medications due to his age and risk factors. In the emergency room he was found to have a negative CT scan of the head but due to his chronic renal failure he did have a slightly elevated troponin I and as such emergency room doctor wanted to have him stay for serial cardiac enzymes to rule out a potential silent myocardial infarction despite the patient's normal EKG and unchanged level of troponin on repeat evaluation. Physical Exam Vital Signs: Temp Pulse Resp BP Pulse Ox 97.4 F 74 14 156/61 H 100 07/17/18 08:04 07/17/18 08:04 07/17/18 08:04 07/17/18 08:04 07/17/18 08:04 Intake & Output 07/16/18 07/17/18 07/18/18 06:59 06:59 06:59 Intake Total 888 1624 1000 Output Total 1300 1175 Balance -633 829 5616 Weight 78.2 kg 78 kg General appearance: PRESENT: no acute distress, cooperative, thin, well- developed Head exam: PRESENT: atraumatic, normocephalic Eye exam: PRESENT: conjunctiva pink, EOMI, PERRLA. ABSENT: scleral icterus Ear exam: PRESENT: normal external ear exam Mouth exam: PRESENT: moist, tongue midline Neck exam: ABSENT: carotid bruit, JVD, lymphadenopathy, thyromegaly Respiratory exam: PRESENT: clear to auscultation mook, symmetrical, unlabored. ABSENT: rales, rhonchi, wheezes Cardiovascular exam: PRESENT: irregular rhythm, systolic murmur. ABSENT: diastolic murmur, rubs Pulses: PRESENT: normal dorsalis pedis pul Vascular exam: PRESENT: normal capillary refill GI/Abdominal exam: PRESENT: normal bowel sounds, soft. ABSENT: distended, guarding, mass, organolmegaly, rebound, tenderness Rectal exam: PRESENT: deferred Extremities exam: PRESENT: full ROM. ABSENT: calf tenderness, clubbing, pedal edema Neurological exam: PRESENT: alert, awake, oriented to person, oriented to place, oriented to time, oriented to situation, CN II-XII grossly intact. ABSENT: motor sensory deficit Psychiatric exam: PRESENT: appropriate affect, normal mood. ABSENT: homicidal ideation, suicidal ideation Skin exam: PRESENT: dry, intact, warm. ABSENT: cyanosis, rash Results Laboratory Results: 07/16/18 05:28 07/16/18 14:24 07/16/18 14:24 Sodium 138.8 Potassium 4.8 D Chloride 107 Carbon Dioxide 18 L Anion Gap 14 BUN 70 H Creatinine 3.17 H Est GFR ( Amer) 23 L Est GFR (Non-Af Amer) 19 L Glucose 108 Calcium 9.3 07/09/18 07/09/18 07/10/18 20:48 20:48 02:55 Creatine Kinase 180 H Troponin I 0.078 0.073 NT-Pro-B Natriuret Pep 218 07/10/18 10:44 Creatine Kinase Troponin I 0.079 NT-Pro-B Natriuret Pep Impressions: Chest X-Ray 07/09/18 00:00 IMPRESSION: No acute cardiopulmonary process copyright 2011 [employer]- All Rights Reserved Brain MRI with MRA 07/10/18 00:00 IMPRESSION: No MR evidence of acute ischemic change, acute intracranial he morrhage, mass effect, or midline shift Extensive small vessel ischemic change in the hemispheric white matter and elaine with 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 Unremarkable [place] MRA exam EVIDENCE OF ACUTE STROKE: NO. Carotid Doppler Study 07/10/18 00:00 IMPRESSION: NO HEMODYNAMICALLY SIGNIFICANT STENOSIS. Head CT 07/12/18 00:00 IMPRESSION: Age-appropriate atrophy with small vessel ischemic change TECHNICAL DOCUMENTATION: Quality ID # [id number]: Final reports with documentation of one or more dose reduction techniques (e.g., Automated exposure control, adjustment of the mA and/or kV according to patient size, use of iterative reconstruction technique) copyright 2010 [employer]- All Rights Reserved Head MRI 07/13/18 00:00 IMPRESSION: ATROPHY AND CHRONIC MICRO-VASCULAR ISCHEMIC CHANGES. OTHERWISE NORMAL MRI OF THE BRAIN WITHOUT INTRAVENOUS GADOLINIUM CONTRAST. EVIDENCE OF ACUTE STROKE: NO. Transfer Plan - Disposition Transfer Plan: Follow up with primary care provider within 1 week. Recommend repeat BMP in 3-5 days. Return to the Emergency Department as needed for concerning symptoms. Qualifiers - * PATIENT BEING DISCHARGED WITH ANY OF THE FOLLOWING DIAGNOSIS: No
[2018-07-17 16:15] VITALS: BP 158/55
[2018-07-17] MEDS ORDERED: HYDROCODONE/ACETAMINOPHEN 5-325 MG TABLET PO PRN (17:35)
[2018-07-19] MEDS ORDERED: CLONIDINE 0.3 MG/24 HR PATCH.TDWK TD SCH (10:00)
== END 2018-07-17 16:54 | DRG 69 ==
LOC: ER 20:23 → INTOOBSV 07-10 02:02 → EH 07-10 02:02 → 3W 07-10 03:24 → OBSVTOIN 07-11 09:25 → 3S 07-11 20:21
PROVIDERS: ADMIT Emergency Medicine; ATTEND Emergency Medicine
DX: G45.9 Transient cerebral ischemic attack, unspecified (principal); I12.9 Hypertensive chronic kidney disease with stage 1 through stage 4 chronic kidney disease, or unspecified chronic kidney disease; E87.5 Hyperkalemia; I48.2 Chronic atrial fibrillation; N18.3 Chronic kidney disease, stage 3 (moderate); E11.22 Type 2 diabetes mellitus with diabetic chronic kidney disease; J44.9 Chronic obstructive pulmonary disease, unspecified; E03.9 Hypothyroidism, unspecified; G25.0 Essential tremor; R47.02 Dysphasia; R29.810 Facial weakness; R53.1 Weakness; N40.0 Benign prostatic hyperplasia without lower urinary tract symptoms; Z87.891 Personal history of nicotine dependence; Z79.82 Long term (current) use of aspirin; Z79.51 Long term (current) use of inhaled steroids; Z79.899 Other long term (current) drug therapy; Z95.2 Presence of prosthetic heart valve
CPT/HCPCS: 36415; 70450; 70544; 70551; 71045; 80048; 80053; 80061; 80307; 81001; 82550; 83605; 83735; 83880; 84439; 84443; 84481; 84484; 85025; 85610; 85730; 93005; 93010; 93306; 93880; 99285; G0378; J0610; J1644; J3490; J7030; J7512

== ENCOUNTER 2018-08-14 13:25 | Emergency (ER) | payer MEDICARE ==
--- NOTE | 2018-08-14 14:49 | ER Document Report ---
ED Medical Screen (RME) - General Chief Complaint: Weakness Stated Complaint: WEAKNESS Time Seen by Provider: 08/14/18 14:36 Primary Care Provider: Morris CHRISTIANSON MD [Primary Care Provider] - Follow up as needed Notes: Patient is a 87-year-old male that presents to the emergency department for chief complaint of generalized weakness. Was recently at rehab, discharged yesterday, or possibly left AMA, at home and was weak, unable to get his strength up to walk, he was there for TIA and rehab, denies having any slurred speech, difficulty speaking, numbness, tingling or weakness on one side of the other.. ROS: Other than noted above, the 12 point review of systems was reviewed with the patient and were negative, all pertinent findings are included in the HPI. PHYSICAL EXAMINATION: Vital signs reviewed. GENERAL: Well-appearing, well-nourished and in no acute distress. HEAD: Atraumatic, normocephalic. EYES: Pupils equal round extraocular movements intact, conjunctiva are normal. ENT: Nares patent NECK: Normal range of motion CV: Heart regular rate and rhythm LUNGS: No respiratory distress Musculoskeletal: Normal range of motion NEUROLOGICAL: Normal speech, neurological exam was unremarkable, no focal neurological deficits, he actually had good strength with his upper and lower extremities, +5/5, no facial drooping, speech is clear and normal. PSYCH: Normal mood, normal affect. MDM: Patient seen and examined for rapid initial assessment. Vital signs reviewed. A comprehensive ED assessment and evaluation of the patient, analysis of test results and completion of the medical decision making process will be conducted by additional ED providers. *Note is created using voice recognition software and may contain spelling, syntax or grammatical errors. TRAVEL OUTSIDE OF THE [place] IN LAST 30 DAYS: No - Related Data Allergies/Adverse Reactions: No Known Allergies Allergy (Verified 08/14/18 13:37) Past Medical History - Social History Frequency of alcohol use: None Drug Abuse: None - Past Medical History Cardiac Medical History: Reports: Hx Atrial Fibrillation, Hx Hypertension Pulmonary Medical History: Reports: Hx COPD Denies: Hx Asthma Neurological Medical History: Denies: Hx Seizures Endocrine Medical History: Reports: Hx Hypothyroidism. Denies: Hx Diabetes Mellitus Type 1, Hx Diabetes Mellitus Type 2, Hx Hyperthyroidism Renal/ Medical History: Reports: Hx Benign Prostatic Hyperplasia. Denies: Hx Peritoneal Dialysis GI Medical History: Reports: Hx Colonoscopy, Hx Endoscopy. Denies: Hx Cirrhosis, Hx Hepatitis Musculoskeltal Medical History: Reports Hx Arthritis, Reports Hx Gout, Reports Hx Musculoskeletal Deformity, Reports Hx Musculoskeletal Trauma Psychiatric Medical History: Denies: Hx Depression Traumatic Medical History: Reports: Hx Fractures - Foot Infectious Medical History: Denies: Hx Hepatitis Past Surgical History: Reports: Hx Abdominal Surgery - Hernia Repair, Hx Appendectomy, Hx Cardiac Surgery - aortic vavle replacement., Hx Inguinal Hernia, Hx Orthopedic Surgery - R foot, Hx Tonsillectomy - Immunizations Immunizations up to date: Yes Hx Diphtheria, Pertussis, Tetanus Vaccination: Yes History of Influenza Vaccine for 02/2017 - 07/2017 Season: Yes Physical Exam - Vital signs Vitals: Temp Pulse Resp BP Pulse Ox 98.5 F 71 16 121/97 H 100 08/14/18 14:02 08/14/18 14:02 08/14/18 14:02 08/14/18 14:02 08/14/18 14:02 Course - Vital Signs Vital signs: Temp Pulse Resp BP Pulse Ox 98.5 F 71 16 121/97 H 100 08/14/18 14:02 08/14/18 14:02 08/14/18 14:02 08/14/18 14:02 08/14/18 14:02 Doctor's Discharge - Discharge Referrals: Morris CHRISTIANSON MD [Primary Care Provider] - Follow up as needed
--- NOTE | 2018-08-14 15:54 | RADIOLOGY REPORT (SQ) ---
EXAM DESCRIPTION: CHEST SINGLE VIEW COMPLETED DATE/TIME: 08/14/2018 3:46 pm REASON FOR STUDY: shortness of breath COMPARISON: Chest films 07/09/2018, 09/05/2017, 07/15/2016 EXAM PARAMETERS: NUMBER OF VIEWS: One view. TECHNIQUE: Single frontal radiographic view of the chest acquired. RADIATION DOSE: NA LIMITATIONS: None. FINDINGS: LUNGS AND PLEURA: Chronic elevation right hemidiaphragm. Lungs are clear. No pleural eff usion or pneumothorax. MEDIASTINUM AND HILAR STRUCTURES: No masses. Contour normal. HEART AND VASCULAR STRUCTURES: No cardiomegaly. Aortic valve replacement. BONES: No acute findings. HARDWARE: None in the chest. OTHER: No other significant finding. IMPRESSION: Aortic valve replacement. Chronic elevation right hemidiaphragm. No acute findings TECHNICAL DOCUMENTATION: JOB ID: [id number] [email or web address]- All Rights Reserved Reading location - IP/workstation name: [email or web address]
[2018-08-14 16:15] LABS: ALANINE AMINOTRANSFERASE 53 U/L (21-72); ALBUMIN 3.8 g/dL (3.5-5.0); ALKALINE PHOSPHATASE 62 U/L (38-126); ANION GAP 13 (5-19); ASPARTATE AMINO TRANSFERASE 85 U/L (17-59); BILIRUBIN,DIRECT 0.6 mg/dL (0.0-0.4); BILIRUBIN,TOTAL 1.2 mg/dL (0.2-1.3); BLOOD UREA NITROGEN 51 mg/dL (7-20); CALCIUM 9.4 mg/dL (8.4-10.2); CARBON DIOXIDE 20 mmol/L (22-30); CHLORIDE 107 mmol/L (98-107); CREATINE KINASE 968 U/L (55-170); GLUCOSE 100 mg/dL (75-110); POTASSIUM 4.3 mmol/L (3.6-5.0); SODIUM 139.5 mmol/L (137-145); TOTAL PROTEIN 6.9 g/dL (6.3-8.2)
[2018-08-14 16:25] LABS: APPEARANCE,URINE SLIGHTLY-CLOUDY; BILIRUBIN,URINE NEGATIVE (NEGATIVE); COLOR,URINE YELLOW; GLUCOSE, URINE NEGATIVE (NEGATIVE); KETONES,URINE NEGATIVE (NEGATIVE); LEUKOCYTE ESTERASE,URINE NEGATIVE (NEGATIVE); NITRITE,URINE NEGATIVE (NEGATIVE); PROTEIN,URINE 100 mg/dL (NEGATIVE); URINE SPECIFIC GRAVITY 1.015; UROBILINOGEN,URINE NEGATIVE mg/dL (<2.0)
[2018-08-14 16:29] LABS: TROPONIN I 0.315 ng/mL
[2018-08-14 16:54] LABS: ABSOLUTE BASOPHILS # (AUTO) 0.1 10^3/uL (0.0-0.2); ABSOLUTE LYMPHOCYTES (AUTO) 0.8 10^3/uL (0.5-4.7); ABSOLUTE MONOCYTES (AUTO) 0.9 10^3/uL (0.1-1.4); BASOPHILS % (AUTO) 0.9 % (0-2); HEMOGLOBIN 9.5 g/dL (13.5-17.0); LYMPHOCYTES % (AUTO) 12.2 % (13-45); MEAN CORPUSCULAR HEMOGLOBIN 34.1 pg (27.0-33.4); MEAN CORPUSCULAR HGB CONC 33.9 g/dL (32.0-36.0); MEAN CORPUSCULAR VOLUME 101 fl (80-97); MONOCYTES % (AUTO) 12.9 % (3-13); PLATELET COUNT 121 10^3/uL (150-450); RED BLOOD COUNT 2.78 10^6/uL (4.35-5.55); RED CELL DISTRIBUTION WIDTH 22.1 % (11.5-14.0); TOTAL CELLS COUNTED % (AUTO) 100 %; WHITE BLOOD COUNT 6.8 10^3/uL (4.0-10.5)
[2018-08-14] MEDS ORDERED: FUROSEMIDE INJ/PF 20 MG/2 ML SDV IV ONE (19:03)
--- NOTE | 2018-08-14 20:11 | ER Document Report ---
ED General - General Chief Complaint: Weakness Stated Complaint: WEAKNESS Time Seen by Provider: 08/14/18 14:36 Primary Care Provider: Morris CHRISTIANSON MD [ACTIVE STAFF] - Follow up as needed TRAVEL OUTSIDE OF THE [place] IN LAST 30 DAYS: No - HPI Notes: Patient presents to the emergency department for evaluation of weakness. He had a CVA in June. He has been at [facility]. He stayed there 30 days and was discharged to home in the last few days. Since then he has had progressive weakness and is unable to walk without significant assistance. He also states he has had increased edema over the last week. He denies any chest pain. He has some shortness of breath with some exertion but denies any at rest. He denies any orthopnea. No fevers. No cough. Taking his medications as prescribed. - Related Data Allergies/Adverse Reactions: No Known Allergies Allergy (Verified 08/14/18 13:37) Past Medical History - General Information source: Patient, Relative - Social History Smoking Status: Former Smoker Frequency of alcohol use: None Drug Abuse: None Family History: CAD, Hyperlipidemia, Hypertension, Malignancy Patient has suicidal ideation: No Patient has homicidal ideation: No - Past Medical History Cardiac Medical History: Reports: Hx Atrial Fibrillation, Hx Hypertension Pulmonary Medical History: Reports: Hx COPD Denies: Hx Asthma Neurological Medical History: Denies: Hx Seizures Endocrine Medical History: Reports: Hx Hypothyroidism. Denies: Hx Diabetes Mellitus Type 1, Hx Diabetes Mellitus Type 2, Hx Hyperthyroidism Renal/ Medical History: Reports: Hx Benign Prostatic Hyperplasia. Denies: Hx Peritoneal Dialysis GI Medical History: Reports: Hx Colonoscopy, Hx Endoscopy. Denies: Hx Cirrhosis, Hx Hepatitis Musculoskeletal Medical History: Reports Hx Arthritis, Reports Hx Gout, Reports Hx Musculoskeletal Deformity, Reports Hx Musculoskeletal Trauma Psychiatric Medical History: Denies: Hx Depression Traumatic Medical History: Reports: Hx Fractures - Foot Infectious Medical History: Denies: Hx Hepatitis Past Surgical History: Reports: Hx Abdominal Surgery - Hernia Repair, Hx Appendectomy, Hx Cardiac Surgery - aortic vavle replacement., Hx Inguinal Hernia, Hx Orthopedic Surgery - R foot, Hx Tonsillectomy - Immunizations Immunizations up to date: Yes Hx Diphtheria, Pertussis, Tetanus Vaccination: Yes Hx Pneumococcal Vaccination: 05/20/06 Review of Systems - Review of Systems Constitutional: Weakness EENT: No symptoms reported Cardiovascular: Dyspnea, Edema Respiratory: No symptoms reported Gastrointestinal: No symptoms reported Musculoskeletal: Leg swelling Skin: No symptoms reported Neurological/Psychological: No symptoms reported Physical Exam - Vital signs Vitals: Pulse Resp BP Pulse Ox 70 14 168/89 H 98 08/14/18 13:37 08/14/18 13:37 08/14/18 13:37 08/14/18 13:37 Notes: Temperature 98.5 - Notes Notes: Vital signs reviewed, please refer to chart. Patient is normocephalic, atraumatic. Pupils equal round, reactive to light. Neck is supple without meningismus. Heart is regular rate and rhythm. Lungs are clear to auscultation bilaterally. Abdomen is soft, nontender, normoactive bowel sounds throughout. Extremities without cyanosis, clubbing. 2+ pitting edema to bilateral lower legs without posterior calf tenderness. Peripheral pulses are equal. Skin is warm and dry. Patient is awake, alert, neurological exam is nonfocal. Course - Re-evaluation Re-evalutation: 08/14/18 20:11 Patient presents emergency department for evaluation of increased weakness. He is also got some swelling. Laboratory investigations, imaging, EKG were ordered. EKG was unchanged from last month. Laboratory investigations were remarkable for an elevated proBNP, up to 8000 from 218. His troponin was 0.315. He has had mildly elevated troponins in the past, largely it contributed to his chronic kidney disease. His CK was 968, which I believe is likely secondary to inactivity. He was given aspirin, is already on Eliquis. At [address] Boston. He assures me that the patient has no coronary artery disease. We did discuss options including diuresis. He asked that the patient be started on Lasix and contact him for follow-up. Patient was given a 10 mg dose of IV Lasix here. We will send him home with a prescription for Lasix 20 mg twice a day as directed by Dr. Boston. The patient is told to call his field service technician for follow-up. He is amenable to this plan. He is to return to the emergency department with worsening or new concerning symptoms of any sort. - Vital Signs Vital signs: Temp Pulse Resp BP Pulse Ox 98.5 F 71 15 176/81 H 98 08/14/18 14:02 08/14/18 19:00 08/14/18 19:00 08/14/18 19:00 08/14/18 19:00 - Laboratory Result Diagrams: 08/14/18 15:05 08/14/18 15:05 Laboratory results interpreted by me: 08/14/18 08/14/18 08/14/18 13:59 15:05 15:05 RBC 2.78 L Hgb 9.5 L Hct 28.0 L MCV 101 H MCH 34.1 H RDW 22.1 H Plt Count 121 L Lymphocytes % 12.2 L Carbon Dioxide 20 L BUN 51 H Creatinine 2.93 H Est GFR ( Amer) 25 L Est GFR (Non-Af Amer) 20 L Direct Bilirubin 0.6 H AST 85 H Creatine Kinase 968 H NT-Pro-B Natriuret Pep Urine Protein 100 H Urine Ascorbic Acid 40 H 08/14/18 15:05 RBC Hgb Hct MCV MCH RDW Plt Count Lymphocytes % Carbon Dioxide BUN Creatinine Est GFR ( Amer) Est GFR (Non-Af Amer) Direct Bilirubin AST Creatine Kinase NT-Pro-B Natriuret Pep 8090 H Urine Protein Urine Ascorbic Acid - Diagnostic Test Radiology reviewed: Reports reviewed - No acute finding - EKG Interpretation by Me Additional EKG results interpreted by me: 08/14/18 20:13 Sinus mechanism with a rate of 77 bpm. Left axis deviation. First-degree AV block. LVH with strain pattern. No acute changes concerning for infarction. No change when compared to prior study of 07/09/18. Discharge - Discharge Clinical Impression: CKD (chronic kidney disease), stage III, Congestive heart failure (CHF), Edema, Weakness Condition: Stable Disposition: HOME, SELF-CARE Instructions: Edema, Peripheral ([facility]), Congestive Heart Failure ([facility]) Additional Instructions: Call Dr. Boston tomorrow. Set up an appointment to be seen by next week. Take the Lasix as directed. If you develop worsened or new concerning symptoms of any sort, return immediately to the emergency department for evaluation. Referrals: Morris CHRISTIANSON MD [ACTIVE STAFF] - Follow up as needed
--- NOTE | 2018-08-14 20:15 | EKG REPORT ---
SEVERITY:- ABNORMAL ECG - SINUS RHYTHM PROBABLE LEFT ATRIAL ABNORMALITY LVH WITH SECONDARY REPOLARIZATION ABNORMALITY ANTERIOR Q WAVES, POSSIBLY DUE TO LVH : Confirmed by: Aydee Boston MD 14-Aug-2018 20:14:28
[2018-08-14 21:19] VITALS: BP 178/77
== END 2018-08-14 21:00 | disposition home or self-care (01) ==
LOC: ER 13:25
DX: I13.0 Hypertensive heart and chronic kidney disease with heart failure and stage 1 through stage 4 chronic kidney disease, or unspecified chronic kidney disease (principal); N18.3 Chronic kidney disease, stage 3 (moderate); I50.9 Heart failure, unspecified; R60.0 Localized edema; R53.1 Weakness; Z87.891 Personal history of nicotine dependence; J44.9 Chronic obstructive pulmonary disease, unspecified; Z79.01 Long term (current) use of anticoagulants
CPT/HCPCS: 93005; 99285; 96374; 36415; 87086; 82550; 85025; 80053; 81001; 84484; 83880; 71045; 93010; J1940

== ENCOUNTER → 2018-10-24 | Outpatient (CLI) | payer MEDICARE ==
[2018-10-24 11:15] LABS: HEMATOCRIT 29.6 % (37.9-51.0); MEAN CORPUSCULAR HEMOGLOBIN 32.5 pg (27.0-33.4); MEAN CORPUSCULAR HGB CONC 33.8 g/dL (32.0-36.0); MEAN CORPUSCULAR VOLUME 96 fl (80-97); PLATELET COUNT 272 10^3/uL (150-450); RED BLOOD COUNT 3.07 10^6/uL (4.35-5.55); RED CELL DISTRIBUTION WIDTH 19.2 % (11.5-14.0); WHITE BLOOD COUNT 9.4 10^3/uL (4.0-10.5)
[2018-10-24 11:38] LABS: ANION GAP 11 (5-19); BLOOD UREA NITROGEN 37 mg/dL (7-20); CALCIUM 9.8 mg/dL (8.4-10.2); CARBON DIOXIDE 23 mmol/L (22-30); CHLORIDE 108 mmol/L (98-107); GLUCOSE 116 mg/dL (75-110); PHOSPHORUS 2.7 mg/dL (2.5-4.5); POTASSIUM 4.2 mmol/L (3.6-5.0)
[2018-10-24 11:47] LABS: UR PRO/CREAT RATIO RESULT 0.3 mg/mg (0.0-0.2); URINE CREATININE 142.2 mg/dL (22-328)
== END ==
LOC: OD 10:37
PROVIDERS: ATTEND Physician Assistant Medical
DX: I12.9 Hypertensive chronic kidney disease with stage 1 through stage 4 chronic kidney disease, or unspecified chronic kidney disease (principal); N18.3 Chronic kidney disease, stage 3 (moderate); D63.1 Anemia in chronic kidney disease; N25.0 Renal osteodystrophy; E87.5 Hyperkalemia
CPT/HCPCS: 36415; 80048; 82570; 83970; 84100; 84156; 85027

== ENCOUNTER → 2018-11-19 | Outpatient (CLI) | payer MEDICARE ==
[2018-11-19 10:58] LABS: HEMATOCRIT 27.3 % (37.9-51.0); HEMOGLOBIN 9.4 g/dL (13.5-17.0); MEAN CORPUSCULAR HEMOGLOBIN 32.7 pg (27.0-33.4); MEAN CORPUSCULAR HGB CONC 34.3 g/dL (32.0-36.0); MEAN CORPUSCULAR VOLUME 96 fl (80-97); PLATELET COUNT 187 10^3/uL (150-450); RED BLOOD COUNT 2.86 10^6/uL (4.35-5.55); RED CELL DISTRIBUTION WIDTH 19.8 % (11.5-14.0); WHITE BLOOD COUNT 8.8 10^3/uL (4.0-10.5)
[2018-11-19 11:31] LABS: ANION GAP 10 (5-19); BLOOD UREA NITROGEN 38 mg/dL (7-20); CALCIUM 9.1 mg/dL (8.4-10.2); CARBON DIOXIDE 25 mmol/L (22-30); CHLORIDE 107 mmol/L (98-107); GLUCOSE 118 mg/dL (75-110); IRON(TIBC) 86.7 ug/dL (49-181); POTASSIUM 4.1 mmol/L (3.6-5.0); SODIUM 141.9 mmol/L (137-145)
== END ==
LOC: OD 10:24
PROVIDERS: ATTEND Physician Assistant Medical
DX: N18.4 Chronic kidney disease, stage 4 (severe) (principal); I12.9 Hypertensive chronic kidney disease with stage 1 through stage 4 chronic kidney disease, or unspecified chronic kidney disease; R60.9 Edema, unspecified; M10.00 Idiopathic gout, unspecified site; D63.1 Anemia in chronic kidney disease
CPT/HCPCS: 36415; 80048; 82728; 83540; 83550; 85027

== ENCOUNTER 2019-01-18 23:47 | Emergency (ER) | payer MEDICARE ==
[2019-01-19] MEDS ORDERED: ASPIRIN 81 MG TABLET, CHEWABLE PO ONE (00:17)
[2019-01-19 00:28] LABS: ABSOLUTE BASOPHILS # (AUTO) 0.1 10^3/uL (0.0-0.2); ABSOLUTE EOSINOPHILS # (AUTO) 0.1 10^3/uL (0.0-0.6); ABSOLUTE LYMPHOCYTES (AUTO) 1.7 10^3/uL (0.5-4.7); ABSOLUTE MONOCYTES (AUTO) 0.7 10^3/uL (0.1-1.4); ABSOLUTE NEUT (AUTO) 5.5 10^3/uL (1.7-8.2); BASOPHILS % (AUTO) 1.3 % (0-2); EOSINOPHILS % (AUTO) 1.2 % (0-6); HEMATOCRIT 30.6 % (37.9-51.0); HEMOGLOBIN 10.3 g/dL (13.5-17.0); LYMPHOCYTES % (AUTO) 21.4 % (13-45); MEAN CORPUSCULAR HGB CONC 33.5 g/dL (32.0-36.0); MEAN CORPUSCULAR VOLUME 96 fl (80-97); MONOCYTES % (AUTO) 8.1 % (3-13); PLATELET COUNT 212 10^3/uL (150-450); RED BLOOD COUNT 3.21 10^6/uL (4.35-5.55); RED CELL DISTRIBUTION WIDTH 19.4 % (11.5-14.0); TOTAL CELLS COUNTED % (AUTO) 100 %; WHITE BLOOD COUNT 8.1 10^3/uL (4.0-10.5)
[2019-01-19 00:45] LABS: ALBUMIN 4.2 g/dL (3.5-5.0); CHLORIDE 109 mmol/L (98-107); INTERNATIONAL RATION (INR) 1.22; PROTHROMBIN TIME 15.5 SEC (11.4-15.4)
[2019-01-19 01:18] LABS: ALKALINE PHOSPHATASE 81 U/L (38-126); ANION GAP 8 (5-19); ASPARTATE AMINO TRANSFERASE 29 U/L (17-59); BILIRUBIN,DIRECT 0.5 mg/dL (0.0-0.4); BILIRUBIN,TOTAL 0.7 mg/dL (0.2-1.3); BLOOD UREA NITROGEN 43 mg/dL (7-20); CALCIUM 9.4 mg/dL (8.4-10.2); CARBON DIOXIDE 25 mmol/L (22-30); CREATINE KINASE 113 U/L (55-170); GLUCOSE 109 mg/dL (75-110); POTASSIUM 4.3 mmol/L (3.6-5.0); TOTAL PROTEIN 7.2 g/dL (6.3-8.2)
[2019-01-19 01:31] LABS: CREATINE KINASE MB 0.88 ng/mL (<4.55)
[2019-01-19 01:33] LABS: TROPONIN I 0.05 ng/mL
--- NOTE | 2019-01-19 01:49 | RADIOLOGY REPORT (SQ) ---
EXAM DESCRIPTION: [facility]: XR CHEST 2 VIEWS Views: 2 CLINICAL HISTORY: 88 years Male, CP COMPARISON: 08/14/2018 FINDINGS: There is persistent slight elevation of the right hemidiaphragm. Mild perihilar edema, but no focal consolidation. No pneumothorax or pleural effusion. Prosthetic valve is again noted. Heart size is normal. Mild aortic calcifications are again noted. Bony structures are unremarkable for age. IMPRESSION: 1. Minimal central pulmonary vascular congestion.
[2019-01-19 04:51] VITALS: BP 149/57
--- NOTE | 2019-01-19 05:29 | ER Document Report ---
Entered by ASIA PAGAN SCRIBE 01/19/19 0126 Acting as scribe for:DARIO CARTER DO ED Cardiac - General Chief Complaint: Chest Pain Stated Complaint: CHEST PAIN Time Seen by Provider: 01/19/19 00:21 Primary Care Provider: MARTHA RIBEIRO FNP [Primary Care Provider] - Follow up tomorrow Mode of Arrival: Ambulatory Information source: Patient Notes: Patient is an 88-year-old male who presents to the emergency department today with complaints of chest pain which began today while he was watching TV at around 7 PM. Patient now states he is pain-free. Patient denies any radiation of this pain, chills, fevers, nausea, shortness of breath, or abdominal pain. TRAVEL OUTSIDE OF THE [place] IN LAST 30 DAYS: No - Related Data Allergies/Adverse Reactions: No Known Allergies Allergy (Verified 01/19/19 00:53) Past Medical History - General Information source: Patient - Social History Smoking Status: Former Smoker Cigarette use (# per day): No Frequency of alcohol use: None Drug Abuse: None Lives with: Family Family History: CAD, Hyperlipidemia, Hypertension, Malignancy Patient has suicidal ideation: No Patient has homicidal ideation: No - Past Medical History Cardiac Medical History: Reports: Hx Atrial Fibrillation, Hx Hypercholes terolemia, Hx Hypertension Pulmonary Medical History: Reports: Hx COPD Endocrine Medical History: Reports: Hx Hypothyroidism Renal/ Medical History: Reports: Hx Benign Prostatic Hyperplasia GI Medical History: Reports: Hx Gastroesophageal Reflux Disease, Hx Colonoscopy, Hx Endoscopy Musculoskeletal Medical History: Reports Hx Arthritis, Reports Hx Gout, Reports Hx Musculoskeletal Deformity, Reports Hx Musculoskeletal Trauma Traumatic Medical History: Reports: Hx Fractures - Foot Past Surgical History: Reports: Hx Abdominal Surgery - Hernia Repair, Hx Appendectomy, Hx Cardiac Surgery - aortic vavle replacement., Hx Inguinal Hernia, Hx Orthopedic Surgery - R foot, Hx Tonsillectomy - Immunizations Immunizations up to date: Yes Hx Diphtheria, Pertussis, Tetanus Vaccination: Yes Hx Pneumococcal Vaccination: 05/20/06 Review of Systems - Review of Systems Constitutional: denies: Chills, Fever EENT: No symptoms reported Cardiovascular: See HPI, Chest pain Respiratory: denies: Short of breath Gastrointestinal: denies: Abdominal pain, Nausea Genitourinary: No symptoms reported Male Genitourinary: No symptoms reported Musculoskeletal: No symptoms reported Skin: No symptoms reported Hematologic/Lymphatic: No symptoms reported Neurological/Psychological: No symptoms reported -: Yes All other systems reviewed and negative Physical Exam - Vital signs Vitals: Pulse Ox 99 01/19/19 00:04 Interpretation: Normal - General General appearance: Appears well, Alert - HEENT Head: Normocephalic, Atraumatic Eyes: Normal Pupils: PERRL - Respiratory Respiratory status: No respiratory distress Chest status: Nontender Breath sounds: Normal Chest palpation: Normal - Cardiovascular Rhythm: Regular Heart sounds: Normal auscultation Murmur: No - Abdominal Inspection: Normal Distension: No distension Bowel sounds: Normal Tenderness: Nontender Organomegaly: No organomegaly - Back Back: Normal, Nontender - Extremities General upper extremity: Normal inspection, Nontender, Normal color, Normal ROM, Normal temperature General lower extremity: Normal inspection, Nontender, Normal color, Normal ROM, Normal temperature, Normal weight bearing. No: Ren's sign - Neurological Neuro grossly intact: Yes Cognition: Normal Orientation: AAOx4 Alberto Coma Scale Eye Opening: Spontaneous [place] Coma Scale Verbal: Oriented Alberto Coma Scale Motor: Obeys Commands [place] Coma Scale Total: 15 Speech: Normal Motor strength normal: LUE, RUE, LLE, RLE Sensory: Normal - Psychological Associated symptoms: Normal affect, Normal mood - Skin Skin Temperature: Warm Skin Moisture: Dry Skin Color: Normal Course - Re-evaluation Re-evalutation: 01/19/19 05:28 Patient with chest pain that began earlier tonight that is resolved on its own. No acute findings on EKG. Troponin negative x2. No history of coronary artery disease. Patient is to follow-up with his doctor this week. Understands and agrees with plan. Stable for discharge. Return if any further worsening symptoms. - Vital Signs Vital signs: Temp Pulse Resp BP Pulse Ox 97.9 F 11 L 149/57 H 96 01/19/19 00:13 01/19/19 04:32 01/19/19 04:32 01/19/19 04:32 - Laboratory Result Diagrams: 01/19/19 00:10 01/19/19 00:10 Laboratory results interpreted by me: 01/19/19 01/19/19 01/19/19 00:10 00:10 00:10 RBC 3.21 L Hgb 10.3 L Hct 30.6 L RDW 19.4 H PT 15.5 H Chloride 109 H BUN 43 H Creatinine 2.51 H Est GFR ( Amer) 29 L Est GFR (MDRD) Non-Af 24 L Direct Bilirubin 0.5 H - Diagnostic Test Radiology reviewed: Reports reviewed - EKG Interpretation by Me EKG shows normal: Sinus rhythm Rate: Normal Discharge - Discharge Clinical Impression: Atypical chest pain Condition: Stable Disposition: HOME, SELF-CARE Instructions: Chest Pain of Unclear Cause ([facility]) Referrals: MARTHA RIBEIRO FNP [Primary Care Provider] - Follow up tomorrow I personally performed the services described in the documentation, reviewed and edited the documentation which was dictated to the scribe in my presence, and it accurately records my words and actions.
--- NOTE | 2019-01-20 23:26 | EKG REPORT ---
SEVERITY:- ABNORMAL ECG - SINUS RHYTHM FIRST DEGREE AV BLOCK LEFT VENTRICULAR HYPERTROPHY ANTERIOR Q WAVES, POSSIBLY DUE TO LVH BORDERLINE PROLONGED QT INTERVAL : Confirmed by: Lay Bear 20-Jan-2019 23:25:47
== END 2019-01-19 05:04 | disposition home or self-care (01) ==
LOC: ER 23:47
DX: R07.89 Other chest pain (principal); I10 Essential (primary) hypertension; J44.9 Chronic obstructive pulmonary disease, unspecified; Z87.891 Personal history of nicotine dependence
CPT/HCPCS: 36415; 71046; 80053; 82550; 82553; 84484; 85025; 85610; 93005; 93010; 99285

== ENCOUNTER → 2019-04-02 | Outpatient (CLI) | payer MEDICARE ==
[2019-04-02 11:02] LABS: HEMOGLOBIN 10.6 g/dL (13.5-17.0); MEAN CORPUSCULAR HEMOGLOBIN 32.7 pg (27.0-33.4); MEAN CORPUSCULAR HGB CONC 33.3 g/dL (32.0-36.0); MEAN CORPUSCULAR VOLUME 98 fl (80-97); PLATELET COUNT 276 10^3/uL (150-450); RED BLOOD COUNT 3.26 10^6/uL (4.35-5.55); RED CELL DISTRIBUTION WIDTH 20.5 % (11.5-14.0); WHITE BLOOD COUNT 11.2 10^3/uL (4.0-10.5)
[2019-04-02 11:23] LABS: ANION GAP 9 (5-19); BLOOD UREA NITROGEN 26 mg/dL (7-20); CALCIUM 9.4 mg/dL (8.4-10.2); CARBON DIOXIDE 26 mmol/L (22-30); CHLORIDE 108 mmol/L (98-107); GLUCOSE 105 mg/dL (75-110); PHOSPHORUS 3.3 mg/dL (2.5-4.5); POTASSIUM 4.5 mmol/L (3.6-5.0)
[2019-04-02 15:41] LABS: APPEARANCE,URINE SLIGHTLY-CLOUDY; BILIRUBIN,URINE NEGATIVE (NEGATIVE); COLOR,URINE YELLOW; GLUCOSE, URINE NEGATIVE (NEGATIVE); KETONES,URINE NEGATIVE (NEGATIVE); LEUKOCYTE ESTERASE,URINE NEGATIVE (NEGATIVE); NITRITE,URINE NEGATIVE (NEGATIVE); PROTEIN,URINE NEGATIVE (NEGATIVE); URINE SPECIFIC GRAVITY 1.006; UROBILINOGEN,URINE NEGATIVE mg/dL (<2.0)
== END ==
LOC: OD 10:30
PROVIDERS: ATTEND Physician Assistant Medical
DX: I13.0 Hypertensive heart and chronic kidney disease with heart failure and stage 1 through stage 4 chronic kidney disease, or unspecified chronic kidney disease (principal); I50.9 Heart failure, unspecified; N18.4 Chronic kidney disease, stage 4 (severe); D63.1 Anemia in chronic kidney disease; R60.9 Edema, unspecified
CPT/HCPCS: 36415; 80048; 81001; 83970; 84100; 85027